=== PATIENT | female | born 1930 | race Caucasian/White ===

== ENCOUNTER 2017-09-10 13:35 | Emergency (ER) | payer OTHER ==
[2017-09-10 14:52] LABS: Urine Bacteria >50 /HPF (<20); Urine Culture Reflex Order NOT NEEDED; Urine RBC <5 /HPF (NONE SEEN)
[2017-09-10 14:53] LABS: Urine Blood NEGATIVE (NEG); Urine Glucose NEGATIVE (NEG); Urine Protein NEGATIVE (NEG); Urine Specific Gravity 1.015 (1.005-1.030)
[2017-09-10 15:54] LABS: Absolute Lymphocytes (CBC) 1.9 K/uL (0.7-4.9); Absolute Monocytes 0.5 K/uL (0.1-1.3); Absolute Neutrophil 4.7 K/uL (1.8-8.0); Basophils % 0.7 % (0-1.3); Eosinophils % 2.5 % (0-4.4); Hematocrit 47.4 % (36.0-45.0); Lymphocytes % 25.6 % (15.3-44.8); MCH 29.4 pg (27.0-35.0); MCV 88.6 fL (80-100); MPV 8.2 fL (7.6-11.3); Monocytes % 7.3 % (3.3-12.3); RBC Red Blood Cell Count 5.34 M/uL (3.86-4.86)
[2017-09-10 16:02] LABS: Potassium 4.5 mEq/L (3.6-5.0)
[2017-09-10 16:20] LABS: Blood Morphology Comment NOT SEEN (NOT SEEN); Platelet Estimate ADEQ
[2017-09-10] MEDS ORDERED: NA CHLORIDE 0.9% 0 ML ONE (17:05)
--- NOTE | 2017-09-10 18:09 | ER ---
Nurse's Notes [facility] Name: Mame Christopher Age: 87 yrs Sex: Female : 1930 Arrival Date: 09/10/2017 Time: 13:38 Bed 26 Private MD: Diagnosis: Urinary tract infection, site not specified;Dehydration Presentation: 09/10 13:59 Presenting complaint: Patient states: I get frequent UTIs and I have one now. I was ph seen at [place] on the and they gave me antibiotics and I just don't think they helped." Pt denies fever or burning urination, reports discomfort in suprapubic area. Transition of care: patient was not received from another setting of care. Onset of symptoms was September 10, 2017. Care prior to arrival: None. 13:59 Method Of Arrival: Ambulatory ph 13:59 Acuity: ANTHONY 3 ph Triage Assessment: 14:35 General: Appears in no apparent distress. comfortable, well groomed, well developed, kr2 well nourished, Behavior is calm, cooperative, appropriate for age. Pain: Denies pain. Historical: - Allergies: 14:05 No Known Allergies; ph - Home Meds: 14:25 Eliquis 2.5 mg oral tab 1 tab 2 times per day [Active]; spironolactone 25 mg Oral tab 1 kr2 tab once daily [Active]; montelukast 10 mg oral tab 1 tab once daily [Active]; gabapentin 100 mg oral cap 100mg at breakfast, 200mg at noon, 200mg at dinner and 1500mg at bedtime [Active]; carvedilol 25 mg oral tab 1 tab 2 times per day [Active]; furosemide 40 mg Oral tab 1 tab 3 times per day [Active]; amlodipine 10 mg tab 1 tab once daily [Active]; levocetirizine 5 mg oral tab 1 tab once daily [Active]; omeprazole 40 mg Oral cpDR 1 cap once daily [Active]; levothyroxine oral 37.5mg [Active]; ipratropium-albuterol 0.5 mg-3 mg(2.5 mg base)/3 mL Inhl nebu 3 mL 4 times per day [Active]; Vitamin B-12 Oral [Active]; 14:34 Vitamin B-6 Oral [Active]; calcium [Active]; Vitamin D3 oral oral [Active]; Magnesium kr2 Oxide Oral [Active]; multivitamin with iron oral tab [Active]; Potassium Chloride Oral [Active]; Vitamin C Oral [Active]; Co Q-10 oral oral [Active]; NAC 600 mg oral cap twice a day [Active]; turmeric root extract oral oral [Active]; biotin 5000mg oral cap [Active]; - PMHx: 14:05 CHF; Atrial Fib; aortic stenosis; COPD; mitral valve prolapse; Hypertension; ph neuropathy; CLL; Hypothyroidism; - Immunization history:: Adult Immunizations up to date. - Social history:: Smoking status: Patient/guardian denies using tobacco. - Family history:: not pertinent. - Hospitalizations: : No recent hospitalization is reported. Screenin:35 Abuse screen: Denies threats or abuse. Denies injuries from another. Nutritional kr2 screening: No deficits noted. Tuberculosis screening: No symptoms or risk factors identified. Fall Risk None identified. Assessment: 14:36 General: Appears in no apparent distress. comfortable, slender, well groomed, well kr2 developed, well nourished, Behavior is calm, cooperative, appropriate for age. Pain: Denies pain. Neuro: Level of Consciousness is awake, alert, obeys commands, Oriented to person, place, time, situation, Appropriate for age. Cardiovascular: Capillary refill < 3 seconds in bilateral fingers Patient's skin is warm and dry. Respiratory: Airway is patent Respiratory effort is even, unlabored, Respiratory pattern is regular, symmetrical. GI: Abdomen is flat, non-distended. : Urine is clear. : Reports urinary frequency. EENT: Oral mucosa is moist. Derm: Skin is intact, is fragile, Skin is pink, warm \\T\\ dry. Musculoskeletal: Circulation, motion, and sensation intact. 16:37 Reassessment: Patient appears in no apparent distress at this time. Patient and/or kr2 family updated on plan of care and expected duration. Pain level reassessed. Patient is alert, oriented x 3, equal unlabored respirations, skin warm/dry/pink. Awaiting results of urine culture results from [facility] Patient denies pain at this time. 16:50 Reassessment: spoke with powerhouse helper at [facility] to see if she had faxed over ss urine culture report as requested at [id number]. order to delivery supervisor states that she is in the middle of report and will walk down to their ER momentarily to get culture report to fax over. Dr. Choi and patient/ family notified and updated. Disposition pending on culture report. 18:24 Reassessment: Patient appears in no apparent distress at this time. Patient and/or kr2 family updated on plan of care and expected duration. Pain level reassessed. Patient is alert, oriented x 3, equal unlabored respirations, skin warm/dry/pink. Patient denies pain at this time. Vital Signs: 14:05 BP 135 / 66; Pulse 71; Resp 18; Temp 97.6; Pulse Ox 97% on R/A; Weight 51.26 kg; Height ph 5 ft. 6 in. (167.64 cm); 16:36 BP 139 / 77; Pulse 71; Resp 16; Pulse Ox 97% on R/A; kr2 18:24 BP 152 / 88; Pulse 70; Resp 17; Pulse Ox 99% on R/A; kr2 14:05 Body Mass Index 18.24 (51.26 kg, 167.64 cm) ph ED Course: 13:38 Patient arrived in ED. as 14:03 Triage completed. ph 14:06 Arm band placed on. ph 14:11 Shelton Choi MD is Attending Physician. rn 14:25 Urine collected: clean catch specimen, clear. kr2 14:35 Patient has correct armband on for positive identification. Bed in low position. Call kr2 light in reach. Side rails up X 1. Adult w/ patient. Door closed. Head of bed elevated. 14:38 Meagan Newton, RN is Primary Nurse. kr2 15:45 Initial lab(s) drawn, by me, sent to lab. First set of blood cultures drawn by me. kr2 Inserted saline lock: 24 gauge in right antecubital area, using aseptic technique. Blood collected. 18:25 No provider procedures requiring assistance completed. IV discontinued, intact, kr2 bleeding controlled, No redness/swelling at site. Pressure dressing applied. Administered Medications: 16:47 CANCELLED (Physician Discretion): NS 0.9% 500 ml IV at bolus once kr2 18:11 Drug: Rocephin 1 grams Route: IV; Rate: 1 calculated rate; Site: right antecubital; kr2 18:24 Follow up: Response: No adverse reaction; IV Status: Completed infusion kr2 Outcome: 18:08 Discharge ordered by . rn 18:25 Discharged to home ambulatory, with family. kr2 18:25 Condition: good 18:25 Discharge instructions given to patient, family, Instructed on discharge instructions, follow up and referral plans. medication usage, Demonstrated understanding of instructions, follow-up care, medications, Prescriptions given X 1. 18:25 Patient left the ED. kr2 Addendum: 09/14/2017 09:10 Addendum: Culture Results: Positive urine culture. Bacteria is resistant to, has d m5 intermediate sensitivity, or is not tested against prescribed antibiotics. Report given to CHIKA for further evaluation and then to detail supervisor for follow up with patient. 09:21 Addendum: Culture Results: Phone call Attempt #1 patient is feeling better. Will follow d m5 up with PCP next week. Signatures: Chely Danielson, RN RN dm5 Lizbeth Jiang Roman, MD MD rn Smirch, Shelby, RN RN Jessi Sheridan RN RN Meagan Newton RN RN kr2
--- NOTE | 2017-09-10 18:09 | EDPHYS ---
Physician Documentation [facility] Name: Mame Christopher Age: 87 yrs Sex: Female : 1930 Arrival Date: 09/10/2017 Time: 13:38 Bed 26 Private MD: ED Physician Shelton Choi HPI: 09/10 14:37 This 87 yrs old Female presents to ER via Ambulatory with complaints of rn UTI-antibiotics didnt work. 14:37 The patient presents with urinary symptoms, dysuria, frequency. Onset: The rn symptoms/episode began/occurred 1 week(s) ago. Modifying factors: The symptoms are alleviated by nothing, the symptoms are aggravated by nothing. Severity of symptoms: At their worst the symptoms were mild, in the emergency department the symptoms are unchanged. The patient has experienced similar episodes in the past. Reports lower abd pressure, dysuria, increased urinary frequency, finished macrobid this week, felt better, seen at [place] last week, culture obtained but does not have results. + previous UTIs, has had to be admitted before with sepsis.. 14:37 The patient has been recently seen by a physician:Jose garza Historical: - Allergies: 14:05 No Known Allergies; ph - Home Meds: 14:25 Eliquis 2.5 mg oral tab 1 tab 2 times per day [Active]; spironolactone 25 mg Oral tab 1 kr2 tab once daily [Active]; montelukast 10 mg oral tab 1 tab once daily [Active]; gabapentin 100 mg oral cap 100mg at breakfast, 200mg at noon, 200mg at dinner and 1500mg at bedtime [Active]; carvedilol 25 mg oral tab 1 tab 2 times per day [Active]; furosemide 40 mg Oral tab 1 tab 3 times per day [Active]; amlodipine 10 mg tab 1 tab once daily [Active]; levocetirizine 5 mg oral tab 1 tab once daily [Active]; omeprazole 40 mg Oral cpDR 1 cap once daily [Active]; levothyroxine oral 37.5mg [Active]; ipratropium-albuterol 0.5 mg-3 mg(2.5 mg base)/3 mL Inhl nebu 3 mL 4 times per day [Active]; Vitamin B-12 Oral [Active]; 14:34 Vitamin B-6 Oral [Active]; calcium [Active]; Vitamin D3 oral oral [Active]; Magnesium kr2 Oxide Oral [Active]; multivitamin with iron oral tab [Active]; Potassium Chloride Oral [Active]; Vitamin C Oral [Active]; Co Q-10 oral oral [Active]; NAC 600 mg oral cap twice a day [Active]; turmeric root extract oral oral [Active]; biotin 5000mg oral cap [Active]; - PMHx: 14:05 CHF; Atrial Fib; aortic stenosis; COPD; mitral valve prolapse; Hypertension; ph neuropathy; CLL; Hypothyroidism; - Immunization history:: Adult Immunizations up to date. - Social history:: Smoking status: Patient/guardian denies using tobacco. - Family history:: not pertinent. - Hospitalizations: : No recent hospitalization is reported. ROS: 14:37 Constitutional: Negative for fever, chills, and weight loss, Eyes: Negative for injury, rn pain, redness, and discharge, Cardiovascular: Negative for chest pain, palpitations, and edema, Respiratory: Negative for shortness of breath, cough, wheezing, and pleuritic chest pain, Abdomen/GI: Negative for nausea, vomiting, diarrhea, and constipation, Back: Negative for injury and pain, MS/Extremity: Negative for injury and deformity, Skin: Negative for injury, rash, and discoloration, Neuro: Negative for headache, weakness, numbness, tingling, and seizure. Exam: 14:37 Constitutional: This is a well developed, well nourished patient who is awake, alert, rn and in no acute distress. Non-toxic appearance. Abdomen/GI: Soft, non-tender, with normal bowel sounds. No distension or tympany. No guarding or rebound. No evidence of tenderness throughout. MS/ Extremity: Pulses equal, no cyanosis. Neurovascular intact. Full, normal range of motion. Equal circumference. Neuro: Awake and alert, GCS 15, oriented to person, place, time, and situation. Cranial nerves II-XII grossly intact. Motor strength 5/5 in all extremities. Sensory grossly intact. Cerebellar exam normal. Normal gait. Vital Signs: 14:05 BP 135 / 66; Pulse 71; Resp 18; Temp 97.6; Pulse Ox 97% on R/A; Weight 51.26 kg; Height ph 5 ft. 6 in. (167.64 cm); 16:36 BP 139 / 77; Pulse 71; Resp 16; Pulse Ox 97% on R/A; kr2 18:24 BP 152 / 88; Pulse 70; Resp 17; Pulse Ox 99% on R/A; kr2 14:05 Body Mass Index 18.24 (51.26 kg, 167.64 cm) ph MDM: 14:11 Patient medically screened. rn 16:48 ED course: We have called [facility] multiple times for urine culture sensitivities, they rn state have received fax but have not gotten to send results. . 17:56 Differential diagnosis: urinary tract infection. Data reviewed: vital signs, nurses rn notes, lab test result(s), and as a result, I will discharge patient. Counseling: I had a detailed discussion with the patient and/or guardian regarding: the historical points, exam findings, and any diagnostic results supporting the discharge/admit diagnosis, lab results, the need for outpatient follow up, to return to the emergency department if symptoms worsen or persist or if there are any questions or concerns that arise at home. Special discussion: I discussed with the patient/guardian in detail that at this point there is no indication for admission to the hospital. It is understood, however, that if the symptoms persist or worsen the patient needs to return immediately for re-evaluation. ED course: Sensitivities received from [facility], sensitive to rocephin, will give rocephin and dc with cefuroxime, patient has been treated with this before and done well, return precautions given, normal procalcitonin and WBC. . 09/10 14:18 Order name: Urine Culture rn 09/10 14:18 Order name: Urine Microscopic Only; Complete Time: 14:55 rn 09/10 14:43 Order name: Urine Dipstick--Ancillary (enter results); Complete Time: 14:55 bd 09/10 15:25 Order name: CBC with Diff; Complete Time: 16:27 rn 09/10 15:25 Order name: Basic Metabolic Panel; Complete Time: 16:27 rn 09/10 15:25 Order name: Blood Culture Adult (2) rn 09/10 14:18 Order name: Urine Dipstick-Ancillary (obtain specimen); Complete Time: 14:38 rn 09/10 15:25 Order name: IV Start; Complete Time: 15:48 rn 09/10 15:25 Order name: Procalcitonin; Complete Time: 16:27 rn 09/10 16:20 Order name: Manual Differential; Complete Time: 16:27 EDMS Administered Medications: 16:47 CANCELLED (Physician Discretion): NS 0.9% 500 ml IV at bolus once kr2 18:11 Drug: Rocephin 1 grams Route: IV; Rate: 1 calculated rate; Site: right antecubital; kr2 18:24 Follow up: Response: No adverse reaction; IV Status: Completed infusion kr2 Disposition: 09/10/17 18:08 Discharged to Home. Impression: Urinary tract infection, site not specified, Dehydration. - Condition is Stable. - Discharge Instructions: Dehydration, Adult, Urinary Tract Infection. - Prescriptions for cefpodoxime 100 mg Oral Tablet - take 2 tablet by ORAL route every 12 hours for 10 days take with food; 40 tablet. - Medication Reconciliation Form, Thank You Letter, Antibiotic Education, Prescription Opioid Use form. - Follow up: Private Physician; When: As needed; Reason: Recheck today's complaints, Re-evaluation by your physician. - Problem is new. - Symptoms have improved. Signatures: Dispatcher [employer] EDMS Shelton Choi MD MD rn Hall, Patricia, RN RN Meagan Langley RN RN kr2 Corrections: (The following items were deleted from the chart) 16:20 15:56 CBC Smear Scan ordered. EDMS EDMS 16:47 16:39 NS 0.9% 500 ml IV at bolus once ordered. rn kr2 18:07 17:56 ED course: Sensitivities received from [place]. rn rn
[2017-09-10] MEDS ORDERED: CEFTRIAXONE/SWI 1gm 1 GM/10 ML SYR ONE (18:27)
[2017-09-10 18:44] VITALS: TEMP 97.6
[2017-09-10 18:47] VITALS: BP 152/88; O2SAT 99
== END 2017-09-10 18:25 | disposition home or self-care (01) ==
LOC: ER 13:35
DX: N39.0 Urinary tract infection, site not specified (principal); E86.0 Dehydration; I10 Essential (primary) hypertension; I48.91 Unspecified atrial fibrillation; J44.9 Chronic obstructive pulmonary disease, unspecified; I50.9 Heart failure, unspecified; E03.9 Hypothyroidism, unspecified; I34.1 Nonrheumatic mitral (valve) prolapse; Z79.02 Long term (current) use of antithrombotics/antiplatelets
CPT/HCPCS: 36415; 80048; 84145; 85025; 87040 ×2; 87077; 87086; 87088; 87186; 96374; 99284; J0696; 81003; 81015

== ENCOUNTER 2017-09-26 14:55 | Emergency (ER) | payer OTHER ==
--- OUTSIDE RECORDS SUMMARY | 2017-09-26 14:57 | XMS REPORT | Clinical Summary ---
:1930 Author Organization [facility] Address [address] [place] [address] Care Team Providers Name Role Phone Negro Villela MD Primary Care Provider Allergies No Known Allergies Current Medications Prescription Sig. Disp. Refills Start Date End Date Status apixaban (ELIQUIS) Take by mouth 2 Active 2.5 mg tablet (two) times a day. montelukast Take 10 mg by Active (SINGULAIR) 10 mg mouth nightly. tablet gabapentin Take 100 mg by Active (NEURONTIN) 100 mg mouth 3 (three) capsule times a day. carvedilol (COREG) Take 25 mg by Active 25 MG tablet mouth 2 (two) times a day with meals. amLODIPine Take 10 mg by Active (NORVASC) 10 mg mouth daily. tablet omeprazole Take 40 mg by Active (PriLOSEC) 40 MG mouth daily. capsule levothyroxine Take 37.5 mcg by Active (SYNTHROID, mouth every LEVOXYL) 88 mcg morning. tablet ipratropium-albuter Take 3 mL by Active ol (DUO-NEB) nebulization 4 0.5-2.5 mg/mL (four) times a nebulizer day. cyanocobalamin 1000 Take 1,000 mcg by Active MCG tablet mouth daily. pyridoxine, vitamin Take 100 mg by Active B6, (B-6) 100 MG mouth daily. tablet CALCIUM CARBONATE Take by mouth. Active (CALCIUM 500 ORAL) cholecalciferol, Take 1,000 Units Active vitamin D3, by mouth daily. (VITAMIN D3) 1,000 unit capsule magnesium gluconate Take 500 mg by Active (MAGONATE) 500 mg mouth daily. tablet tablet multivitamin Take 1 tablet by Active (THERAGRAN) tablet mouth daily. potassium 99 mg Take 595 mg by Active tablet mouth. ascorbic acid, Take 1,000 mg by Active vitamin C, (vitamin mouth daily. C) 1000 MG tablet UBIDECARENONE/VITAM Take by mouth. Active IN E MIXED (COQ10 SG 100 ORAL) ACETYLCYSTEINE (NAC Take by mouth. Active ORAL) TURMERIC ROOT Take by mouth. Active EXTRACT ORAL BIOTIN ORAL Take by mouth. Active gabapentin Take 1,500 mg by Active (NEURONTIN) 300 mg mouth nightly. capsule furosemide (LASIX) Take 40 mg by 02/26/20 Discontinued 40 mg tablet mouth 2 (two) 17 times a day. cefpodoxime Take 1 tablet 10 tablet 0 02/25/2017 03/02/20 (VANTIN) 100 MG (100 mg total) by 17 tablet mouth 2 (two) times a day for 5 days. furosemide (LASIX) Take 1 tablet (40 90 tablet 3 02/25/2017 03/27/20 40 mg tablet mg total) by 17 mouth 3 (three) times a day for 30 days. Active Problems Problem Noted Date Acute on chronic congestive heart failure 02/23/2017 Acute hypoxemic respiratory failure 02/23/2017 Encounters Date Type Specialty Care Team Description 02/23/2017 - Emergency General Internal Dahiana Brower Acute on chronic 02/25/2017 Medicine MD Rohan congestive heart VargasZurdo MD failure, unspecified congestive heart failure type (Primary Dx) after 09/25/2016 Immunizations Name Dates Previously Given Next Due FLUCELVAX QUAD PF (0.5mL syringe) 02/25/2017 Social History Tobacco Use Types Packs/Day Years Used Date Never Smoker Alcohol Use Drinks/Week oz/Week Comments No Sex Assigned at Date Recorded Not on file Last Filed Vital Signs Vital Sign Reading Time Taken Blood Pressure 135/64 02/25/2017 8:58 AM CDT Pulse 87 02/25/2017 10:14 AM CDT Temperature 35.9 C (96.6 F) 02/25/2017 8:58 AM CDT Respiratory Rate 16 02/25/2017 10:14 AM CDT Oxygen Saturation 97% 02/25/2017 10:02 AM CDT Inhaled Oxygen Concentration - - Weight - - Height 167.6 cm (5' 6") 02/23/2017 12:07 PM CDT Body Mass Index - - Plan of Treatment Health Maintenance Due Date Last Done Comments ZOSTER VACCINE 1989 PNEUMOCOCCAL POLYSACCHARIDE VACCINE AGE 65 AND OVER 1994 PNEUMOCOCCAL-13 1994 INFLUENZA VACCINE 01/03/2018 02/25/2017 Procedures Procedure Name Priority Date/Time Associated Comments Diagnosis ECHOCARDIOGRAM 2D Routine 02/24/2017 4:00 Results for this COMPLETE W MMODE PM CDT procedure are in SPECTRAL COLOR DOPPLER the results (43891) section. after 09/25/2016 Results CBC with platelet and differential (02/25/2017 5:30 AM)Only the most recent of3 resultswithin the time period is included. Component Value Ref Range WBC 6.20 4.50 - 11.00 k/uL RBC 4.25 4.20 - 5.50 m/uL HGB 12.6 12.0 - 16.0 g/dL HCT 38.7 37.0 - 47.0 % MCV 91.1 82.0 - 100.0 fL MCH 29.6 27.0 - 34.0 pg MCHC 32.6 31.0 - 37.0 g/dL RDW - SD 45.2 37.0 - 55.0 fL MPV 10.1 8.8 - 13.2 fL Platelet count 190 150 - 400 k/uL Nucleated RBC 0.00 /100 WBC Neutrophils 57.4 39.0 - 69.0 % Lymphocytes 24.8 (L) 25.0 - 45.0 % Monocytes 13.1 (H) 0.0 - 10.0 % Eosinophils 3.7 0.0 - 5.0 % Basophils 0.8 0.0 - 1.0 % Immature granulocytes 0.2Comment: "Immature granulocytes" 0.0 - 1.0 % (promyelocytes, myelocytes, metamyelocytes) Specimen Performing Laboratory Blood [facility] DEPARTMENT OF PATHOLOGY AND GENOMIC MEDICINE [address] [place] [address] Estimated GFR (02/25/2017 4:00 AM)Only the most recent of3 resultswithin the time period is included. Component Value Ref Range GFR Non Af Amer 52 (A) mL/min/1.73 m2 GFR Af Amer 63 mL/min/1.73 m2 Comment: Chronic kidney disease: <60 mL/min/1.73m2 Kidney failure: <15 mL/min/1.73m2 The estimated GFR is calculated from the IDMS-traceable Modification of Diet in Renal Disease Equation. The accuracy of the calculation is poor when the creatinine is normal. Calculated values >90 mL/min/1.73m2 are not reported. This equation has not been validated in children (<18 years), women, the elderly (>70 years), or ethnic groups other than Caucasians and Americans. Specimen Performing Laboratory Plasma specimen [facility] DEPARTMENT OF PATHOLOGY AND [facility] MEDICINE [address] [place] [address] Basic metabolic panel (02/25/2017 4:00 AM)Only the most recent of2 resultswithin the time period is included. Component Value Ref Range Sodium 138 135 - 148 mEq/L Potassium 4.1 3.5 - 5.0 mEq/L Chloride 93 (L) 98 - 112 mEq/L CO2 31 24 - 31 mEq/L Anion gap 14 7 - 15 mEq/L Comment: Starting from September , anion gap calculation no longer incorporates potassium. Please note the change. BUN 32 (H) 8 - 23 mg/dL Creatinine 1.0 (H) 0.5 - 0.9 mg/dL Glucose 87 65 - 99 mg/dL Calcium 9.7 8.8 - 10.2 mg/dL Specimen Performing Laboratory Plasma specimen [facility] [place] [address] Echocardiogram complete w contrast and 3D if needed (02/24/2017 4:00 PM) Specimen [facility] [address] [place] [address] Narrative Echocardiography Report [address] [place] [address] Pat.Name:Moon KNOX.ID:[id number] .Date: 02/24/2017 Refer.MD:ZURDO VARGAS MD Exam Time: 3:12:00 PMStudy Type:Routine Echo Height:65inWeight:106lb BSA: 1.51 m2 DOBAge:1930,86Y Sex: FEMALEBP:118/57 HR:82 bpm Sonogrphr: Vaishali Higgins RDCS, RVT Pat. Stat.:Inpatient Room:J81 Study Status:Final Echo Event ID:[id number] Order ID:[id number] Reason for Study:Heart Failure History / Clinical:COPD, Congestive Heart Failure, Hypertension, Shortness of Breath, Cancer, Coronary Artery Disease Procedures:2D Echo, Colorflow Doppler, Portable Race:White SUMMARY: LV systolic function is hyperdynamic. Estimated EF is >70%. Severe aortic valve stenosis and mild aortic regurgitation. Moderate tricuspid regurgitation. FINDINGS: LV: LV size is normal. Concentric left ventricular remodeling. LVsystolic function is hyperdynamic. Overall wall motion isnormal. Estimated EF is >70%. RV: RV size is normal. RV systolic function is normal. LA: LA volume is severely enlarged. RA: RA volume is moderately enlarged. AO: Aortic root diameter is normal. ERIKA: No pericardial effusion. AV: Severe thickening and calcification of AV leaflets. Mild aorticregurgitation. Severe aortic valve stenosis. MV: Mild mitral annular calcification. Mild mitral regurgitation. PV: No structural PV abnormalities noted. A trace of pulmonic regurgitation. TV: Dilated tricuspid annulus. Moderate tricuspid regurgitation Gayle: LV relaxation is impaired. LV filling pressure is elevated. Other:Estimated PA systolic pressure is 51 mmHg, assuming a mean RAPof 15 mmHg. MEASUREMENTS: 2D Parasternal [place] LVOT 2 cmLA Ds4.9 cm LVIDd4.2 cmIndex 2.8 cm/m Ao An2.2 cm LVIDs1.7 cmAo Rtd 2.8 cm Index1.8 cm/m LV%fs 60.9 % LV Ayzf267.7 g(87-129) IVSd 1.1 cmLVM Vcomv076.7 g/m2 LVPWd1.1 cmRWT0.5 LA Sng Plane LA Area 31.5 cm2(8.8-23.4) LA Vol 118.9 ml Index78.7 ml/m LA LngAx 6.9 cm RA Sng Plane RA Area 21.6 cm2(8.3-19.5) RA Vol62.4 ml Index41.3 ml/m RA LngAx 6.1 cm DOPPLER AV For Flow/KHOA AV pkVel 469.7 cm/s (100-170) AV ET325 msec AV mnVel 310.6 cm/Rey AC/ET 0.4 AV pkPG 88.3 mmHgAV TVI 100.9 cm AV Mean G 48 mmHgAVpkAcRt 8170.8 cm/s2 AV AC130 msec (83-118) AV OqBj2947.3 cm/s2 LVOT For Flow LVOT Area3.1 cm2 LVOT SV 106.8 ml YGKCcsWvp288.3 cm/sHR93.5 bpm GPGPfxVR31.8 mmHgLVOT CO 10 l/min LVOTmnPG 5.7 mmHgLVOT CI 6.6 l/m/m2 LVOT TVI34 cm TV Pressure Gradient TV PkVel 322.3 cm/sTV PG 41.6 mmHg Signed 02/24/2017 07:12 PM Memo Ervin M.D. Procedure Note Interface, Radiology Results In - 02/24/2017 7:13 PM CDT Echocardiography Report [address] [place] [address] Pat.Name: LOLITA KNOX Pat.ID: [id number] .Date: 02/24/2017 Refer.MD: ZURDO VARGAS MD Exam Time: 3:12:00 PM Study Type:Routine Echo Height: 65in Weight: 106lb BSA: 1.51 m2 Age: 2 1930,86Y Sex: FEMALE BP: 118/57 HR: 82 bpm Sonogrphr: Vaishali Higgins RDCS, RVT Pat. Stat.:Inpatient Room: [facility] Study Status:Final Echo Event ID:[id number] Order ID: [id number] Reason for Study:Heart Failure History / Clinical:COPD, Congestive Heart Failure, Hypertension, Shortness of Breath, Cancer, Coronary Artery Disease Procedures:2D Echo, Colorflow Doppler, Portable Race: White SUMMARY: LV systolic function is hyperdynamic. Estimated EF is >70%. Severe aortic valve stenosis and mild aortic regurgitation. Moderate tricuspid regurgitation. FINDINGS: LV: LV size is normal. Concentric left ventricular remodeling. LV systolic function is hyperdynamic. Overall wall motion is normal. Estimated EF is >70%. RV: RV size is normal. RV systolic function is normal. LA: LA volume is severely enlarged. RA: RA volume is moderately enlarged. AO: Aortic root diameter is normal. ERIKA: No pericardial effusion. AV: Severe thickening and calcification of AV leaflets. Mild aortic regurgitation. Severe aortic valve stenosis. MV: Mild mitral annular calcification. Mild mitral regurgitation. PV: No structural PV abnormalities noted. A trace of pulmonic regurgitation. TV: Dilated tricuspid annulus. Moderate tricuspid regurgitation Gayle: LV relaxation is impaired. LV filling pressure is elevated. Other: Estimated PA systolic pressure is 51 mmHg, assuming a mean RAP of 15 mmHg. MEASUREMENTS: 2D Parasternal [place] LVOT 2 cm LA Ds 4.9 cm LVIDd 4.2 cm Index 2.8 cm/m Ao An 2.2 cm LVIDs 1.7 cm Ao Rtd 2.8 cm Index 1.8 cm/m LV%fs 60.9 % LV Mass 165.7 g (87-129) IVSd 1.1 cm LVM Index 109.7 g/m2 LVPWd 1.1 cm RWT 0.5 LA Sng Plane LA Area 31.5 cm2 (8.8-23.4) LA Vol 118.9 ml Index 78.7 ml/m LA LngAx 6.9 cm RA Sng Plane RA Area 21.6 cm2 (8.3-19.5) RA Vol 62.4 ml Index 41.3 ml/m RA LngAx 6.1 cm DOPPLER AV For Flow/KHOA AV pkVel 469.7 cm/s (100-170) AV ET 325 msec AV mnVel 310.6 cm/s AV AC/ET 0.4 AV pkPG 88.3 mmHg AV TVI 100.9 cm AV Mean G 48 mmHg AVpkAcRt 8170.8 cm/s2 AV AC 130 msec (83-118) AV DeRt 1446.3 cm/s2 LVOT For Flow LVOT Area 3.1 cm2 LVOT SV 106.8 ml LVOTpkVel 164.3 cm/s HR 93.5 bpm LVOTpkPG 10.8 mmHg LVOT CO 10 l/min LVOTmnPG 5.7 mmHg LVOT CI 6.6 l/m/m2 LVOT TVI 34 cm TV Pressure Gradient TV PkVel 322.3 cm/s TV PG 41.6 mmHg Signed 02/24/2017 07:12 PM Memo Ervin M.D. Magnesium level (02/24/2017 4:00 AM) Component Value Ref Range Magnesium 2.3 1.6 - 2.4 mg/dL Specimen Performing Laboratory Plasma specimen [facility] DEPARTMENT OF PATHOLOGY AND GENOMIC MEDICINE [address] [place] [address] Hepatic function panel (02/24/2017 4:00 AM) Component Value Ref Range Albumin 3.7 3.5 - 5.0 g/dL Total bilirubin 0.6 0.0 - 1.2 mg/dL Bilirubin direct <0.2 0.0 - 0.3 mg/dL Alkaline phosphatase 91 35 - 104 U/L Protein 6.6 6.3 - 8.3 g/dL Comment: 4.6-7.0 g/dL 1 week 4.4-7.6 g/dL 7 months-1year5.1-7.3 g/dL 1-2 years5.6-7.5 g/dL >3 years6.0-8.0 g/dL 18-150 6.3-8.3 g/dL ALT 22 5 - 50 U/L AST 25 10 - 35 U/L Specimen Performing Laboratory Plasma specimen [facility] DEPARTMENT OF PATHOLOGY AND GENOMIC MEDICINE [address] [place] [id number] Urinalysis screen and microscopy, with reflex to culture (02/23/2017 5:57 PM) Component Value Ref Range Specimen site Clean catch Color, UA Straw Appearance, UA Clear Specific gravity, UA 1.009 1.001 - 1.035 pH, UA 8.0 5.0 - 8.5 Protein, UA Negative Negative Glucose, UA Negative Negative Ketones, UA Negative Negative Bilirubin, UA Negative Negative Blood, UA Negative Negative Nitrite, UA Negative Negative Urobilinogen, UA <2.0 <2.0 Leukocyte esterase, UA Small (A) Negative Epithelial cells, UA 1 /HPF WBC, UA 4 0 - 4 /HPF RBC, UA 1 0 - 2 /HPF Bacteria, UA Many (A) None seen Yeast, UA None seen Yeast with pseudohyphae, UA None seen Specimen Performing Laboratory Urine [facility] DEPARTMENT OF PATHOLOGY AND [address] [address] Gram stain (02/23/2017 4:43 PM) Component Value Ref Range Gram stain result Rare WBC's Many Gram negative rods Comment: Specimen Information Specimen Source: Urine Specimen Site: See UA Specimen Performing Laboratory Urine [facility] DEPARTMENT OF PATHOLOGY AND [facility] MEDICINE [address] [place] [address] Urine culture (02/23/2017 4:43 PM) Component Value Ref Range Urine culture isolate Klebsiella pneumoniae >10-5 cfu/ml The performance characteristics of this assay on this isolate were validated by the Microbiology Laboratory at [facility].This source has not been approved by the U.S. Food and Drug Administration.The results are not intended to be used as the sole means for clinical diagnosis or patient management.The Microbiology Laboratory is authorized under the clinical Laboratory Improvement Amendments of 1988 (CLIA-88) to perform high complexity testing. (A) Comment: Specimen Information Specimen Source: Urine Specimen Site: See UA Urine culture isolate Mixed Gram positive davian 10-3 cfu/ml (A) Specimen Performing Laboratory Urine [facility] DEPARTMENT OF PATHOLOGY AND GENOMIC MEDICINE [address] [place] [address] Organism Antibiotic Method Susceptibility Klebsiella pneumoniae Ampicillin JONN 8 mcg/mL: Resistant Klebsiella pneumoniae Amoxicillin/Clavulanate JONN <=2/1 mcg/mL: Susceptible Klebsiella pneumoniae Amikacin JONN <=4 mcg/mL: Susceptible Klebsiella pneumoniae Aztreonam JONN <=1 mcg/mL: Susceptible Klebsiella pneumoniae Ceftazidime JONN <=0.5 mcg/mL: Susceptible Klebsiella pneumoniae Ciprofloxacin JONN <=0.5 mcg/mL: Susceptible Klebsiella pneumoniae Ceftriaxone JONN <=0.5 mcg/mL: Susceptible Klebsiella pneumoniae Cefuroxime Sodium JONN <=4 mcg/mL: Susceptible Klebsiella pneumoniae Cefazolin JONN 2 mcg/mL: Susceptible Klebsiella pneumoniae Cefipime JONN <=0.5 mcg/mL: Susceptible Klebsiella pneumoniae Nitrofurantoin JONN <=16 mcg/mL: Susceptible Klebsiella pneumoniae Cefoxitin JONN 8 mcg/mL: Susceptible Klebsiella pneumoniae Gentamicin JONN 1 mcg/mL: Susceptible Klebsiella pneumoniae Imipenem JONN <=0.25 mcg/mL: Susceptible Klebsiella pneumoniae Levofloxacin JONN <=1 mcg/mL: Susceptible Klebsiella pneumoniae Meropenem JONN <=0.125 mcg/mL: Susceptible Klebsiella pneumoniae Tobramycin JONN 1 mcg/mL: Susceptible Klebsiella pneumoniae Ampicillin/Sulbactam JONN 2/1 mcg/mL: Susceptible Klebsiella pneumoniae Trimethoprim/Sulfamethoxazol JONN <=0.5/9.5 mcg/mL: e Susceptible Klebsiella pneumoniae Tetracycline JONN <=1 mcg/mL: Susceptible Klebsiella pneumoniae Piperacillin/Tazobactam JONN <=2/4 mcg/mL: Susceptible Klebsiella pneumoniae Ertapenem JONN <=0.125 mcg/mL: Susceptible Klebsiella pneumoniae Tigecycline JONN 1 mcg/mL: Susceptible Troponin (02/23/2017 4:09 PM) Component Value Ref Range Troponin <0.30 0.00 - 0.30 ng/mL Comment: 0.30 - 1.49 ng/mlMay indicate increased risk of acute coronary syndrome. >=1.5 ng/mlConsistent with acute myocardial infarction. The diagnostic value of a single normal or non-diagnostic result is questionable.Serial samples at 2-6 hour intervals are required to rule out acute myocardial injury. Specimen Performing Laboratory Plasma specimen [facility] DEPARTMENT OF PATHOLOGY AND GENOMIC MEDICINE [address] [place] [address] ECG ED Preliminary Interpretation - NOT AN ORDER (02/23/2017 2:27 PM) Narrative Dahiana Brower MD 02/23/20172:27 PM ECG ED Preliminary Interpretation - Not an Order Performed by: DAHIANA BROWER Authorized by: DAHIANA BROWER ECG reviewed by ED Physician in the absence of a blower feeder dyed raw stock: yes Previous ECG: Previous ECG:Unavailable Interpretation: Interpretation: abnormal Rate: ECG rate:78 ECG rate assessment: normal Rhythm: Rhythm: atrial fibrillation Ectopy: Ectopy: none QRS: QRS axis:Normal Conduction: Conduction: normal ST segments: ST segments:Normal T waves: T waves: normal Other findings: Other findings: LVH XR Chest 2 Vw (02/23/2017 12:47 PM) Specimen Performing Laboratory [facility] [address] [place] [address] Narrative Examination:XR CHEST 2 VW Clinical History: SHORTNESS OF BREATH Comparison: January 31, 2013 Technique: Frontal and lateral views of the chest Impression: Lungs are hyperinflated. Diffuse interstitial changes similar to prior suggesting chronic interstitial lung disease and fibrosis. The heart is enlarged, and there may also be a component of hydrostatic interstitial edema. There is a small right pleural effusion with underlying nasal or opacity, atelectasis or pneumonia. Bones are osteopenic. Marked compression deformity is seen a upper lumbar vertebral body. Aorta is markedly calcified. [facility]-[id number] Procedure Note [facility], Radiology Results Incoming - 02/23/2017 12:58 PM CDT Examination: XR CHEST 2 VW Clinical History: SHORTNESS OF BREATH Comparison: January 31, 2013 Technique: Frontal and lateral views of the chest Impression: Lungs are hyperinflated. Diffuse interstitial changes similar to prior suggesting chronic interstitial lung disease and fibrosis. The heart is enlarged , and there may also be a component of hydrostatic interstitial edema. There is a small right pleural effusion with underlying nasal or opacity, atelectasis or pneumonia. Bones are osteopenic. Marked compression deformity is seen a upper lumbar vertebral body. Aorta is markedly calcified. [facility]-[id number] Troponin, I-Stat (02/23/2017 12:30 PM) Component Value Ref Range Troponin, I-Stat 0.00 0.00 - 0.08 ng/mL Comment: 0.09 - 1.49 ng/mlMay indicate increased risk of acute coronary syndrome. >=1.5 ng/mlConsistent with acute myocardial infarction. The diagnostic value of a single normal or non-diagnostic result is questionable.Serial samples at 2-6 hour intervals are required to rule out acute myocardial injury. Specimen Performing Laboratory Plasma specimen DEPARTMENT OF PATHOLOGY AND GENOMIC MEDICINE, [address] [address] B natriuretic pep, I-Stat (02/23/2017 12:30 PM) Component Value Ref Range BNP, I-Stat 587 (H) 0 - 100 pg/mL Specimen Performing Laboratory Blood [facility] OF PATHOLOGY [place] [address] Comprehensive metabolic panel (02/23/2017 12:30 PM) Component Value Ref Range Sodium 137 128 - 145 mEq/L Potassium 4.7 3.6 - 5.1 mEq/L CO2 35 (H) 18 - 33 mEq/L Chloride 96 (L) 98 - 108 mEq/L Glucose 95 73 - 118 mg/dL Calcium 9.5 8.0 - 10.3 mg/dL BUN 24 (H) 7 - 22 mg/dL Creatinine 1.1 0.6 - 1.2 mg/dL Alkaline phosphatase 80 42 - 141 U/L ALT 24 10 - 47 U/L AST 29 11 - 38 U/L Total bilirubin 0.9 0.2 - 1.6 mg/dL Albumin 4.3 3.3 - 5.5 g/dL Protein 6.9 6.4 - 8.1 g/dL Anion gap 6 (L) 7 - 15 mEq/L Comment: Starting from September , anion gap calculation no longer incorporates potassium. Please note the change. A/G ratio 1.7 0.7 - 3.8 Specimen Performing Laboratory Plasma specimen [facility]PARTMENT OF PATHOLOGY AND GENOMIC MEDICINE[address] [address] ECG 12 lead (02/23/2017 12:21 PM) Component Value Ref Range Ventricular rate 78 Atrial rate 91 QRSD interval 98 QT interval 386 QTC interval 440 QRS axis 1 -44 T wave axis 52 EKG impression Atrial fibrillation-Left axis deviation-Moderate voltage criteria for LVH, may be normal variant-Abnormal ECG-In automated comparison with ECG of 01-FEB-2013 19:14,-Atrial fibrillation has replaced Sinu s rhythm- Specimen Performing Laboratory [facility] MUSE [address] [place] [address] after 09/25/2016 Insurance Payer Benefit Plan / Group Subscriber ID Type Phone Address MEDICARE MEDICARE PART A AND B xxxxxxxxxx Medicare [place], [place] [employer]ET[employer] A[employer] PPO OPEN CHOICE xxxxxxxxx PPO Home: [id number] [phone] [id number]
[2017-09-26 16:33] LABS: Urine Appearance CLEAR; Urine Bilirubin NEGATIVE (NEG); Urine Blood NEGATIVE (NEG); Urine Color YELLOW; Urine Glucose NEGATIVE (NEG); Urine Protein NEGATIVE (NEG); Urine Urobilinogen 0.2 mg/dL (0.2-1.0); Urine pH 6.5 (5.0-7.0)
[2017-09-26 16:54] LABS: Urine Microscopic Reflex NO UMIC
--- NOTE | 2017-09-26 16:58 | ER ---
Nurse's Notes [facility] Name: Jo Christopher Age: 87 yrs Sex: Female : 1930 Arrival Date: 09/26/2017 Time: 14:58 Bed 13 Private MD: Diagnosis: Dysuria Presentation: 09/26 15:11 Presenting complaint: Patient states: Dr. Villela thinks i might have a UTI and be tw2 possibly septic and i am having some stomach pain. Transition of care: patient was not received from another setting of care. Onset of symptoms was September 26, 2017. Initial Sepsis Screen: Does the patient meet any 2 criteria? No. Patient's initial sepsis screen is negative. Does the patient have a suspected source of infection? Yes: Dysuria/Frequency/Urgency/UTI. Care prior to arrival: None. 15:11 Method Of Arrival: Ambulatory tw2 15:11 Acuity: ANTHONY 3 tw2 15:27 Initial Sepsis Screen: Does the patient meet any 2 criteria?. jl7 Historical: - Home Meds: 15:14 amlodipine 10 mg tab 1 tab once daily [Active]; biotin 5000mg Oral cap [Active]; tw2 calcium [Active]; carvedilol 25 mg Oral tab 1 tab 2 times per day [Active]; Co Q-10 Oral [Active]; Eliquis 2.5 mg Oral tab 1 tab 2 times per day [Active]; furosemide 40 mg Oral tab 1 tab 3 times per day [Active]; gabapentin 100 mg Oral cap 100mg at breakfast, 200mg at noon, 200mg at dinner and 1500mg at bedtime [Active]; ipratropium-albuterol 0.5 mg-3 mg(2.5 mg base)/3 mL Inhl nebu 3 mL 4 times per day [Active]; levocetirizine 5 mg Oral tab 1 tab once daily [Active]; levothyroxine oral 37.5mg [Active]; Magnesium Oxide Oral [Active]; multivitamin with iron Oral tab [Active]; montelukast 10 mg Oral tab 1 tab once daily [Active]; NAC 600 mg Oral cap twice a day [Active]; omeprazole 40 mg Oral cpDR 1 cap once daily [Active]; Potassium Chloride Oral [Active]; spironolactone 25 mg Oral tab 1 tab once daily [Active]; turmeric root extract Oral [Active]; Vitamin B-12 Oral [Active]; Vitamin B-6 Oral [Active]; Vitamin C Oral [Active]; Vitamin D3 Oral [Active]; - PMHx: 15:14 Aortic Stenosis; neuropathy; mitral valve prolapse; Hypothyroidism; Hypertension; tw2 Atrial Fib; CHF; CLL; COPD; - Immunization history:: Adult Immunizations up to date. - Social history:: Smoking status: Patient/guardian denies using tobacco. Screenin:16 Abuse screen: Denies threats or abuse. Denies injuries from another. Nutritional jl7 screening: No deficits noted. Tuberculosis screening: No symptoms or risk factors identified. Fall Risk None identified. Assessment: 15:50 General: Appears in no apparent distress. comfortable, Behavior is calm, cooperative, jl7 appropriate for age. Pain: Denies pain. Neuro: Level of Consciousness is awake, alert, obeys commands, Oriented to person, place, time, situation. Cardiovascular: Heart tones S1 S2 present Patient's skin is warm and dry. Respiratory: Airway is patent Respiratory effort is even, unlabored, Respiratory pattern is regular, symmetrical. GI: No signs and/or symptoms were reported involving the gastrointestinal system. : Denies burning with urination, pain. EENT: No signs and/or symptoms were reported regarding the EENT system. Derm: Skin is pink, warm \T\ dry. 17:00 Reassessment: Dr. Woodruff at bedside discussing plan of care. dm5 Vital Signs: 15:11 BP 107 / 64; Pulse 81; Resp 17; Temp 97.9(TE); Pulse Ox 95% on R/A; Weight 49.9 kg (R); tw2 Height 5 ft. 6 in. (167.64 cm); Pain 3/10; 16:16 BP 122 / 60; Pulse 73; Resp 16; Pulse Ox 95% on R/A; jl7 17:00 BP 110 / 62; Pulse 72; Resp 16; Pulse Ox 95% ; dm5 15:11 Body Mass Index 17.75 (49.90 kg, 167.64 cm) tw2 ED Course: 14:58 Patient arrived in ED. sb2 15:11 Triage completed. tw2 15:11 Arm band placed on. tw2 15:17 Aime Woodruff MD is Attending Physician. gs 15:27 Alberts, Jahala, RN is Primary Nurse. jl7 16:16 Patient has correct armband on for positive identification. Bed in low position. Call jl7 light in reach. Side rails up X 1. Pulse ox on. NIBP on. 16:16 Urine collected: clean catch specimen, clear. jl7 16:58 Michael Evangelista MD is Referral Physician. 17:00 No provider procedures requiring assistance completed. Patient did not have IV access dm5 during this emergency room visit. 18:11 Primary Nurse role handed off by Talha Alberts, APOLINAR ag Administered Medications: No medications were administered Outcome: 16:58 Discharge ordered by . 17:00 Discharged to home ambulatory. dm5 17:00 Condition: stable 17:00 Discharge instructions given to patient, Instructed on discharge instructions, follow up and referral plans. Demonstrated understanding of instructions, follow-up care. 17:07 Patient left the ED. dm5 18:13 Patient left the ED. ag Signatures: Chely Danielson, RN RN dm5 Mily Mcnamara Ebony Alba, APOLINAR RN tw2 Talha Alberts, APOLINAR RN jl7 Aime Woodruff MD MD Yuni Avilez sb2
--- NOTE | 2017-09-26 16:59 | EDPHYS ---
Physician Documentation [facility] Name: Jo Christopher Age: 87 yrs Sex: Female : 1930 Arrival Date: 09/26/2017 Time: 14:58 Bed 13 Private MD: ED Physician Aime Woodruff HPI: 09/26 16:55 This 87 yrs old Female presents to ER via Ambulatory with complaints of gs dysuria. 16:55 The patient presents with urinary symptoms, dysuria. Onset: The symptoms/episode gs began/occurred 2 week(s) ago. Modifying factors: The symptoms are alleviated by nothing, the symptoms are aggravated by nothing. Associated signs and symptoms: Pertinent negatives: fever. Severity of symptoms: At their worst the symptoms were mild, in the emergency department the symptoms are unchanged. The patient has been recently seen by a physician: the patient's primary care provider, The patient has been recently seen at the [facility] Emergency Department, last week, for similar complaints was given a prescription for antibiotics. Historical: - Home Meds: 15:14 amlodipine 10 mg tab 1 tab once daily [Active]; biotin 5000mg Oral cap [Active]; tw2 calcium [Active]; carvedilol 25 mg Oral tab 1 tab 2 times per day [Active]; Co Q-10 Oral [Active]; Eliquis 2.5 mg Oral tab 1 tab 2 times per day [Active]; furosemide 40 mg Oral tab 1 tab 3 times per day [Active]; gabapentin 100 mg Oral cap 100mg at breakfast, 200mg at noon, 200mg at dinner and 1500mg at bedtime [Active]; ipratropium-albuterol 0.5 mg-3 mg(2.5 mg base)/3 mL Inhl nebu 3 mL 4 times per day [Active]; levocetirizine 5 mg Oral tab 1 tab once daily [Active]; levothyroxine oral 37.5mg [Active]; Magnesium Oxide Oral [Active]; multivitamin with iron Oral tab [Active]; montelukast 10 mg Oral tab 1 tab once daily [Active]; NAC 600 mg Oral cap twice a day [Active]; omeprazole 40 mg Oral cpDR 1 cap once daily [Active]; Potassium Chloride Oral [Active]; spironolactone 25 mg Oral tab 1 tab once daily [Active]; turmeric root extract Oral [Active]; Vitamin B-12 Oral [Active]; Vitamin B-6 Oral [Active]; Vitamin C Oral [Active]; Vitamin D3 Oral [Active]; - PMHx: 15:14 Aortic Stenosis; neuropathy; mitral valve prolapse; Hypothyroidism; Hypertension; tw2 Atrial Fib; CHF; CLL; COPD; - Immunization history:: Adult Immunizations up to date. - Social history:: Smoking status: Patient/guardian denies using tobacco. ROS: 16:55 All other systems are negative. gs Exam: 16:55 Head/Face: Normocephalic, atraumatic. Eyes: Pupils equal round and reactive to light, gs extra-ocular motions intact. Lids and lashes normal. Conjunctiva and sclera are non-icteric and not injected. Cornea within normal limits. Periorbital areas with no swelling, redness, or edema. ENT: Nares patent. No nasal discharge, no septal abnormalities noted. Tympanic membranes are normal and external auditory canals are clear. Oropharynx with no redness, swelling, or masses, exudates, or evidence of obstruction, uvula midline. Mucous membranes moist. Neck: Trachea midline, no thyromegaly or masses palpated, and no cervical lymphadenopathy. Supple, full range of motion without nuchal rigidity, or vertebral point tenderness. No Meningismus. Chest/axilla: Normal chest wall appearance and motion. Nontender with no deformity. No lesions are appreciated. 16:55 Respiratory: Lungs have equal breath sounds bilaterally, clear to auscultation and percussion. No rales, rhonchi or wheezes noted. No increased work of breathing, no retractions or nasal flaring. Abdomen/GI: Soft, non-tender, with normal bowel sounds. No distension or tympany. No guarding or rebound. No evidence of tenderness throughout. Back: No spinal tenderness. No costovertebral tenderness. Full range of motion. Skin: Warm, dry with normal turgor. Normal color with no rashes, no lesions, and no evidence of cellulitis. MS/ Extremity: Pulses equal, no cyanosis. Neurovascular intact. Full, normal range of motion. Neuro: Awake and alert, GCS 15, oriented to person, place, time, and situation. Cranial nerves II-XII grossly intact. Motor strength 5/5 in all extremities. Sensory grossly intact. Cerebellar exam normal. Normal gait. 16:55 Constitutional: The patient appears alert, awake. 16:55 Cardiovascular: Rate: normal, Rhythm: regular, Heart sounds: murmur, systolic. Vital Signs: 15:11 BP 107 / 64; Pulse 81; Resp 17; Temp 97.9(TE); Pulse Ox 95% on R/A; Weight 49.9 kg (R); tw2 Height 5 ft. 6 in. (167.64 cm); Pain 3/10; 16:16 BP 122 / 60; Pulse 73; Resp 16; Pulse Ox 95% on R/A; jl7 17:00 BP 110 / 62; Pulse 72; Resp 16; Pulse Ox 95% ; dm5 15:11 Body Mass Index 17.75 (49.90 kg, 167.64 cm) tw2 MDM: 15:35 Patient medically screened. 16:55 Differential diagnosis: urinary tract infection. Data reviewed: vital signs, nurses gs notes. Response to treatment: the patient's symptoms have markedly improved after treatment, and as a result, I will discharge patient. ED course: pt sent from pcp after 1 week abx hx recurrent uti, minimal symptoms, negative ua today appropriate abx on culture. 04 15:44 Order name: Urinalysis; Complete Time: 16:55 04 18:12 Order name: Urine Dipstick--Ancillary (enter results) ag Administered Medications: No medications were administered Disposition: 18 16:58 Discharged to Home. Impression: Dysuria. - Condition is Stable. - Discharge Instructions: Dysuria. - Medication Reconciliation Form, Thank You Letter, Antibiotic Education, Prescription Opioid Use form. - Follow up: Michael Evangelista MD; When: 2 - 3 days; Reason: Re-evaluation by your physician. Signatures: Dispatcher [employer] EDMS Chely Danielson, APOLINAR RN dm5 Mily Mcnamara Tara RN RN tw2 Aime Woodruff MD MD
[2017-09-26 17:22] VITALS: TEMP 97.9; O2SAT 95
[2017-09-26 17:24] VITALS: BP 110/62
[2017-09-26 18:32] LABS: Urine Blood TRACE (NEG); Urine Glucose NEGATIVE (NEG); Urine Protein NEGATIVE (NEG); Urine Specific Gravity 1.015 (1.005-1.030)
== END 2017-09-26 18:13 | disposition home or self-care (01) ==
LOC: ER 14:55
DX: R30.0 Dysuria (principal); I10 Essential (primary) hypertension; E03.9 Hypothyroidism, unspecified; I48.91 Unspecified atrial fibrillation; I50.9 Heart failure, unspecified; J44.9 Chronic obstructive pulmonary disease, unspecified; Z79.02 Long term (current) use of antithrombotics/antiplatelets
CPT/HCPCS: 81003; 99283

== ENCOUNTER 2017-11-27 09:32 | Emergency (ER) | payer OTHER ==
--- OUTSIDE RECORDS SUMMARY | 2017-11-27 09:35 | XMS REPORT | Clinical Summary ---
:1930 Author Organization [facility] Address [address] [place] [address] Care Team Providers Name Role Phone Negro [...] congestive heart failure type (Primary Dx) after 11/26/2016 Immunizations Name Dates Previously Given Next Due [...] Health Maintenance Due Date Last Done Comments SHINGRIX VACCINE (#1) 1979 ZOSTER VACCINE 1989 PNEUMOCOCCAL POLYSACCHARIDE VACCINE AGE 65 AND OVER 1994 PNEUMOCOCCAL-13 1994 INFLUENZA VACCINE 01/03/2018 02/25/2017 Procedures Procedure Name Priority Date/Time Associated Comments Diagnosis HC COMPLETE BLD COUNT Routine 02/25/2017 5:30 Results for this W/AUTO DIFF AM CDT procedure are in the results section. ESTIMATED GFR Routine 02/25/2017 4:00 Results for this AM CDT procedure are in the results section. BASIC METABOLIC PANEL Routine 02/25/2017 4:00 Results for this AM CDT procedure are in the results section. ECHOCARDIOGRAM 2D Routine 02/24/2017 4:00 Results for this COMPLETE W MMODE PM CDT procedure are in SPECTRAL COLOR DOPPLER the results (46017) section. HC COMPLETE BLD COUNT Routine 02/24/2017 5:05 Results for this W/AUTO DIFF AM CDT procedure are in the results section. ESTIMATED GFR Routine 02/24/2017 4:00 Results for this AM CDT procedure are in the results section. MAGNESIUM LEVEL Routine 02/24/2017 4:00 Results for this AM CDT procedure are in the results section. HEPATIC FUNCTION PANEL Routine 02/24/2017 4:00 Results for this AM CDT procedure are in the results section. BASIC METABOLIC PANEL Routine 02/24/2017 4:00 Results for this AM CDT procedure are in the results section. URINALYSIS SCREEN AND Routine 02/23/2017 5:57 Results for this MICROSCOPY, WITH REFLEX PM CDT procedure are in TO CULTURE the results section. GRAM STAIN Routine 02/23/2017 4:43 Results for this PM CDT procedure are in the results section. URINE CULTURE Routine 02/23/2017 4:43 Results for this PM CDT procedure are in the results section. TROPONIN Timed 02/23/2017 4:09 Results for this PM CDT procedure are in the results section. ECG ED PRELIMINARY Routine 02/23/2017 2:27 Results for this INTERPRETATION PM CDT procedure are in the results section. XR CHEST 2 VW STAT 02/23/2017 12:47 Results for this PM CDT procedure are in the results section. ESTIMATED GFR STAT 02/23/2017 12:30 Results for this PM CDT procedure are in the results section. B NATRIURETIC PEP, STAT 02/23/2017 12:30 Results for this I-STAT PM CDT procedure are in the results section. TROPONIN, I-STAT STAT 02/23/2017 12:30 Results for this PM CDT procedure are in the results section. COMPREHENSIVE METABOLIC STAT 02/23/2017 12:30 Results for this PANEL PM CDT procedure are in the results section. HC COMPLETE BLD COUNT STAT 02/23/2017 12:30 Results for this W/AUTO DIFF PM CDT procedure are in the results section. ECG 12-LEAD STAT 02/23/2017 12:21 Results for this PM CDT procedure are in the results section. after 11/26/2016 Results CBC with platelet and differential (02/25/2017 5:30 AM)Only the most recent of3 resultswithin the time period is included. WBC 6.20 4.50 - 11.00 k/uL [facility] DEPARTMENT OF PATHOLOGY AND GENOMIC MEDICINE RBC 4.25 4.20 - 5.50 m/uL [facility] DEPARTMENT OF PATHOLOGY AND GENOMIC MEDICINE HGB 12.6 12.0 - 16.0 g/dL [facility] DEPARTMENT OF PATHOLOGY AND GENOMIC MEDICINE HCT 38.7 37.0 - 47.0 % [facility] DEPARTMENT OF PATHOLOGY AND GENOMIC MEDICINE MCV 91.1 82.0 - 100.0 fL [facility] DEPARTMENT OF PATHOLOGY AND GENOMIC MEDICINE MCH 29.6 27.0 - 34.0 pg [facility] DEPARTMENT OF PATHOLOGY AND GENOMIC MEDICINE MCHC 32.6 31.0 - 37.0 g/dL [facility] DEPARTMENT OF PATHOLOGY AND GENOMIC MEDICINE RDW - SD 45.2 37.0 - 55.0 fL [facility] DEPARTMENT OF PATHOLOGY AND GENOMIC MEDICINE MPV 10.1 8.8 - 13.2 fL [facility] DEPARTMENT OF PATHOLOGY AND GENOMIC MEDICINE Platelet count 190 150 - 400 k/uL [facility] DEPARTMENT OF PATHOLOGY AND GENOMIC MEDICINE Nucleated RBC 0.00 /100 WBC [facility] DEPARTMENT OF PATHOLOGY AND GENOMIC MEDICINE Neutrophils 57.4 39.0 - 69.0 % [facility] DEPARTMENT OF PATHOLOGY AND GENOMIC MEDICINE Lymphocytes 24.8 (L) 25.0 - 45.0 % [facility] DEPARTMENT OF PATHOLOGY AND GENOMIC MEDICINE Monocytes 13.1 (H) 0.0 - 10.0 % [facility] DEPARTMENT OF PATHOLOGY AND GENOMIC MEDICINE Eosinophils 3.7 0.0 - 5.0 % [facility] DEPARTMENT OF PATHOLOGY AND GENOMIC MEDICINE Basophils 0.8 0.0 - 1.0 % [facility] DEPARTMENT OF PATHOLOGY AND GENOMIC MEDICINE Immature granulocytes 0.2Comment: 0.0 - 1.0 % [facility] DEPARTMENT OF "Immature PATHOLOGY AND GENOMIC granulocytes" MEDICINE (promyelocytes, myelocytes, metamyelocytes) Specimen Blood Performing Organization Address City/[facility] Phone Number [facility] DEPARTMENT OF PATHOLOGY AND [address] [place] [address] [employer] MEDICINE Estimated GFR (02/25/2017 4:00 AM)Only the most recent of3 resultswithin the time period is included. GFR Non Af Amer 52 (A) mL/min/1.73 m2 [facility] DEPARTMENT OF PATHOLOGY AND GENOMIC MEDICINE GFR Af Amer 63 mL/min/1.73 m2 [facility] DEPARTMENT OF Comment: PATHOLOGY AND GENOMIC Chronic kidney disease: <60 mL/min/1.73m2 MEDICINE Kidney failure: <15 mL/min/1.73m2 The estimated GFR is calculated from the IDMS-traceable Modification of Diet in Renal Disease Equation. The accuracy of the calculation is poor when the creatinine is normal. Calculated values >90 mL/min/1.73m2 are not reported. This equation has not been validated in children (<18 years), women, the elderly (>70 years), or ethnic groups other than Caucasians and Americans. Specimen Plasma specimen Performing Organization Address City/[facility] Phone Number [facility] DEPARTMENT OF PATHOLOGY AND [address] [place] [address] [facility] Basic metabolic panel (02/25/2017 4:00 AM)Only the most recent of2 resultswithin the time period is included. Sodium 138 135 - 148 mEq/L [facility] DEPARTMENT OF PATHOLOGY AND GENOMIC MEDICINE Potassium 4.1 3.5 - 5.0 mEq/L [facility] DEPARTMENT OF PATHOLOGY AND GENOMIC MEDICINE Chloride 93 (L) 98 - 112 mEq/L [facility] DEPARTMENT OF PATHOLOGY AND GENOMIC MEDICINE CO2 31 24 - 31 mEq/L [facility] DEPARTMENT OF PATHOLOGY AND GENOMIC MEDICINE Anion gap 14 7 - 15 mEq/L [facility] DEPARTMENT OF PATHOLOGY Comment: AND [employer] [facility] Starting from September , anion gap calculation no longer incorporates potassium. Please note the change. BUN 32 (H) 8 - 23 mg/dL [facility] DEPARTMENT OF PATHOLOGY AND GENOMIC MEDICINE Creatinine 1.0 (H) 0.5 - 0.9 mg/dL [facility] DEPARTMENT OF PATHOLOGY AND GENOMIC MEDICINE Glucose 87 65 - 99 mg/dL [facility] DEPARTMENT OF PATHOLOGY AND GENOMIC MEDICINE Calcium 9.7 8.8 - 10.2 mg/dL [facility] DEPARTMENT OF PATHOLOGY AND GENOMIC MEDICINE Specimen Plasma specimen Performing Organization Address City/State/Zipcode Phone Number [facility] DEPARTMENT OF PATHOLOGY AND [address] [place] [address] GENOMIC MEDICINE Echocardiogram complete w contrast and 3D if needed (02/24/2017 4:00 PM) Narrative Performed At [facility] Echocardiography Report [address] [facility] [address], [place] [address] Pat.Name:Moon KNOX.ID:[id number] .Date: 02/24/2017 Refer.MD:ZURDO VARGAS MD Exam Time: 3:12:00 PMStudy Type:Routine Echo Height:65inWeight: 106lb BSA: 1.51 m2 DOBAge:1930,86Y Sex: FEMALEBP:118/57 HR:82 bpm Sonogrphr: Vaishali Higgins RDCS, RVT Pat. Stat.:Inpatient Room:[facility] Study Status:Final Echo Event ID:[id number] Order ID:[id number] Reason for Study:Heart Failure History / Clinical:COPD, [...] RAPof 15 mmHg. MEASUREMENTS: 2D Parasternal [place] LVOT 2 cmLA Ds4.9 cm LVIDd4.2 cmIndex2.8 cm/m Ao An2.2 cm LVIDs1.7 cmAo Rtd 2.8 cm Index1.8 cm/m LV%fs 60.9 % LV Cjkn472.7 g(87-129) IVSd 1.1 cmLVM Fosvn946.7 g/m2 LVPWd1.1 cmRWT0.5 LA Sng Plane LA [...] 8170.8 cm/s2 AV AC130 msec (83-118) AV IfHa0757.3 cm/s2 LVOT For Flow LVOT Area3.1 cm2 LVOT SV106.8 ml GNHUszGnq922.3 cm/sHR93.5 bpm CNHHfiDD94.8 mmHgLVOT CO 10 l/min LVOTmnPG 5.7 mmHgLVOT CI6.6 l/m/m2 LVOT TVI34 cm TV Pressure Gradient TV PkVel 322.3 cm/sTV PG 41.6 mmHg Signed 02/24/2017 07:12 PM Memo Ervin M.D. Procedure Note Interface, Radiology Results In - 02/24/2017 7:13 PM CDT Echocardiography Report [address] [place] [address] Pat.Name: LOLITA KNOX Pat.ID: [id number] St.Date: 02/24/2017 Refer.MD: ZURDO VARGAS MD Exam Time: 3:12:00 PM Study Type:Routine Echo Height: 65in Weight: 106lb BSA: 1.51 m2 Age: 2 1930,86Y Sex: FEMALE BP: 118/57 HR: 82 bpm Sonogrphr: Vaishali Higgins RDCS, RVT Pat. Stat.:Inpatient Room: [facility] Study Status:Final Echo Event ID:[id number] Order ID: [id number] Reason for Study:Heart Failure History / Clinical:COPD, [...] of 15 mmHg. MEASUREMENTS: 2D Parasternal [place] LVOT 2 cm LA Ds 4.9 cm [...] Signed 02/24/2017 07:12 PM Memo Ervin M.D. Performing Organization Address [facility] Phone Number [facility] [address] [place] [address] Magnesium level (02/24/2017 4:00 AM) Magnesium 2.3 1.6 - 2.4 mg/dL [facility] DEPARTMENT OF PATHOLOGY AND GENOMIC MEDICINE Specimen Plasma specimen Performing Organization Address [facility] Phone Number [facility] DEPARTMENT OF PATHOLOGY AND [address] [place] [address] GENOMIC MEDICINE Hepatic function panel (02/24/2017 4:00 AM) Albumin 3.7 3.5 - 5.0 g/dL [facility] DEPARTMENT OF PATHOLOGY AND GENOMIC MEDICINE Total bilirubin 0.6 0.0 - 1.2 mg/dL [facility] DEPARTMENT OF PATHOLOGY AND GENOMIC MEDICINE Bilirubin direct <0.2 0.0 - 0.3 mg/dL [facility] DEPARTMENT OF PATHOLOGY AND GENOMIC MEDICINE Alkaline phosphatase 91 35 - 104 U/L [facility] DEPARTMENT OF PATHOLOGY AND GENOMIC MEDICINE Protein 6.6 6.3 - 8.3 g/dL [facility] DEPARTMENT OF Comment: PATHOLOGY AND GENOMIC 4.6-7.0 g/dL MEDICINE 1 week 4.4-7.6 g/dL 7 months-1year5.1-7.3 g/dL 1-2 years5.6-7.5 g/dL >3 years6.0-8.0 g/dL 18-150 6.3-8.3 g/dL ALT 22 5 - 50 U/L [facility] DEPARTMENT OF PATHOLOGY AND GENOMIC MEDICINE AST 25 10 - 35 U/L [facility] DEPARTMENT OF PATHOLOGY AND GENOMIC MEDICINE Specimen Plasma specimen Performing Organization Address [facility] Phone Number [facility] DEPARTMENT OF PATHOLOGY AND [address] [place] [address] [facility] MEDICINE Urinalysis screen and microscopy, with reflex to culture (02/23/2017 5:57 PM) Specimen site Clean catch [facility] DEPARTMENT OF PATHOLOGY AND GENOMIC MEDICINE Color, UA Straw [facility] DEPARTMENT OF PATHOLOGY AND GENOMIC MEDICINE Appearance, UA Clear [facility] DEPARTMENT OF PATHOLOGY AND GENOMIC MEDICINE Specific gravity, UA 1.009 1.001 - 1.035 [facility] DEPARTMENT OF PATHOLOGY AND GENOMIC MEDICINE pH, UA 8.0 5.0 - 8.5 [facility] DEPARTMENT OF PATHOLOGY AND GENOMIC MEDICINE Protein, UA Negative Negative [facility] DEPARTMENT OF PATHOLOGY AND GENOMIC MEDICINE Glucose, UA Negative Negative [facility] DEPARTMENT OF PATHOLOGY AND GENOMIC MEDICINE Ketones, UA Negative Negative [facility] DEPARTMENT OF PATHOLOGY AND GENOMIC MEDICINE Bilirubin, UA Negative Negative [facility] DEPARTMENT OF PATHOLOGY AND GENOMIC MEDICINE Blood, UA Negative Negative [facility] DEPARTMENT OF PATHOLOGY AND GENOMIC MEDICINE Nitrite, UA Negative Negative [facility] DEPARTMENT OF PATHOLOGY AND GENOMIC MEDICINE Urobilinogen, UA <2.0 <2.0 [facility] DEPARTMENT OF PATHOLOGY AND GENOMIC MEDICINE Leukocyte esterase, UA Small (A) Negative [facility] DEPARTMENT OF PATHOLOGY AND GENOMIC MEDICINE Epithelial cells, UA 1 /HPF [facility] DEPARTMENT OF PATHOLOGY AND GENOMIC MEDICINE WBC, UA 4 0 - 4 /HPF [facility] DEPARTMENT OF PATHOLOGY AND GENOMIC MEDICINE RBC, UA 1 0 - 2 /HPF [facility] DEPARTMENT OF PATHOLOGY AND GENOMIC MEDICINE Bacteria, UA Many (A) None seen [facility] DEPARTMENT OF PATHOLOGY AND GENOMIC MEDICINE Yeast, UA None seen [facility] DEPARTMENT OF PATHOLOGY AND GENOMIC MEDICINE Yeast with pseudohyphae, UA None seen [facility] DEPARTMENT OF PATHOLOGY AND GENOMIC MEDICINE Specimen Urine Performing Organization Address City/State/Zipcode Phone Number [facility] DEPARTMENT OF PATHOLOGY AND [address] [place] [address] [facility] MEDICINE Gram stain (02/23/2017 4:43 PM) Gram stain result Rare WBC's [facility] DEPARTMENT OF PATHOLOGY AND Many Gram negative rods [facility] MEDICINE Comment: Specimen Information Specimen Source: Urine Specimen Site: See UA Specimen Urine Performing Organization Address City/[facility]/Zipcode Phone Number [facility] DEPARTMENT OF PATHOLOGY AND [address] [place] [address] [facility] Urine culture (02/23/2017 4:43 PM) Urine culture isolate Klebsiella pneumoniae [facility] DEPARTMENT OF >10-5 cfu/ml PATHOLOGY AND GENOMIC The performance characteristics of this assay on this isolate MEDICINE were validated by the Microbiology Laboratory at [facility].This source has not been approved by the [...] Urine culture isolate Mixed Gram positive davian [facility] DEPARTMENT OF 10-3 cfu/ml PATHOLOGY AND GENOMIC (A) MEDICINE Specimen Urine Organism Antibiotic Method Susceptibility Klebsiella pneumoniae Ampicillin [...] Klebsiella pneumoniae Tigecycline JONN 1 mcg/mL: Susceptible Performing Organization Address City/State/Zipcode Phone Number [facility] DEPARTMENT OF PATHOLOGY AND [address] [place] [address] [facility] MEDICINE Troponin (02/23/2017 4:09 PM) Troponin <0.30 0.00 - 0.30 ng/mL [facility] DEPARTMENT OF PATHOLOGY Comment: AND GENOMIC MEDICINE 0.30 - 1.49 ng/mlMay indicate increased risk of acute coronary syndrome. >=1.5 ng/mlConsistent with acute myocardial infarction. The diagnostic value of a single normal or non-diagnostic result is questionable.Serial samples at 2-6 hour intervals are required to rule out acute myocardial injury. Specimen Plasma specimen Performing Organization Address City/State/Zipcode Phone Number [facility] DEPARTMENT OF PATHOLOGY AND [address] [place] [address] GENOMIC MEDICINE ECG ED Preliminary Interpretation - NOT AN ORDER (02/23/2017 2:27 PM) Narrative Performed At Dahiana Brower MD 02/23/20172:27 PM ECG ED Preliminary Interpretation - Not an Order Performed by: DAHIANA BROWER Authorized by: DAHIANA BROWER ECG reviewed by ED Physician in the absence of a lining folder: yes Previous ECG: Previous ECG:Unavailable Interpretation: Interpretation: abnormal Rate: ECG rate:78 ECG rate assessment: normal Rhythm: Rhythm: atrial fibrillation Ectopy: Ectopy: none QRS: QRS axis:Normal Conduction: Conduction: normal ST segments: ST segments:Normal T waves: T waves: normal Other findings: Other findings: LVH XR Chest 2 Vw (02/23/2017 12:47 PM) Narrative Performed At Examination:XR CHEST 2 VW [facility] Clinical History: SHORTNESS OF BREATH Comparison: January [...] lumbar vertebral body. Aorta is markedly calcified. [facility]-[id number] Procedure Note Hm Interface, Radiology Results Incoming - 02/23/2017 12:58 PM [...] lumbar vertebral body. Aorta is markedly calcified. [facility]-[id number] Performing Organization Address City/State/Zipcode Phone Number [facility] [address] [place] [address] Troponin, I-Stat (02/23/2017 12:30 PM) Troponin, I-Stat 0.00 0.00 - 0.08 ng/mL DEPARTMENT OF Comment: PATHOLOGY AND GENOMIC 0.09 - 1.49 ng/mlMay indicate increased risk of acute [facility] coronary syndrome. [facility] >=1.5 ng/mlConsistent with acute myocardial infarction. The diagnostic value of a single normal or non-diagnostic result is questionable.Serial samples at 2-6 hour intervals are required to rule out acute myocardial injury. Specimen Plasma specimen Performing Organization Address City/State/Zipcode Phone Number DEPARTMENT OF PATHOLOGY AND [address] [place] [address] B natriuretic pep, I-Stat (02/23/2017 12:30 PM) BNP, I-Stat 587 (H) 0 - 100 pg/mL [facility] Specimen Blood Performing Organization Address City/State/Zipcode Phone Number DEPARTMENT OF PATHOLOGY AND [address] [place] [address] Comprehensive metabolic panel (02/23/2017 12:30 PM) Sodium 137 128 - 145 mEq/L [facility] Potassium 4.7 3.6 - 5.1 mEq/L [facility] CO2 35 (H) 18 - 33 mEq/L [facility] Chloride 96 (L) 98 - 108 mEq/L [facility] Glucose 95 73 - 118 mg/dL [facility] Calcium 9.5 8.0 - 10.3 mg/dL [facility] BUN 24 (H) 7 - 22 mg/dL [facility] Creatinine 1.1 0.6 - 1.2 mg/dL [facility] Alkaline phosphatase 80 42 - 141 U/L [facility] ALT 24 10 - 47 U/L [facility] AST 29 11 - 38 U/L [facility]OLOG[facility] Total bilirubin 0.9 0.2 - 1.6 mg/dL [facility] Albumin 4.3 3.3 - 5.5 g/dL [facility] Protein 6.9 6.4 - 8.1 g/dL [facility] Anion gap 6 (L) 7 - 15 mEq/L DEPARTMENT OF Comment: PATHOLOGY AND GENOMIC Starting from September , anion gap calculation [facility] no longer incorporates potassium. Please note the change. [facility] A/G ratio 1.7 0.7 - 3.8 [facility]OLOGY [facility] Specimen Plasma specimen Performing Organization Address City/State/Zipcode Phone Number DEPARTMENT OF PATHOLOGY AND [address] [place] [address] [facility] ECG 12 lead (02/23/2017 12:21 PM) Ventricular rate 78 [facility] MUSE Atrial rate 91 [facility] MUSE QRSD interval 98 [facility] MUSE QT interval 386 [facility] MUSE QTC interval 440 [facility] MUSE QRS axis 1 -44 [facility] MUSE T wave axis 52 [facility] MUSE EKG impression Atrial fibrillation-Left axis deviation-Moderate voltage criteria for LVH, may be normal variant-Abnormal ECG-In automated comparison with ECG of 01-FEB-2013 19:14,-Atrial fibrillation has replaced Sinu [facility] MUSE s rhythm- Performing Organization Address City/State/Zipcode Phone Number [facility] MUSE [address] [place] [address] after 11/26/2016 Insurance Payer Benefit Plan / Group Subscriber ID Type Phone Address MEDICARE MEDICARE PART A AND B xxxxxxxxxx Medicare [place], [place] AETNA AETNA PPO OPEN CHOICE xxxxxxxxx PPO Home: [phone] [phone] [address]
--- NOTE | 2017-11-27 10:21 | EDPHYS ---
Physician Documentation [facility] Name: Jo Christopher Age: 87 yrs Sex: Female : 1930 Arrival Date: 11/27/2017 Time: 09:37 Bed 8 Private MD: Out, [facility] ED Physician Cristo Mckinnon HPI: 11/27 10:40 This 87 yrs old Female presents to ER via Ambulatory with complaints of Leg jr8 Injury. 10:40 The complaints affect the right hill. Onset: The symptoms/episode began/occurred jr8 acutely, yesterday. The patient has not experienced similar symptoms in the past. The patient has not recently seen a physician. Patient stated that she thought she saw a bug on her right leg and had flicked it. Stated that it ended up not being a bug. Noticed later on started wit have blood blister come up that has grown since last night. Patient on NOAC . Historical: - Allergies: 09:54 No Known Allergies; ss - Home Meds: 09:54 Eliquis 2.5 mg Oral tab 1 tab 2 times per day [Active]; spironolactone 25 mg Oral tab 1 ss tab once daily [Active]; montelukast 10 mg Oral tab 1 tab once daily [Active]; gabapentin 100 mg Oral cap 100mg at breakfast, 200mg at noon, 200mg at dinner and 1500mg at bedtime [Active]; carvedilol 25 mg Oral tab 1 tab 2 times per day [Active]; furosemide 40 mg Oral tab 1 tab 3 times per day [Active]; amlodipine 10 mg tab 1 tab once daily [Active]; levocetirizine 5 mg Oral tab 1 tab once daily [Active]; omeprazole 40 mg Oral cpDR 1 cap once daily [Active]; ipratropium-albuterol 0.5 mg-3 mg(2.5 mg base)/3 mL Inhl nebu 3 mL 4 times per day [Active]; levothyroxine 37.5 tab 1 tab once daily [Active]; - PMHx: 09:54 Aortic Stenosis; Atrial Fib; CHF; CLL; COPD; Hypertension; Hypothyroidism; mitral valve ss prolapse; neuropathy; - Immunization history:: Adult Immunizations up to date, Adult Immunizations up to date. - Social history:: Smoking status: Patient/guardian denies using tobacco, Smoking status: Patient/guardian denies using tobacco. - Ebola Screening: : No symptoms or risks identified at this time Patient denies exposure to infectious person Patient denies travel to an Ebola-affected area in the 21 days before illness onset. ROS: 10:40 Eyes: Negative for injury, pain, redness, and discharge, ENT: Negative for injury, jr8 pain, and discharge, Neck: Negative for injury, pain, and swelling, Cardiovascular: Negative for chest pain, palpitations, and edema, Respiratory: Negative for shortness of breath, cough, wheezing, and pleuritic chest pain, Abdomen/GI: Negative for abdominal pain, nausea, vomiting, diarrhea, and constipation, Back: Negative for injury and pain, MS/Extremity: Negative for injury and deformity, Neuro: Negative for headache, weakness, numbness, tingling, and seizure. Exam: 10:40 Cardiovascular: Regular rate and rhythm with a normal S1 and S2. No gallops, murmurs, jr8 or rubs. Normal PMI, no JVD. No pulse deficits. Respiratory: Lungs have equal breath sounds bilaterally, clear to auscultation and percussion. No rales, rhonchi or wheezes noted. No increased work of breathing, no retractions or nasal flaring. MS/ Extremity: Pulses equal, no cyanosis. Neurovascular intact. Full, normal range of motion. Neuro: Awake and alert, GCS 15, oriented to person, place, time, and situation. Cranial nerves II-XII grossly intact. Motor strength 5/5 in all extremities. Sensory grossly intact. Cerebellar exam normal. Normal gait. 10:40 Skin: Patient has approximately 3 cm by 5 cm blood blister to right hill. No other trauma noted . Vital Signs: 09:54 BP 126 / 66; Pulse 84; Resp 18; Temp 97.7(O); Pulse Ox 95% ; Weight 51.71 kg; Height 5 ss ft. 6 in. (167.64 cm); Pain 0/10; 09:54 Body Mass Index 18.40 (51.71 kg, 167.64 cm) ss Procedures: 10:40 Performed I \T\ D of blood blister. Patient was dress and cleaned in sterile fashion with jr8 betadine. #11 blade used to unsheathe blister and remove coagulated blood. No active bleeding after leg was debrided and cleaned. Pressure dressing applied with TOA . MDM: 09:48 Patient medically screened. [facility] 10:18 Data reviewed: vital signs, nurses notes, and as a result, I will discharge patient. jr8 Data interpreted: Pulse oximetry: on room air is 95 %. Interpretation: normal. Counseling: I had a detailed discussion with the patient and/or guardian regarding: the historical points, exam findings, and any diagnostic results supporting the discharge/admit diagnosis, the need for outpatient follow up, a family practitioner, to return to the emergency department if symptoms worsen or persist or if there are any questions or concerns that arise at home. Administered Medications: No medications were administered Disposition: 16:18 Co-signature as Attending Physician, Cristo Mckinnon MD I agree with the assessment and [facility] plan of care. Disposition: 11/27/17 10:20 Discharged to Home. Impression: Blister (nonthermal) of lower leg - Hemorrhagic Blister. - Condition is Stable. - Discharge Instructions: Blister. - Medication Reconciliation Form, Thank You Letter, Antibiotic Education, Prescription Opioid Use form. - Follow up: Private Physician; When: 2 - 3 days; Reason: Recheck today's complaints, Continuance of care, Re-evaluation by your physician. - Problem is new. - Symptoms have improved. Signatures: Cami Sagastume RN RN sv Anderson, Corey, MD MD cha Smirch, Shelby, RN RN ss Roszak, Josh, PA PA jr8 Corrections: (The following items were deleted from the chart) 10:32 10:20 11/27/2017 10:20 Discharged to Home. Impression: Blister (nonthermal) of lower sv leg - Hemorrhagic Blister. Condition is Stable. Forms are Medication Reconciliation Form, Thank You Letter, Antibiotic Education, Prescription Opioid Use. Follow up: Private Physician; When: 2 - 3 days; Reason: Recheck today's complaints, Continuance of care, Re-evaluation by your physician. Problem is new. Symptoms have improved. jr8
--- NOTE | 2017-11-27 10:21 | ER ---
Nurse's Notes [facility] Emergency Department Name: Jo Christopher Age: 87 yrs Sex: Female : 1930 Arrival Date: 11/27/2017 Time: 09:37 Bed 8 Private MD: Out, [facility] Diagnosis: Blister (nonthermal) of lower leg-Hemorrhagic Blister Presentation: 11/27 09:49 Presenting complaint: Patient states: blood blister noted to R hill that reportedly ss began yesterday. Pt denies injury and states that it started out as a dime sized spot, and today has gotten worse. Transition of care: patient was not received from another setting of care. Onset of symptoms was November 26, 2017. Risk Assessment: Do you want to hurt yourself or someone else? Patient reports no desire to harm self or others. Initial Sepsis Screen: Does the patient meet any 2 criteria? No. Patient's initial sepsis screen is negative. Does the patient have a suspected source of infection? No. Patient's initial sepsis screen is negative. Care prior to arrival: None. 09:49 Method Of Arrival: Ambulatory ss 09:49 Acuity: ANTHONY 4 ss Historical: - Allergies: 09:54 No Known Allergies; ss - Home Meds: 09:54 Eliquis 2.5 mg Oral tab 1 tab 2 times per day [Active]; spironolactone 25 mg Oral tab 1 ss tab once daily [Active]; montelukast 10 mg Oral tab 1 tab once daily [Active]; gabapentin 100 mg Oral cap 100mg at breakfast, 200mg at noon, 200mg at dinner and 1500mg at bedtime [Active]; carvedilol 25 mg Oral tab 1 tab 2 times per day [Active]; furosemide 40 mg Oral tab 1 tab 3 times per day [Active]; amlodipine 10 mg tab 1 tab once daily [Active]; levocetirizine 5 mg Oral tab 1 tab once daily [Active]; omeprazole 40 mg Oral cpDR 1 cap once daily [Active]; ipratropium-albuterol 0.5 mg-3 mg(2.5 mg base)/3 mL Inhl nebu 3 mL 4 times per day [Active]; levothyroxine 37.5 tab 1 tab once daily [Active]; - PMHx: 09:54 Aortic Stenosis; Atrial Fib; CHF; CLL; COPD; Hypertension; Hypothyroidism; mitral valve ss prolapse; neuropathy; - Immunization history:: Adult Immunizations up to date, Adult Immunizations up to date. - Social history:: Smoking status: Patient/guardian denies using tobacco, Smoking status: Patient/guardian denies using tobacco. - Ebola Screening: : No symptoms or risks identified at this time Patient denies exposure to infectious person Patient denies travel to an Ebola-affected area in the 21 days before illness onset. Screenin:51 Abuse screen: Denies threats or abuse. Denies injuries from another. Nutritional sv screening: No deficits noted. Tuberculosis screening: No symptoms or risk factors identified. Fall Risk None identified. Assessment: 09:49 General: Appears in no apparent distress. comfortable, slender, Behavior is calm, sv cooperative, appropriate for age. Pain: Denies pain. Neuro: Level of Consciousness is awake, alert, obeys commands, Oriented to person, place, time, situation, Moves all extremities. Full function Gait is steady. Respiratory: Respiratory effort is even, unlabored, Respiratory pattern is regular, symmetrical. Derm: Skin is normal, blood blister noted to anterior RLE. Musculoskeletal: Range of motion: intact in all extremities. 10:31 Reassessment: Patient appears in no apparent distress at this time. Patient and/or sv family updated on plan of care and expected duration. Pain level reassessed. Patient is alert, oriented x 3, equal unlabored respirations, skin warm/dry/pink. Patient states feeling better. Patient states symptoms have improved. Vital Signs: 09:54 BP 126 / 66; Pulse 84; Resp 18; Temp 97.7(O); Pulse Ox 95% ; Weight 51.71 kg; Height 5 ss ft. 6 in. (167.64 cm); Pain 0/10; 09:54 Body Mass Index 18.40 (51.71 kg, 167.64 cm) ED Course: 09:37 Patient arrived in ED. sb2 09:37 Out, of Town is Private Physician. sb2 09:46 [facility] jr8 09:46 Cristo Mckinnon MD is Attending Physician. jr8 09:49 Cami Sagastume RN is Primary Nurse. sv 09:51 Triage completed. ss 09:51 Awaiting ED provider evaluation. sv 09:51 Patient has correct armband on for positive identification. Bed in low position. Call sv light in reach. Side rails up X2. Adult w/ patient. Pulse ox on. NIBP on. Door closed. Head of bed elevated. 09:52 Arm band placed on right wrist. sv 10:10 Assist provider with I \T\ D: of an abscess on right anterior calf Set up I\T\D tray. sv Performed by Benoit BEAL Dressing with Neosporin and non-adherent dressing and kerlix. Patient did not have IV access during this emergency room visit. 10:20 Alex wrap to RLE, done by Benoit BEAL. sv Administered Medications: No medications were administered Outcome: 10:20 Discharge ordered by MD. reyes 10:31 Discharged to home via wheelchair, with family. sv 10:31 Condition: stable 10:31 Discharge instructions given to patient, Instructed on discharge instructions, follow up and referral plans. Demonstrated understanding of instructions, follow-up care. 10:32 Patient left the ED. sv Signatures: Cami Sagsatume, RN RN Tg Jensen RN RN Benoit Henriquez PA PA jr8 Billeau, Sheri sb2
[2017-11-27 10:37] VITALS: BP 126/66; TEMP 97.7; O2SAT 95
== END 2017-11-27 10:32 | disposition home or self-care (01) ==
LOC: ER 09:32
DX: S80.821A Blister (nonthermal), right lower leg, initial encounter (principal); X58.XXXA Exposure to other specified factors, initial encounter; Y92.019 Unspecified place in single-family (private) house as the place of occurrence of the external cause; I10 Essential (primary) hypertension
CPT/HCPCS: 99284

== ENCOUNTER 2017-12-02 11:19 | Inpatient (IN) | payer OTHER ==
--- OUTSIDE RECORDS SUMMARY | 2017-12-02 11:22 | XMS REPORT | Clinical Summary ---
:1930 Author Organization [facility] Address [address] [place] [address] Care Team Providers Name Role Phone Negro [...] congestive heart failure type (Primary Dx) after 12/01/2016 Immunizations Name Dates Previously Given Next Due [...] are in SPECTRAL COLOR DOPPLER the results (05515) section. HC COMPLETE BLD COUNT Routine 02/24/2017 [...] procedure are in the results section. after 12/01/2016 Results CBC with platelet and differential (02/25/2017 5:30 AM)Only the most recent of3 resultswithin the time period is included. WBC 6.20 4.50 - 11.00 k/uL [facility] DEPARTMENT OF PATHOLOGY AND GENOMIC MEDICINE RBC 4.25 4.20 - 5.50 m/uL [facility] DEPARTMENT OF PATHOLOGY AND GENOMIC MEDICINE HGB 12.6 12.0 - 16.0 g/dL [facility] DEPARTMENT OF PATHOLOGY AND GENOMIC MEDICINE HCT 38.7 37.0 - 47.0 % [facility] DEPARTMENT OF PATHOLOGY AND GENOMIC MEDICINE MCV 91.1 82.0 - 100.[address] [facility] DEPARTMENT OF PATHOLOGY AND GENOMIC MEDICINE MCH 29.6 27.0 - 34.[address] [facility] DEPARTMENT OF PATHOLOGY AND GENOMIC MEDICINE MCHC 32.6 31.0 - 37.0 g/dL [facility] DEPARTMENT OF PATHOLOGY AND GENOMIC MEDICINE RDW - SD 45.2 37.0 - 55.[address] [facility] DEPARTMENT OF PATHOLOGY AND GENOMIC MEDICINE MPV 10.1 8.8 - 13.[address] [facility] DEPARTMENT OF PATHOLOGY AND GENOMIC MEDICINE Platelet count 190 150 - 400 k/uL [facility] DEPARTMENT OF PATHOLOGY AND GENOMIC MEDICINE Nucleated RBC 0.00 /[address] [facility] DEPARTMENT OF PATHOLOGY AND GENOMIC MEDICINE Neutrophils 57.4 39.0 - 69.0 % [facility] DEPARTMENT OF PATHOLOGY AND GENOMIC MEDICINE Lymphocytes 24.8 (L) 25.0 - 45.0 % [facility] DEPARTMENT OF PATHOLOGY AND GENOMIC MEDICINE Monocytes 13.1 (H) 0.0 - 10.0 % [facility] DEPARTMENT OF PATHOLOGY AND GENOMIC MEDICINE Eosinophils 3.7 0.0 - 5.0 % [facility] DEPARTMENT OF PATHOLOGY AND GENOMIC MEDICINE Basophils 0.8 0.0 - 1.0 % [facility] DEPARTMENT OF PATHOLOGY AND GENOMIC MEDICINE Immature granulocytes 0.2Comment: 0.0 - 1.0 % [facility] DEPARTMENT OF "Immature PATHOLOGY AND GENOMIC granulocytes" MEDICINE (promyelocytes, myelocytes, metamyelocytes) Specimen Blood Performing Organization Address City/[facility] Phone Number [facility] DEPARTMENT OF PATHOLOGY AND [address] [place] [address] EBIQUOUS MEDICINE Estimated GFR (02/25/2017 4:00 AM)Only the most recent of3 resultswithin the time period is included. GFR Non Af Amer 52 (A) mL/min/1.[address] [facility] DEPARTMENT OF PATHOLOGY AND GENOMIC MEDICINE GFR Af Amer 63 mL/min/1.[address] [facility] DEPARTMENT OF Comment: PATHOLOGY AND GENOMIC [...] Americans. Specimen Plasma specimen Performing Organization Address City/[facility] Hospitalcode Phone Number [facility] DEPARTMENT OF PATHOLOGY AND [address] [place] [address] [facility] Basic metabolic panel (02/25/2017 4:00 AM)Only the most recent of2 resultswithin the time period is included. Sodium 138 135 - 148 mEq/L [facility] DEPARTMENT OF PATHOLOGY AND GENOMIC MEDICINE Potassium 4.1 3.5 - 5.0 mEq/L [facility] DEPARTMENT OF PATHOLOGY AND GENOMIC MEDICINE Chloride 93 (L) 98 - 112 mEq/L [facility] DEPARTMENT OF PATHOLOGY AND GENOMIC MEDICINE CO2 31 24 - 31 mEq/L [facility] DEPARTMENT OF PATHOLOGY AND GENOMIC MEDICINE Anion gap 14 7 - 15 mEq/L [facility] DEPARTMENT OF PATHOLOGY Comment: AND EBIQUOUS [facility] Starting from September , anion gap calculation no longer incorporates potassium. Please note the change. BUN 32 (H) 8 - 23 mg/dL [facility] DEPARTMENT OF PATHOLOGY AND GENOMIC MEDICINE Creatinine 1.0 (H) 0.5 - 0.9 mg/dL [facility] DEPARTMENT OF PATHOLOGY AND GENOMIC MEDICINE Glucose 87 65 - 99 mg/dL [facility] DEPARTMENT OF PATHOLOGY AND GENOMIC MEDICINE Calcium 9.7 8.8 - 10.2 mg/dL [facility] DEPARTMENT OF PATHOLOGY AND GENOMIC MEDICINE Specimen Plasma specimen Performing Organization Address City/State/Zipcode Phone Number [facility] DEPARTMENT OF PATHOLOGY AND [address] [place] [address] GENOMIC MEDICINE Echocardiogram complete w contrast and 3D if needed (02/24/2017 4:00 PM) Narrative Performed At [facility] Echocardiography Report [address] [facility] [address], [place] [address] Pat.Name:Moon KNOX.ID:[id number] .Date: 02/24/2017 Refer.MD:ZURDO VARGAS MD Exam Time: 3:12:00 PMStudy Type:Routine Echo Height:65inWeight: 106lb BSA: 1.51 m2 DOBAge:1930,86Y Sex: FEMALEBP:118/57 HR:82 bpm Sonogrphr: Vaishali Higgins RDCS, RVT Pat. Stat.:Inpatient Room:[facility] Study Status:Final Echo Event ID:[id number] Order ID:[id number] Reason for Study:Heart Failure History / Clinical:COPD, [...] RAPof 15 mmHg. MEASUREMENTS: 2D Parasternal Long [place] LVOT 2 cmLA Ds4.9 cm LVIDd4.2 cmIndex2.8 cm/m Ao An2.2 cm LVIDs1.7 cmAo Rtd 2.8 cm Index1.8 cm/m LV%fs 60.9 % LV Unaf012.7 g(87-129) IVSd 1.1 cmLVM Vzsvc932.7 g/m2 LVPWd1.1 cmRWT0.5 LA Sng Plane LA Area 31.5 cm2(8.8-23.4) LA Vol 118.9 ml Index78.7 ml/m LA LngAx 6.9 cm RA Sng Plane RA Area 21.6 cm2(8.3-19.5) RA Vol62.4 ml Index41.3 ml/m RA LngAx 6.1 cm DOPPLER AV For Flow/KHOA AV pkVel 469.7 cm/s (100-170) AV ET325 msec AV mnVel 310.6 cm/Rye AC/ET 0.4 AV pkPG 88.3 mmHgAV TVI 100.9 cm AV Mean G 48 mmHgAVpkAcRt 8170.8 cm/s2 AV AC130 msec (83-118) AV OtYo2488.3 cm/s2 LVOT For Flow LVOT Area3.1 cm2 LVOT SV106.8 ml EFRZqoSnj308.3 cm/sHR93.5 bpm PFAMnuTM81.8 mmHgLVOT CO 10 l/min LVOTmnPG 5.7 mmHgLVOT CI6.6 l/m/m2 LVOT TVI34 cm TV Pressure Gradient TV PkVel 322.3 cm/sTV PG 41.6 mmHg Signed 02/24/2017 07:12 PM Memo Ervin M.D. Procedure Note Interface, Radiology Results In - 02/24/2017 7:13 PM CDT Echocardiography Report [address] [place] [address] Pat.Name: LOLITA KNOX Pat.ID: [id number] St.Date: 02/24/2017 Refer.MD: ZURDO VARGAS MD Exam Time: 3:12:00 PM Study Type:Routine Echo Height: 65in Weight: 106lb BSA: 1.51 m2 Age: 2 1930,86Y Sex: FEMALE BP: 118/57 HR: 82 bpm Sonogrphr: Vaishali Higgins RDCS, RVT Pat. Stat.:Inpatient Room: [facility] Study Status:Final Echo Event ID:[id number] Order ID: [id number] Reason for Study:Heart Failure History / Clinical:COPD, [...] of 15 mmHg. MEASUREMENTS: 2D Parasternal Long [place] LVOT 2 cm LA Ds 4.9 cm [...] PM Memo Ervin M.D. Performing Organization Address [facility] Phone Number [facility] [address] [place] [address] Magnesium level (02/24/2017 4:00 AM) Magnesium 2.3 1.6 - 2.4 mg/dL [facility] DEPARTMENT OF PATHOLOGY AND GENOMIC MEDICINE Specimen Plasma specimen Performing Organization Address [facility] Phone Number [facility] DEPARTMENT OF PATHOLOGY AND [address] [place] [id number] GENOMIC MEDICINE Hepatic function panel (02/24/2017 4:00 AM) Albumin 3.7 3.5 - 5.0 g/dL [facility] DEPARTMENT OF PATHOLOGY AND GENOMIC MEDICINE Total bilirubin 0.6 0.0 - 1.2 mg/dL [facility] DEPARTMENT OF PATHOLOGY AND GENOMIC MEDICINE Bilirubin direct <0.2 0.0 - 0.3 mg/dL [facility] DEPARTMENT OF PATHOLOGY AND GENOMIC MEDICINE Alkaline phosphatase 91 35 - 104 U/L [facility] DEPARTMENT OF PATHOLOGY AND GENOMIC MEDICINE Protein 6.6 6.3 - 8.3 g/dL [facility] DEPARTMENT OF Comment: PATHOLOGY AND GENOMIC 4.6-7.0 g/dL MEDICINE 1 week 4.4-7.6 g/dL 7 months-1year5.1-7.3 g/dL 1-2 years5.6-7.5 g/dL >3 years6.0-8.0 g/dL 18-150 6.3-8.3 g/dL ALT 22 5 - 50 U/L [facility] DEPARTMENT OF PATHOLOGY AND GENOMIC MEDICINE AST 25 10 - 35 U/L [facility] DEPARTMENT OF PATHOLOGY AND GENOMIC MEDICINE Specimen Plasma specimen Performing Organization Address [facility] Phone Number [facility] DEPARTMENT OF PATHOLOGY AND [address] [place] [id number] [facility] MEDICINE Urinalysis screen and microscopy, with reflex to culture (02/23/2017 5:57 PM) Specimen site Clean catch [facility] DEPARTMENT OF PATHOLOGY AND GENOMIC MEDICINE Color, UA Straw [facility] DEPARTMENT OF PATHOLOGY AND GENOMIC MEDICINE Appearance, UA Clear [facility] DEPARTMENT OF PATHOLOGY AND GENOMIC MEDICINE Specific gravity, UA 1.009 1.001 - 1.035 [facility] DEPARTMENT OF PATHOLOGY AND GENOMIC MEDICINE pH, UA 8.0 5.0 - 8.5 [facility] DEPARTMENT OF PATHOLOGY AND GENOMIC MEDICINE Protein, UA Negative Negative [facility] DEPARTMENT OF PATHOLOGY AND GENOMIC MEDICINE Glucose, UA Negative Negative [facility] DEPARTMENT OF PATHOLOGY AND GENOMIC MEDICINE Ketones, UA Negative Negative [facility] DEPARTMENT OF PATHOLOGY AND GENOMIC MEDICINE Bilirubin, UA Negative Negative [facility] DEPARTMENT OF PATHOLOGY AND GENOMIC MEDICINE Blood, UA Negative Negative [facility] DEPARTMENT OF PATHOLOGY AND GENOMIC MEDICINE Nitrite, UA Negative Negative [facility] DEPARTMENT OF PATHOLOGY AND GENOMIC MEDICINE Urobilinogen, UA <2.0 <[address].0 [facility] DEPARTMENT OF PATHOLOGY AND GENOMIC MEDICINE Leukocyte esterase, UA Small (A) Negative [facility] DEPARTMENT OF PATHOLOGY AND GENOMIC MEDICINE Epithelial cells, UA 1 /HPF [facility] DEPARTMENT OF PATHOLOGY AND GENOMIC MEDICINE WBC, UA 4 0 - 4 /HPF [facility] DEPARTMENT OF PATHOLOGY AND GENOMIC MEDICINE RBC, UA 1 0 - 2 /HPF [facility] DEPARTMENT OF PATHOLOGY AND GENOMIC MEDICINE Bacteria, UA Many (A) None seen [facility] DEPARTMENT OF PATHOLOGY AND GENOMIC MEDICINE Yeast, UA None seen [facility] DEPARTMENT OF PATHOLOGY AND GENOMIC MEDICINE Yeast with pseudohyphae, UA None seen [facility] DEPARTMENT OF PATHOLOGY AND GENOMIC MEDICINE Specimen Urine Performing Organization Address City/State/Zipcode Phone Number [facility] DEPARTMENT OF PATHOLOGY AND [address] [place] [address] [facility] Gram stain (02/23/2017 4:43 PM) Gram stain result Rare WBC's [facility] DEPARTMENT OF PATHOLOGY AND Many Gram negative rods [facility] Comment: Specimen Information Specimen Source: Urine Specimen Site: See UA Specimen Urine Performing Organization Address City/[facility]/Zipcode Phone Number [facility] DEPARTMENT OF PATHOLOGY AND [address] [place] [id number] [facility] Urine culture (02/23/2017 4:43 PM) Urine culture isolate Klebsiella pneumoniae [facility] DEPARTMENT OF >10-5 cfu/ml PATHOLOGY AND GENOMIC The performance characteristics of this assay on this isolate MEDICINE were validated by the Microbiology Laboratory at [facility].This source has not been approved by the [...] Urine culture isolate Mixed Gram positive davian [facility] DEPARTMENT OF 10-3 cfu/ml PATHOLOGY AND [...] Susceptible Performing Organization Address City/State/Zipcode Phone Number [facility] DEPARTMENT OF PATHOLOGY AND [address] [place] [address] [facility] Troponin (02/23/2017 4:09 PM) Troponin <0.30 0.00 - 0.30 ng/mL [facility] DEPARTMENT OF PATHOLOGY Comment: AND GENOMIC MEDICINE 0.30 - 1.49 ng/mlMay indicate increased risk of acute coronary syndrome. >=1.5 ng/mlConsistent with acute myocardial infarction. The diagnostic value of a single normal or non-diagnostic result is questionable.Serial samples at 2-6 hour intervals are required to rule out acute myocardial injury. Specimen Plasma specimen Performing Organization Address City/State/Zipcode Phone Number [facility] DEPARTMENT OF PATHOLOGY AND [address] [place] [address] GENOMIC MEDICINE ECG ED Preliminary Interpretation - NOT AN ORDER (02/23/2017 2:27 PM) Narrative Performed At Dahiana Brower MD 02/23/20172:27 PM ECG ED Preliminary Interpretation - Not an Order Performed by: DAHIANA BROWER Authorized by: DAHIANA BROWER ECG reviewed by ED Physician in the absence of a finance broker: yes Previous ECG: Previous ECG:Unavailable Interpretation: Interpretation: [...] lumbar vertebral body. Aorta is markedly calcified. [facility]-[id number] Procedure Note Hm Interface, Radiology Results Incoming [...] lumbar vertebral body. Aorta is markedly calcified. [facility]-[id number] Performing Organization Address City/State/Zipcode Phone Number [facility] [address] [place] [address] Troponin, I-Stat (02/23/2017 12:30 PM) Troponin, I-Stat 0.00 0.00 - 0.08 ng/mL DEPARTMENT OF Comment: PATHOLOGY AND GENOMIC 0.09 - 1.49 ng/mlMay indicate increased risk of acute [facility] coronary syndrome. [facility] >=1.5 ng/mlConsistent with acute myocardial infarction. The diagnostic value of a single normal or non-diagnostic result is questionable.Serial samples at 2-6 hour intervals are required to rule out acute myocardial injury. Specimen Plasma specimen Performing Organization Address City/State/Zipcode Phone Number DEPARTMENT OF PATHOLOGY AND [address] [place] [address] B natriuretic pep, I-Stat (02/23/2017 12:30 PM) BNP, I-Stat 587 (H) 0 - 100 pg/mL [facility] Specimen Blood Performing Organization Address City/State/Zipcode Phone Number DEPARTMENT OF PATHOLOGY AND [address] [place] [address] Comprehensive metabolic panel (02/23/2017 12:30 PM) Sodium 137 128 - 145 mEq/L [facility] Potassium 4.7 3.6 - 5.1 mEq/L [facility] CO2 35 (H) 18 - 33 mEq/L [facility] Chloride 96 (L) 98 - 108 mEq/L [facility] Glucose 95 73 - 118 mg/dL [facility] Calcium 9.5 8.0 - 10.3 mg/dL [facility] BUN 24 (H) 7 - 22 mg/dL [facility] Creatinine 1.1 0.6 - 1.2 mg/dL [facility] Alkaline phosphatase 80 42 - 141 U/L [facility] ALT 24 10 - 47 U/L [facility] AST 29 11 - 38 U/L [facility] Total bilirubin 0.9 0.2 - 1.6 mg/dL [facility] Albumin 4.3 3.3 - 5.5 g/dL [facility] Protein 6.9 6.4 - 8.1 g/dL [facility] Anion gap 6 (L) 7 - 15 mEq/L DEPARTMENT OF Comment: PATHOLOGY AND GENOMIC Starting from September , anion gap calculation [facility] no longer incorporates potassium. Please note the change. [facility] A/G ratio 1.7 0.7 - 3.8 [facility] Specimen Plasma specimen Performing Organization Address City/State/Zipcode Phone Number DEPARTMENT OF PATHOLOGY AND [address] [place] [address] [facility] ECG 12 lead (02/23/2017 12:21 PM) Ventricular rate 78 [facility] Atrial rate 91 [facility] QRSD interval 98 [facility] QT interval 386 [facility] QTC interval [facility] QRS axis 1 -44 [facility] T wave axis 52 [facility] EKG impression Atrial fibrillation-Left axis deviation-Moderate voltage criteria for LVH, may be normal variant-Abnormal ECG-In automated comparison with ECG of 01-FEB-2013 19:14,-Atrial fibrillation has replaced Sinu [facility] s rhythm- Performing Organization Address City/State/Zipcode Phone Number [facility] [address] [place] [address] after 12/01/2016 Insurance Payer Benefit Plan / Group Subscriber ID Type Phone Address MEDICARE MEDICARE PART A AND B xxxxxxxxxx Medicare [place], [place] [employer]ET[employer] A[employer] PPO OPEN CHOICE xxxxxxxxx PPO Home: [phone] [phone] [address]
[2017-12-02 12:44] LABS: Absolute Lymphocytes (CBC) 1.1 K/uL (0.7-4.9); Absolute Monocytes 0.9 K/uL (0.1-1.3); Absolute Neutrophil 5.2 K/uL (1.8-8.0); Basophils % 0.4 % (0-1.3); Eosinophils % 0.9 % (0-4.4); Hematocrit 38.2 % (36.0-45.0); Lymphocytes % 14.7 % (15.3-44.8); MCH 30.4 pg (27.0-35.0); MCV 92.4 fL (80-100); MPV 8.8 fL (7.6-11.3); RBC Red Blood Cell Count 4.14 M/uL (3.86-4.86)
[2017-12-02 13:05] LABS: Bilirubin Total 0.7 mg/dL (0.2-1.0); Potassium 4.6 mmol/L (3.5-5.1); Protein, Total 7.4 g/dL (6.4-8.2)
[2017-12-02] MEDS ORDERED: VANCOMYCIN/NS 1 gm 1 GM/250 ML BAG IV ONE (14:45)
--- NOTE | 2017-12-02 14:55 | EDPHYS ---
Physician Documentation [facility] Name: Jo Christopher Age: 87 yrs Sex: Female : 1930 Arrival Date: 12/02/2017 Time: 11:22 Bed 25 Private MD: Out, [facility] ED Physician Shelton Choi HPI: 12/02 12:21 This 87 yrs old Female presents to ER via Ambulatory with complaints of Leg jmm Pain - INFECTION. 12:21 The patient presents with swelling, tenderness. The complaints affect the right hill. jmm Onset: The symptoms/episode began/occurred gradually, 6 day(s) ago. Modifying factors: The symptoms are alleviated by elevating leg, the symptoms are aggravated by movement, weight bearing. Associated signs and symptoms: Pertinent negatives fever. This is a 87 year old female with a history of CLL, CHF, COPD, HTN, that presents to the ED with right lower leg redness and swelling beginning approx 6 days ago which presented as a blister. The blister grew the next day to the size of a tennis ball, the blister was then debrided and the patient has applied topical triple antibiotic ointment since. Patient states that her right lower leg has developed redness and pain on walking. Patient denies fever but states she is prone to systemic infection. . Historical: - Allergies: 11:48 No Known Allergies; aj1 - Home Meds: 11:48 amlodipine 10 mg tab 1 tab once daily [Active]; biotin 5000mg Oral cap [Active]; aj1 calcium [Active]; carvedilol 25 mg Oral tab 1 tab 2 times per day [Active]; Co Q-10 Oral [Active]; Eliquis 2.5 mg Oral tab 1 tab 2 times per day [Active]; furosemide 40 mg Oral tab 1 tab 3 times per day [Active]; gabapentin 100 mg Oral cap 100mg at breakfast, 200mg at noon, 200mg at dinner and 1500mg at bedtime [Active]; ipratropium-albuterol 0.5 mg-3 mg(2.5 mg base)/3 mL Inhl nebu 3 mL 4 times per day [Active]; levocetirizine 5 mg Oral tab 1 tab once daily [Active]; levothyroxine 37.5 tab 1 tab once daily [Active]; levothyroxine oral 37.5mg [Active]; Magnesium Oxide Oral [Active]; montelukast 10 mg Oral tab 1 tab once daily [Active]; multivitamin with iron Oral tab [Active]; NAC 600 mg Oral cap twice a day [Active]; omeprazole 40 mg Oral cpDR 1 cap once daily [Active]; Potassium Chloride Oral [Active]; spironolactone 25 mg Oral tab 1 tab once daily [Active]; turmeric root extract Oral [Active]; Vitamin B-12 Oral [Active]; Vitamin B-6 Oral [Active]; Vitamin C Oral [Active]; Vitamin D3 Oral [Active]; - PMHx: 11:48 Aortic Stenosis; Atrial Fib; CHF; CLL; COPD; Hypertension; Hypothyroidism; mitral valve aj1 prolapse; neuropathy; - Immunization history:: Adult Immunizations up to date. - Social history:: Smoking status: Patient/guardian denies using tobacco. - Ebola Screening: : Patient denies travel to an Ebola-affected area in the 21 days before illness onset. ROS: 12:21 Constitutional: Negative for fever. jmm 12:21 MS/extremity: Positive for erythema, pain. 12:21 Skin: Positive for erythema. 12:21 Neuro: Negative for weakness. 12:21 All other systems are negative. 12:21 Constitutional: Negative for fever, chills, and weight loss. [facility] Exam: 12:21 Head/Face: atraumatic. [facility] 12:21 Constitutional: The patient appears in no acute distress, alert, awake. 12:21 Cardiovascular: Rate: normal. 12:21 Respiratory: the patient does not display signs of respiratory distress, Respirations: normal. 12:21 Back: ROM is normal. 12:21 Musculoskeletal/extremity: erythema noted to the right lower leg, compartments are soft, NVI. . 12:21 Skin: a large debrided blister is noted to the right lower leg, the area mildly tender to palpation, induration is noted surrounding the wound site. . 12:21 Neuro: Orientation: is normal, Mentation: is normal, Memory: is normal. 12:21 Psych: Behavior/mood is pleasant, cooperative. Vital Signs: 11:48 BP 107 / 57; Pulse 68; Resp 18; Temp 97.5; Pulse Ox 95% on R/A; Weight 51.71 kg; Height aj1 5 ft. 6 in. (167.64 cm); Pain 0/10; 13:30 BP 119 / 77; Pulse 80; Resp 19; Pulse Ox 99% on R/A; aj 15:48 Weight 51 kg; Height 5 ft. 6 in. (167.64 cm); em1 17:59 BP 118 / 63; Pulse 65; Resp 19; Pulse Ox 99% on R/A; aj 18:41 BP 109 / 61; Pulse 71; Resp 19; Pulse Ox 99% on R/A; aj 15:48 Body Mass Index 18.15 (51.00 kg, 167.64 cm) em1 MDM: 12:20 Patient medically screened. [facility] 12:21 Data reviewed: vital signs, nurses notes. [facility] 14:52 Physician consultation: Alberto Reid DO accepts admission. [facility] 12/02 12:21 Order name: CBC with Diff; Complete Time: 12:59 [facility] 12/02 12:21 Order name: CMP; Complete Time: 13:10 [facility] 12/02 12:21 Order name: Procalcitonin; Complete Time: 13:29 [facility] 12/02 12:21 Order name: Blood Culture Adult (2) [facility] 12/02 15:22 Order name: Basic Metabolic Panel [facility] 12/02 15:22 Order name: Basic Metabolic Panel [facility] 12/02 15:22 Order name: Basic Metabolic Panel [facility] 12/02 15:22 Order name: Basic Metabolic Panel [facility] 12/02 15:22 Order name: Basic Metabolic Panel [facility] 12/02 15:22 Order name: Basic Metabolic Panel [facility] 12/02 15:22 Order name: Magnesium [facility] 12/02 15:22 Order name: Magnesium [facility] 12/02 15:22 Order name: Magnesium [facility] 12/02 15:22 Order name: Magnesium [facility] 12/02 12:21 Order name: Saline Lock; Complete Time: 12:41 [facility] 12/02 15:22 Order name: Magnesium [facility] 12/02 15:22 Order name: Magnesium [facility] 12/02 15:22 Order name: Wound Culture [facility] 12/02 15:22 Order name: CONS Pharmacy Consult [facility] 12/02 15:22 Order name: CONS Physician Consult [facility] 12/02 15:22 Order name: Respiratory Therapy Consult [facility] 12/02 15:22 Order name: Heart Healthy [facility] 12/02 15:23 Order name: UPPER EXTREMITY VENOUS UNILATE [facility] 12/02 16:06 Order name: Urine Dipstick--Ancillary (enter results) em1 12/02 16:11 Order name: Urine Dipstick-Ancillary; Complete Time: 16:33 [facility] 12/02 17:00 Order name: Diet Regular; Complete Time: 17:01 ss Administered Medications: 15:08 Drug: vancoMYCIN 1 grams Route: IVPB; Infused Over: 2 hrs; Site: left antecubital; aj 18:01 Follow up: Response: No adverse reaction; IV Status: Completed infusion; IV Intake: aj 250ml Disposition: 18:48 Co-signature as Attending Physician, Shelton Choi MD. rn Disposition: 12/02/17 14:54 Hospitalization ordered by Alberto Reid for Observation. Preliminary diagnosis is Cellulitis of the right lower leg. - Bed requested for Telemetry/MedSurg (observation). - Status is Observation. aj - Condition is Stable. - Problem is new. - Symptoms are unchanged. UTI on Admission? Yes Signatures: [facility] Adelia Child RN RN ajArgentina Barbosa RN RN aj Reji Mccarthy PA PA [facility] Shelton Choi MD MD rn Fitzgerald, Diane, RN RN df Corrections: (The following items were deleted from the chart) 16:34 14:54 Hospitalization Ordered by Alberto Reid DO for Observation. Preliminary [facility] diagnosis is Cellulitis of the right lower leg. Bed requested for Telemetry/MedSurg (observation). Status is Observation. Condition is Stable. Problem is new. Symptoms are unchanged. UTI on Admission? No. [facility] 18:26 16:34 12/02/2017 14:54 Hospitalization Ordered by Alberto Reid DO for Observation. df Preliminary diagnosis is Cellulitis of the right lower leg. Bed requested for Telemetry/MedSurg (observation). Status is Observation. Condition is Stable. Problem is new. Symptoms are unchanged. UTI on Admission? Yes. [facility] 18:43 18:26 12/02/2017 14:54 Hospitalization Ordered by Alberto Reid DO for Observation. aj Preliminary diagnosis is Cellulitis of the right lower leg. Bed requested for Telemetry/MedSurg (observation). Status is Observation. Condition is Stable. Problem is new. Symptoms are unchanged. UTI on Admission? Yes. df
--- NOTE | 2017-12-02 14:55 | ER ---
Nurse's Notes [facility] Name: Jo Christopher Age: 87 yrs Sex: Female : 1930 Arrival Date: 12/02/2017 Time: 11:22 Bed 25 Private MD: Out, [facility] Diagnosis: Cellulitis of the right lower leg Presentation: 12/02 11:41 Presenting complaint: Patient states: "I had a blood blister on my leg and they drained aj1 and removed some of the skin on Monday morning, and now I'm starting to have pain and swelling in. I noticed some redness night when I changed the dressing". Transition of care: patient was not received from another setting of care. Onset of symptoms was November 23, 2017. Risk Assessment: Do you want to hurt yourself or someone else? Patient reports no desire to harm self or others. Initial Sepsis Screen: Does the patient meet any 2 criteria? No. Patient's initial sepsis screen is negative. Does the patient have a suspected source of infection? Yes: Other: would to leg. Care prior to arrival: None. 11:41 Method Of Arrival: Ambulatory [facility] 11:41 Acuity: ANTHONY 3 aj1 Triage Assessment: 11:48 General: Appears in no apparent distress. uncomfortable, Behavior is calm, cooperative, aj1 appropriate for age. Pain: Pain currently is 0 out of 10 on a pain scale. at worst was 5 out of 10 on a pain scale. Historical: - Allergies: 11:48 No Known Allergies; aj1 - Home Meds: 11:48 amlodipine 10 mg tab 1 tab once daily [Active]; biotin 5000mg Oral cap [Active]; aj1 calcium [Active]; carvedilol 25 mg Oral tab 1 tab 2 times per day [Active]; Co Q-10 Oral [Active]; Eliquis 2.5 mg Oral tab 1 tab 2 times per day [Active]; furosemide 40 mg Oral tab 1 tab 3 times per day [Active]; gabapentin 100 mg Oral cap 100mg at breakfast, 200mg at noon, 200mg at dinner and 1500mg at bedtime [Active]; ipratropium-albuterol 0.5 mg-3 mg(2.5 mg base)/3 mL Inhl nebu 3 mL 4 times per day [Active]; levocetirizine 5 mg Oral tab 1 tab once daily [Active]; levothyroxine 37.5 tab 1 tab once daily [Active]; levothyroxine oral 37.5mg [Active]; Magnesium Oxide Oral [Active]; montelukast 10 mg Oral tab 1 tab once daily [Active]; multivitamin with iron Oral tab [Active]; NAC 600 mg Oral cap twice a day [Active]; omeprazole 40 mg Oral cpDR 1 cap once daily [Active]; Potassium Chloride Oral [Active]; spironolactone 25 mg Oral tab 1 tab once daily [Active]; turmeric root extract Oral [Active]; Vitamin B-12 Oral [Active]; Vitamin B-6 Oral [Active]; Vitamin C Oral [Active]; Vitamin D3 Oral [Active]; - PMHx: 11:48 Aortic Stenosis; Atrial Fib; CHF; CLL; COPD; Hypertension; Hypothyroidism; mitral valve aj1 prolapse; neuropathy; - Immunization history:: Adult Immunizations up to date. - Social history:: Smoking status: Patient/guardian denies using tobacco. - Ebola Screening: : Patient denies travel to an Ebola-affected area in the 21 days before illness onset. Screenin:56 Abuse screen: Denies threats or abuse. Denies injuries from another. Nutritional aj screening: No deficits noted. Tuberculosis screening: No symptoms or risk factors identified. Fall Risk None identified. Assessment: 11:56 General: Appears in no apparent distress. comfortable, Behavior is calm, cooperative, aj appropriate for age. Pain: Denies pain. Neuro: Level of Consciousness is awake, alert, obeys commands, Oriented to person, place, time, situation, Appropriate for age. Respiratory: Airway is patent Respiratory effort is even, unlabored, Respiratory pattern is regular, symmetrical. GI: No signs and/or symptoms were reported involving the gastrointestinal system. Abdomen is flat, non-distended. Derm: Wound noted right hill and anterior aspect of right ankle Wound is Skin is red, no purulent drainage noted. Reports redness has increased in the last 2 days. 13:48 Reassessment: Patient appears in no apparent distress at this time. No changes from aj previously documented assessment. Patient and/or family updated on plan of care and expected duration. Pain level reassessed. Patient is alert, oriented x 3, equal unlabored respirations, skin warm/dry/pink. Patient denies pain at this time. 17:56 Reassessment: Awaiting room assignment. aj 17:59 Reassessment: Patient appears in no apparent distress at this time. No changes from aj previously documented assessment. Patient and/or family updated on plan of care and expected duration. Pain level reassessed. Patient is alert, oriented x 3, equal unlabored respirations, skin warm/dry/pink. Patient provided with dinner tray. Updated on reason for delay of admission. Vital Signs: 11:48 BP 107 / 57; Pulse 68; Resp 18; Temp 97.5; Pulse Ox 95% on R/A; Weight 51.71 kg; Height aj1 5 ft. 6 in. (167.64 cm); Pain 0/10; 13:30 BP 119 / 77; Pulse 80; Resp 19; Pulse Ox 99% on R/A; aj 15:48 Weight 51 kg; Height 5 ft. 6 in. (167.64 cm); em1 17:59 BP 118 / 63; Pulse 65; Resp 19; Pulse Ox 99% on R/A; aj 18:41 BP 109 / 61; Pulse 71; Resp 19; Pulse Ox 99% on R/A; aj 15:48 Body Mass Index 18.15 (51.00 kg, 167.64 cm) em1 ED Course: 11:22 Patient arrived in ED. sb2 11:23 Out, [facility] is Private Physician. sb2 11:46 Triage completed. aj1 11:48 Arm band placed on Patient placed in an exam room. aj1 11:51 Argentina Dumas, RN is Primary Nurse. aj 11:51 Reji Mccarthy PA is PHCP. jmm 11:51 Shelton Choi MD is Attending Physician. jmm 11:56 Patient has correct armband on for positive identification. aj 12:41 Inserted saline lock: 20 gauge in left antecubital area, using aseptic technique. Blood aj collected. 13:48 Dressings: Kerlix X 1; right hill 4X4s X 1; right hill. Wound care: to cellulitis aj located on right hill was dressed with Neosporin, 4X4s, Kerlix. 14:53 Alberto Reid DO is Hospitalizing Provider. bernardo 17:59 No provider procedures requiring assistance completed. aj 18:41 Patient admitted, IV remains in place. intact. aj Administered Medications: 15:08 Drug: vancoMYCIN 1 grams Route: IVPB; Infused Over: 2 hrs; Site: left antecubital; aj 18:01 Follow up: Response: No adverse reaction; IV Status: Completed infusion; IV Intake: aj 250ml Intake: 18:01 IV: 250ml; Total: 250ml. aayush Outcome: 14:54 Decision to Hospitalize by Provider. bernardo 18:41 Discharged to home via wheelchair. aj 18:41 Condition: good 18:41 Instructed on the need for admit, Demonstrated understanding of instructions. 18:43 Patient left the ED. aj Signatures: Adelia Child RN RN aj1 Argentina Dumas RN RN Reji Bauer PA PA jmm Martinez, Eric em1 Yuni Avilez sb2
[2017-12-02] MEDS ORDERED: VANCOMYCIN 1 GM/250 ML BAG ONE (15:04)
[2017-12-02] MEDS ORDERED: ACETAMINOPHEN 500 MG TAB PO PRN (15:12)
[2017-12-02] MEDS ORDERED: ALBUTEROL 2.5 MG/3 ML NEB SOL NEB PRN (15:12)
[2017-12-02] MEDS ORDERED: IPRATROPIUM BROM 0.5MG/2.5ML NEB PRN (15:12)
[2017-12-02] MEDS ORDERED: ONDANSETRON 4 MG/2 ML VIAL IV PRN (15:12)
[2017-12-02] MEDS ORDERED: HYDROCODONE/APAP 7.5/325 MG TAB PO PRN (15:12)
--- NOTE | 2017-12-02 15:28 | P.HP ---
Certification for Inpatient Patient admitted to: Inpatient With expected LOS: >2 Midnights Patient will require the following post-hospital care: None Practitioner: I am a practitioner with admitting privileges, knowledge of patient current condition, hospital course, and medical plan of care. Services: Services provided to patient in accordance with Admission requirements found in Title 42 Section 412.3 of the Code of Federal Regulations Patient History Date of Service: 12/02/17 Primary Care Provider: Dr. Villela; Oncology-Dr. Dover; Cardiology-Dr. Romano Reason for admission: Cellulitis right lower extremity History of Present Illness: 87-year-old female presented emergency room with right lower extremity cellulitis. Patient reports that on Monday she developed a blood blister to her right lower extremity below the knee. It started out as a dime size shape. The following day a grew to more like an egg like shape. On Monday she went to the emergency room. She had it evaluated. He was lanced and debrided. She was sent home to continue with wound care. On she felt there was more redness to the area. More erythema, pain was noted today. She denies any fever, chills, nausea, vomiting, shortness of breath or chest pain. She came to the emergency room for evaluation. In the ER she was evaluated. Cellulitis was noted to the right lower extremity with a large ulcer like area. White count 7.3, pro calcitonin negative. Due to the nature of the worsening of the infection the patient was admitted for IV treatment. Patient failed outpatient therapy. When I saw the patient the ER, she appeared comfortable. A large ulcer like a area to the right lower extremity was noted with erythema. 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 Patient is compliant with her medication. Allergies No Known Allergies Allergy (Verified 05/16/14 11:22) Home medications list reviewed: Yes Home Medications: Amlodipine [Norvasc*] 5 mg PO DAILY WITH BREAKFAST 05/16/14 Ascorbic Acid [Vitamin C*] 500 mg PO DAILY 05/16/14 Budesonide [Pulmicort Flexhaler] 180 mcg IH DAILY 05/16/14 Calcium Carbonate [Calcium] 500 mg PO DAILY 05/16/14 Carvedilol [Coreg*] 25 mg PO BID 05/16/14 Cholecalciferol (Vitamin D3) [Vitamin D3] 1,000 unit PO DAILY 05/16/14 Cyanocobalamin [Vitamin B-12*] 1,000 mcg PO DAILY 05/16/14 Fluticasone Propionate [Flovent Diskus] 50 mcg IH DAILY 05/16/14 Furosemide [Lasix*] 40 mg PO BID 05/16/14 Gabapentin [Neurontin*] 100 mg PO TID 05/16/14 Gabapentin [Neurontin] 800 mg PO BEDTIME 05/16/14 Ipratropium [Atrovent 0.03% (21MCG)/[place] Nasal*] 60 sprays NS QID PRN 05/16/14 Levocetirizine Dihydrochloride [Xyzal] 5 mg PO BEDTIME 05/16/14 Levothyroxine Sodium [Tirosint] 25 mcg PO EVERY 3RD DAY 05/16/14 Levothyroxine Sodium [Unithroid] 37.5 mcg PO M,W,F 05/16/14 Magnesium Oxide [Magnesium] 250 mg PO BID 05/16/14 Omeprazole [Prilosec] 40 mg PO DAILY 05/16/14 Potassium Gluconate [Potassium] 99 mg PO DAILY 05/16/14 Pyridoxine [Vitamin B-6*] 100 mg PO DAILY 05/16/14 Ubidecarenone/[place]-3/Vit E [Coq-10 & Fish Oil Softgel] 1 each PO DAILY - Past Medical/Surgical History Diabetic: No -: Hypertension -: Aortic stenosis, severe -: Mitral valve prolapse -: Atrial fibrillation, chronic anti coagulation therapy -: COPD -: Hypothyroidism -: Allergic rhinitis -: GERD -: Chronic renal disease -: Hysterectomy -: Tonsillectomy Psychosocial/ Personal History: The patient is a . She lives with her daughter. She has 3 children. - Family History Father -: Cancer (Prostate cancer) Mother -: Heart disease - Social History Smoking Status: Never smoker Alcohol use: No CD- Drugs: No Caffeine use: Yes Place of Residence: Home Review of Systems General: As per HPI Eyes: Unremarkable ENT: Unremarkable Respiratory: Unremarkable Cardiovascular: Unremarkable Gastrointestinal: Unremarkable Genitourinary: Unremarkable Musculoskeletal: Unremarkable Integumentary: As per HPI Neurological: Unremarkable Lymphatics: Unremarkable Physical Examination - Physical Exam General: Alert, In no apparent distress, Oriented x3, Cooperative HEENT: Atraumatic, Normocephalic, Mucous membr. moist/pink, EOMI Neck: Supple, No Thyromegaly Respiratory: Clear to auscultation bilaterally, Normal air movement Cardiovascular: Normal pulses, Regular rate/rhythm Gastrointestinal: Normal bowel sounds, Soft and benign, No ascites, No tenderness, No masses, No rebound, No guarding Musculoskeletal: Tenderness (Mild pain to the right lower extremity) Integumentary: Other (Large ulcer to the right lower extremity below the knee anteriorly. The area covers about 2 inches in diameter. There is erythema around the area nearing the ankle region. Mild pain and warmth is noted.) Neurological: Normal speech, Normal strength at 5/5 x4 extr, Normal tone, Normal affect Lymphatics: No axilla or inguinal lymphadenopathy - Studies Laboratory Data (last 24 hrs) 12/02/17 12:30: Sodium 138, Potassium 4.6, BUN 49 H, Creatinine 1.40 H, Glucose 92, Total Bilirubin 0.7, AST 27, ALT 27, Alkaline Phosphatase 77 12/02/17 12:30: WBC 7.3, Hgb 12.6, Hct 38.2, Plt Count 145 L Assessment and Plan - Problems (Diagnosis) (1) Cellulitis Current Visit: Yes Status: Acute Plan: Right lower extremity cellulitis with ulcer noted. Will start IV vancomycin and Zosyn. Will obtain blood and wound cultures. Will consult surgery to further evaluate. Patient may require debridement. Qualifiers: Site of cellulitis: extremity Site of cellulitis of extremity: lower extremity Laterality: right Qualified Code(s): L03.115 - Cellulitis of right lower limb (2) Ulcer Current Visit: Yes Status: Acute Plan: Large right lower extremity ulcer noted. Will continue as above. (3) Atrial fibrillation Current Visit: Yes Status: Chronic Plan: Will continue with her medication including chronic anti coagulation therapy- Eliquis. Qualifiers: Atrial fibrillation type: chronic Qualified Code(s): I48.2 - Chronic atrial fibrillation (4) Chronic anticoagulation Current Visit: Yes Status: Chronic Plan: Continue with Eliquis. (5) Aortic stenosis Current Visit: Yes Status: Chronic Plan: Continue with her medication including diuretic therapy. Will decrease her diuretic therapy due to her chronic renal disease. Qualifiers: Cardiac valve disease etiology: etiology unspecified Qualified Code(s): I35.0 - Nonrheumatic aortic (valve) stenosis (6) Hypertension Current Visit: Yes Status: Chronic Plan: Will continue with her medication. Qualifiers: Hypertension type: essential hypertension Qualified Code(s): I10 - Essential (primary) hypertension (7) COPD (chronic obstructive pulmonary disease) Current Visit: Yes Status: Chronic Plan: Will provide COPD medication. Qualifiers: COPD type: unspecified COPD Qualified Code(s): J44.9 - Chronic obstructive pulmonary disease, unspecified (8) Chronic renal disease Current Visit: Yes Status: Acute Plan: Patient with acute on chronic renal disease. Patient on multiple diuretic therapy. Will decrease dose of diuretics and monitor renal function. Qualifiers: Chronic kidney disease stage: stage 3 (moderate) Qualified Code(s): N18.3 - Chronic kidney disease, stage 3 (moderate) (9) Hypothyroidism Current Visit: Yes Status: Chronic Plan: Continue with her medication. Qualifiers: Hypothyroidism type: unspecified Qualified Code(s): E03.9 - Hypothyroidism , unspecified (10) GERD (gastroesophageal reflux disease) Current Visit: Yes Status: Chronic Plan: Continue medication. Qualifiers: Esophagitis presence: esophagitis presence not specified Qualified Code(s) : K21.9 - Gastro-esophageal reflux disease without esophagitis (11) Allergic rhinitis Current Visit: Yes Status: Chronic Plan: Continue medication. Qualifiers: Allergic rhinitis trigger: unspecified Allergic rhinitis seasonality: unspecified seasonality Qualified Code(s): J30.9 - Allergic rhinitis, unspecified Discharge Plan: Home Plan to discharge in: Greater than 2 days - Advance Directives Does patient have a Living Will: No Does patient have a Durable POA for Healthcare: No - Code Status/Comfort Care Code Status Assessed: Yes (Patient is DNR. Patient has paperwork) Time Spent Managing Pts Care (In Minutes): 55
[2017-12-02 16:11] LABS: Urine Blood NEGATIVE (NEG); Urine Glucose NEGATIVE (NEG); Urine Protein NEGATIVE (NEG); Urine pH 7.5 (5.0-7.0)
[2017-12-02] MEDS: PIPER/TAZO/NS 2.25gm 2.25 GM/50 ML BAG IV SCH (17:00)
[2017-12-02] MEDS: ARFORMOTEROL TARTRATE 15 MCG/2 ML VIAL.NEB NEB SCH (19:20)
[2017-12-02 20:13] VITALS: BMI 18.6
--- NOTE | 2017-12-02 20:17 | RAD REPORT ---
EXAM DESCRIPTION: VAS - Extremity Venous Uni Ltd - 12/02/2017 8:00 pm CLINICAL HISTORY: Right leg pain COMPARISON: None. TECHNIQUE: Real-time sonographic evaluation of the right lower extremity deep venous systems was per formed. Grayscale and Doppler evaluation of the vasculature performed. FINDINGS: Normal compressibility, flow augmentation, phasic flow and spontaneous flow are identified in the right lower extremity common femoral, superficial femoral and popliteal veins. Deep veins at the ankle also clear. No intraluminal filling defects seen. IMPRESSION: No DVT in the right lower extremity.
[2017-12-02] MEDS: APIXABAN 2.5 MG TABLET PO SCH (20:33)
[2017-12-02] MEDS: CARVEDILOL 25 MG TAB PO SCH (20:33)
[2017-12-02] MEDS: MONTELUKAST 10 MG TAB PO SCH (20:34)
[2017-12-02] MEDS: MUPIROCIN 2% OINT 22GM TUBE TOP SCH (20:55)
[2017-12-02] MEDS ORDERED: PIPER/TAZO/NS 3.375gm 3.375 GM/100 ML BAG IVPB SCH (21:00)
[2017-12-02] MEDS: GABAPENTIN 100 MG CAP PO SCH (21:31)
[2017-12-03] MEDS ORDERED: PIPER/TAZO/NS 2.25gm 2.25 GM/50 ML BAG ONE (00:16)
[2017-12-03] MEDS: PIPER/TAZO/NS 2.25gm 2.25 GM/50 ML BAG IV SCH ×3 (01:00→16:55)
[2017-12-03] MEDS: TRAMADOL HCL 50 MG TAB PO PRN (04:04)
[2017-12-03] MEDS: LEVOTHYROXINE SOD 0.025 MG TAB PO SCH (05:55)
[2017-12-03] MEDS: CARVEDILOL 25 MG TAB PO SCH ×2 (05:55→18:00)
[2017-12-03] MEDS: PANTOPRAZOLE 40MG TABLET PO SCH (05:55)
[2017-12-03 07:21] LABS: Absolute Monocytes 0.7 K/uL (0.1-1.3); Absolute Neutrophil 4.2 K/uL (1.8-8.0); Basophils % 0.4 % (0-1.3); Hematocrit 35.5 % (36.0-45.0); Lymphocytes % 17.1 % (15.3-44.8); MCV 91.9 fL (80-100); MPV 8.5 fL (7.6-11.3); Monocytes % 12.1 % (3.3-12.3); RBC Red Blood Cell Count 3.86 M/uL (3.86-4.86)
[2017-12-03 07:36] LABS: Magnesium 2.8 mg/dL (1.8-2.4)
[2017-12-03] MEDS: ARFORMOTEROL TARTRATE 15 MCG/2 ML VIAL.NEB NEB SCH ×2 (07:55→20:17)
[2017-12-03] MEDS ORDERED: VANCOMYCIN 1 GM in NA CHLORIDE 0.9% 500 ML IVPB SCH (09:00)
--- NOTE | 2017-12-03 09:13 | P.PN ---
Subjective Date of Service: 12/03/17 Primary Care Provider: Dr. Villela; Oncology-Dr. Dover; Cardiology-Dr. Romano Chief Complaint: Cellulitis right lower extremity Subjective: Improving (No significant pain to the lower extremity. Erythema also improved.) Physical Examination - Vital Signs Temperature: 98.0 F Blood Pressure: 129/64 Pulse: 67 Respirations: 18 Pulse Ox (%): 96 - Physical Exam General: Alert, In no apparent distress, Oriented x3, Cooperative HEENT: Atraumatic Neck: Supple Respiratory: Clear to auscultation bilaterally, Normal air movement Cardiovascular: Irregular heart rate/rhythm (Atrial fibrillation, rate controlled) Gastrointestinal: Normal bowel sounds, Soft and benign, Non-distended, No tenderness, No masses, No rebound, No guarding Integumentary: Other (Ulcer, erythema to the right lower extremity significantly improved. No exudate noted.) Neurological: Normal speech, Normal strength at 5/5 x4 extr, Normal tone, Normal affect - Studies Laboratory Data (last 24 hrs) 12/02/17 12:30: Sodium 138, Potassium 4.6, BUN 49 H, Creatinine 1.40 H, Glucose 92, Total Bilirubin 0.7, AST 27, ALT 27, Alkaline Phosphatase 77 12/02/17 12:30: WBC 7.3, Hgb 12.6, Hct 38.2, Plt Count 145 L Medications List Reviewed: Yes Assessment & Plan - Problems (Diagnosis) (1) Cellulitis Current Visit: Yes Status: Acute Plan: Right lower extremity cellulitis with ulcer noted. Area shows improvement. Less erythema, swelling noted. No exudate noted. Continue vancomycin and Zosyn. Wound culture obtained. Surgery to evaluate for possible debridement. Patient likely not needing any debridement at this time. Anticipate discharge tomorrow. I will turn the service over to Dr. Jewell tomorrow. I will go over the plan of care with her. Qualifiers: Site of cellulitis: extremity Site of cellulitis of extremity: lower extremity Laterality: right Qualified Code(s): L03.115 - Cellulitis of right lower limb (2) Ulcer Current Visit: Yes Status: Acute Plan: Large right lower extremity ulcer noted. Area shows improvement. Continue as above. (3) Atrial fibrillation Current Visit: Yes Status: Chronic Plan: Overall stable. Rate controlled. Will continue with her medication including chronic anti coagulation therapy-Eliquis. Qualifiers: Atrial fibrillation type: chronic Qualified Code(s): I48.2 - Chronic atrial fibrillation (4) Chronic anticoagulation Current Visit: Yes Status: Chronic Plan: Continue with Eliquis. (5) Aortic stenosis Current Visit: Yes Status: Chronic Plan: Continue with her medication including diuretic therapy. Diuretic therapy has been decreased due to her chronic renal disease. Qualifiers: Cardiac valve disease etiology: etiology unspecified Qualified Code(s): I35.0 - Nonrheumatic aortic (valve) stenosis (6) Hypertension Current Visit: Yes Status: Chronic Plan: Will continue with her medication. Qualifiers: Hypertension type: essential hypertension Qualified Code(s): I10 - Essential (primary) hypertension (7) COPD (chronic obstructive pulmonary disease) Current Visit: Yes Status: Chronic Plan: Will continue with COPD medication. Qualifiers: COPD type: unspecified COPD Qualified Code(s): J44.9 - Chronic obstructive pulmonary disease, unspecified (8) Chronic renal disease Current Visit: Yes Status: Acute Plan: Patient with acute on chronic renal disease. Diuretic therapy decreased. Renal function improved. Patient may require adjustment in medication at discharge. Qualifiers: Chronic kidney disease stage: stage 3 (moderate) Qualified Code(s): N18.3 - Chronic kidney disease, stage 3 (moderate) (9) Hypothyroidism Current Visit: Yes Status: Chronic Plan: Continue with her medication. Qualifiers: Hypothyroidism type: unspecified Qualified Code(s): E03.9 - Hypothyroidism , unspecified (10) GERD (gastroesophageal reflux disease) Current Visit: Yes Status: Chronic Plan: Continue medication. Qualifiers: Esophagitis presence: esophagitis presence not specified Qualified Code(s) : K21.9 - Gastro-esophageal reflux disease without esophagitis (11) Allergic rhinitis Current Visit: Yes Status: Chronic Plan: Continue medication. Qualifiers: Allergic rhinitis trigger: unspecified Allergic rhinitis seasonality: unspecified seasonality Qualified Code(s): J30.9 - Allergic rhinitis, unspecified Discharge Plan: Home Plan to discharge in: 24 Hours - Code Status/Comfort Care Code Status Assessed: Yes (Patient has DNR papers) Time Spent Managing Pts Care (In Minutes): 55
[2017-12-03] MEDS: FUROSEMIDE 40 MG TABLET PO SCH (09:45)
[2017-12-03] MEDS: CETIRIZINE HCL 5 MG TABLET PO SCH (09:45)
[2017-12-03] MEDS: APIXABAN 2.5 MG TABLET PO SCH ×2 (09:46→20:32)
[2017-12-03] MEDS: SPIRONOLACTONE 25 MG TABLET PO SCH (09:46)
[2017-12-03] MEDS: GABAPENTIN 100 MG CAP PO SCH ×3 (09:46→20:32)
[2017-12-03] MEDS: AMLODIPINE 10 MG TAB PO SCH (09:46)
[2017-12-03] MEDS: MUPIROCIN 2% OINT 22GM TUBE TOP SCH ×2 (09:49→20:33)
[2017-12-03] MEDS: MONTELUKAST 10 MG TAB PO SCH (20:32)
--- NOTE | 2017-12-03 20:46 | CON ---
Date of Consultation: 12/03/2017 Diagnosis: Necrotic right venous stasis ulcer. Indication For Procedure: This is the case of an 87-year-old patient, comes to us with cellulitis an d right lower extremity ulcer with blister present, partially broken and devitalized tissue. She osman s not remember exactly what happened. She understands she has vein disease. She denies any dysuria, hematuria, hematochezia, or melena. Denies any recent traveling out of the country. Denies any fam nidhi member sick at home. Past Medical History: Include aortic stenosis, atrial fibrillation, COPD, hypertension, hypothyroidi sm, mitral valve prolapse, and neuropathy. Allergies: NONE. Medications: Reviewed. Social History: She does not smoke. She does not drink alcohol. Family History: Heart disease. Review of Systems: Constitutional: Denies any fever or chills. Respiratory: Denies any shortness of breath. Integumentary: See above. Physical Examination: General: The patient is awake and alert. HEENT: Pupils are anicteric. Neck: Supple. Chest: Clear. Abdomen: Soft and depressible. Extremities: Bilateral lower extremity with decreased dorsalis pedis pulses still present. No cyano sis. The patient has venous stasis disease changes with hyperpigmentation and varicosities. On the right leg, the patient has about 7 x 8 cm venous stasis ulcer with devitalized tissue that needs to b e debrided. There is erythema associated with it, and increased temperature consistent with cellulit is. Laboratory Data: Blood work shows WBC count of 6.1, hemoglobin of 12; creatinine is 1.10. Venous Doppler shows no DVT on the right lower extremity. Assessment: This is an 87-year-old patient with infected venous stasis ulcer. The patient was offer ed debridement with benefits, alternatives, and risks including, but not limited to infection, bleedi ng, damage to adjacent structures, anesthesia complication, recurrence, [place], and even . She also understands this may not relieve any symptoms. She might need more than one surgical intervention. She also understands the importance of her following up [facility] after she gets d ischarged and also we encouraged her to see a Ve[facility] Center to trying to see the underlying condition t hat is causing this disease. TRINITY/FELICITA Voice ID: [id number] Report ID: [id number]
[2017-12-04] MEDS: PIPER/TAZO/NS 2.25gm 2.25 GM/50 ML BAG IV SCH ×3 (00:26→17:34)
[2017-12-04] MEDS: TRAMADOL HCL 50 MG TAB PO PRN ×2 (03:29→15:30)
[2017-12-04 04:15] LABS: Absolute Monocytes 1.1 K/uL (0.1-1.3); Absolute Neutrophil 6.4 K/uL (1.8-8.0); Basophils % 0.4 % (0-1.3); Eosinophils % 1.6 % (0-4.4); Lymphocytes % 11.5 % (15.3-44.8); MCH 30.4 pg (27.0-35.0); MCV 92.2 fL (80-100); MPV 8.4 fL (7.6-11.3); Monocytes % 12.6 % (3.3-12.3); RBC Red Blood Cell Count 4.01 M/uL (3.86-4.86)
[2017-12-04 04:27] LABS: Magnesium 2.2 mg/dL (1.8-2.4); Potassium 4.2 mmol/L (3.5-5.1)
[2017-12-04] MEDS ORDERED: VANCOMYCIN/NS 1 gm 1 GM/250 ML BAG IV SCH (05:00)
[2017-12-04] MEDS: CARVEDILOL 25 MG TAB PO SCH ×2 (05:00→17:34)
[2017-12-04] MEDS: LEVOTHYROXINE SOD 0.025 MG TAB PO SCH (05:00)
[2017-12-04] MEDS: PANTOPRAZOLE 40MG TABLET PO SCH (05:56)
[2017-12-04] MEDS ORDERED: LIDOCAINE VISCOUS 2% SOLN 15 ML UDC MM ONE (08:00)
[2017-12-04] MEDS: ARFORMOTEROL TARTRATE 15 MCG/2 ML VIAL.NEB NEB SCH ×2 (08:00→19:14)
[2017-12-04] MEDS: AMLODIPINE 10 MG TAB PO SCH (09:50)
[2017-12-04] MEDS: SPIRONOLACTONE 25 MG TABLET PO SCH (09:50)
[2017-12-04] MEDS: CETIRIZINE HCL 5 MG TABLET PO SCH (09:50)
[2017-12-04] MEDS: FUROSEMIDE 40 MG TABLET PO SCH (09:51)
[2017-12-04] MEDS: GABAPENTIN 100 MG CAP PO SCH ×3 (09:51→20:32)
[2017-12-04] MEDS: MUPIROCIN 2% OINT 22GM TUBE TOP SCH ×2 (09:51→20:34)
[2017-12-04] MEDS: APIXABAN 2.5 MG TABLET PO SCH ×2 (09:51→20:32)
--- NOTE | 2017-12-04 13:06 | RAD REPORT ---
EXAM DESCRIPTION: RAD - Chest Single View - 12/04/2017 12:53 pm CLINICAL HISTORY: Shortness of breath COMPARISON: May 2008 TECHNIQUE: AP portable chest image was obtained 1243 hours . FINDINGS: Diffusely prominent interstitial markings are present progressive from prior imaging. Smal l bilateral pleural effusions are present. Significant cardiomegaly is present with prominence of the vasculature. No pneumothorax. No gross bony abnormality seen. No acute aortic finding. Overall prominence of the interstitial markings could indicate a progressive fibrotic pattern. Focall y more pronounced alveolar opacification is present in the mid and lower left lung field suspicious f or superimposed pneumonia. Increased prominence of the right lung base is less definitive as to etiol ogy. This could be infiltrate, atelectasis or progressive fibrosis. IMPRESSION: Suspected left lung field pneumonia superimposed on interstitial fibrosis that has progr essed since 2007. Right base interstitial stranding could be progressive fibrosis, infiltrate or atelectasis. Cardiomegaly and vascular engorgement. Underlying mild component of failure or volume overload suspec melyssa.
--- NOTE | 2017-12-04 14:03 | P.PN ---
Subjective Date of Service: 12/04/17 Primary Care Provider: Dr. Villela; Oncology-Dr. Dover; Cardiology-Dr. Romano Chief Complaint: Cellulitis right lower extremity Pt seen and examined at bedside with RN. Doing well overall. Currently awaiting bedside surgical Debriment. No complains to offer at this time. Review of Systems General: As per HPI Physical Examination - Vital Signs Temperature: 98.3 F Blood Pressure: 140/75 Pulse: 92 Respirations: 18 Pulse Ox (%): 94 - Physical Exam General: Alert, In no apparent distress, Oriented x3 HEENT: Atraumatic Neck: Supple, JVD not distended Respiratory: Clear to auscultation bilaterally, Normal air movement Cardiovascular: Regular rate/rhythm, Normal S1 S2 Gastrointestinal: Normal bowel sounds, Soft and benign, Non-distended, No tenderness Musculoskeletal: No tenderness Integumentary: Rash(es), Erythema, Warmth, Venous stasis ulcer Neurological: Normal speech, Normal tone, Normal affect Lymphatics: No axilla or inguinal lymphadenopathy - Studies Medications List Reviewed: Yes Assessment & Plan - Problems (Diagnosis) (1) Cellulitis Current Visit: Yes Status: Acute Plan: Right LE cellulitis. Most likely 2.2 to Venous Stasis -Surgery consulted. Reccs Appreciated -Scheduled for Debridement today -On IV vanc and zosyn for now -Wound care daily for now Qualifiers: Site of cellulitis: extremity Site of cellulitis of extremity: lower extremity Laterality: right Qualified Code(s): L03.115 - Cellulitis of right lower limb (2) Atrial fibrillation Current Visit: Yes Status: Chronic Qualifiers: Atrial fibrillation type: chronic Qualified Code(s): I48.2 - Chronic atrial fibrillation (3) COPD (chronic obstructive pulmonary disease) Current Visit: Yes Status: Chronic Qualifiers: COPD type: unspecified COPD Qualified Code(s): J44.9 - Chronic obstructive pulmonary disease, unspecified (4) GERD (gastroesophageal reflux disease) Current Visit: Yes Status: Chronic Qualifiers: Esophagitis presence: esophagitis presence not specified Qualified Code(s) : K21.9 - Gastro-esophageal reflux disease without esophagitis (5) Hypertension Current Visit: Yes Status: Chronic Qualifiers: Hypertension type: essential hypertension Qualified Code(s): I10 - Essential (primary) hypertension (6) Hypothyroidism Current Visit: Yes Status: Chronic Qualifiers: Hypothyroidism type: acquired Qualified Code(s): E03.9 - Hypothyroidism, unspecified (7) Aortic stenosis Current Visit: Yes Status: Chronic Qualifiers: Cardiac valve disease etiology: etiology unspecified Qualified Code(s): I35.0 - Nonrheumatic aortic (valve) stenosis Discharge Plan: Home Plan to discharge in: 24 Hours - Code Status/Comfort Care Code Status Assessed: Yes Critical Care: No
--- NOTE | 2017-12-04 14:11 | P.BOP ---
Preoperative diagnosis: infected right leg venous stasis ulcer Postoperative diagnosis: same Primary procedure: Excisional debridement of infected right leg venous stasis ulcer 8x7cm Estimated blood loss: <5cc Specimen: none Findings: infected right leg venous stasis ulcer Anesthesia: Local Complications: None Transferred to: Other Condition: Good
[2017-12-04] MEDS: MONTELUKAST 10 MG TAB PO SCH (20:32)
[2017-12-05] MEDS: PIPER/TAZO/NS 2.25gm 2.25 GM/50 ML BAG IV SCH ×2 (00:02→10:01)
--- NOTE | 2017-12-05 00:09 | OP ---
Date of Procedure: 12/04/2017 Surgeon: Luis Jiang MD Preoperative Diagnosis: Right leg venous stasis ulcer, infected. Postoperative Diagnosis: Right leg venous stasis ulcer, infected. Procedure: Excisional debridement of the right anterior leg venous stasis ulcer about 7 x 8 cm. Anesthesia: Local. Indications: This is the case of a female, who comes to us admitted with multiple medical problems, also found to have a venous stasis ulcer on the right lower extremity. She has already peripheral va scular disease changes with venous stasis disease changes with hyperpigmentation. The patient was fu lly explained the need for debridement with benefits, alternatives, and risks including, but not limi melyssa to infection, bleeding, damage to adjacent structures, anesthesia complication, nonhealing wound, [place], and even . She also understands this may not relieve any symptoms. She might need more th an one surgical intervention. She understands also the importance of wound care and she was welcome to come to the [facility] to help her heal this wound. Description Of Procedure: She understood and signed a consent. A time-out was called. Right leg wa s prepped and draped in a sterile fashion. Local lidocaine viscous was applied to the area followed by sharp incision of the skin, and a generalized tissue with an 11-blade. The area was irrigated. T he hemostasis was obtained, and the area was packed with dry gauze and sterile dressings. The patient tolerated the procedure well. THEO Voice ID: [id number] Report ID: [id number]
[2017-12-05] MEDS: TRAMADOL HCL 50 MG TAB PO PRN ×3 (02:05→17:05)
[2017-12-05 04:48] LABS: Absolute Monocytes 1.3 K/uL (0.1-1.3); Absolute Neutrophil 6.1 K/uL (1.8-8.0); Basophils % 0.5 % (0-1.3); Eosinophils % 0.5 % (0-4.4); Hematocrit 34.6 % (36.0-45.0); Lymphocytes % 11.9 % (15.3-44.8); MCH 30.5 pg (27.0-35.0); MCV 91.9 fL (80-100); MPV 8.3 fL (7.6-11.3); Monocytes % 15.3 % (3.3-12.3); RBC Red Blood Cell Count 3.76 M/uL (3.86-4.86)
[2017-12-05 05:11] LABS: Magnesium 2.1 mg/dL (1.8-2.4); Potassium 3.7 mmol/L (3.5-5.1)
[2017-12-05] MEDS ORDERED: POTASSIUM CL SA 10 MEQ TAB PO ONE (05:22)
[2017-12-05 05:45] LABS: Blood Morphology Comment NOT SEEN (NOT SEEN); Platelet Estimate ADEQ
[2017-12-05] MEDS: LEVOTHYROXINE SOD 0.025 MG TAB PO SCH (05:48)
[2017-12-05] MEDS: PANTOPRAZOLE 40MG TABLET PO SCH (05:48)
[2017-12-05] MEDS: CARVEDILOL 25 MG TAB PO SCH (05:49)
[2017-12-05] MEDS: ARFORMOTEROL TARTRATE 15 MCG/2 ML VIAL.NEB NEB SCH (07:30)
[2017-12-05 08:20] VITALS: O2SAT 92
[2017-12-05] MEDS: FUROSEMIDE 40 MG TABLET PO SCH (10:01)
[2017-12-05] MEDS: SPIRONOLACTONE 25 MG TABLET PO SCH (10:01)
[2017-12-05] MEDS: CETIRIZINE HCL 5 MG TABLET PO SCH (10:02)
[2017-12-05] MEDS: AMLODIPINE 10 MG TAB PO SCH (10:02)
[2017-12-05] MEDS: GABAPENTIN 100 MG CAP PO SCH ×2 (10:02→16:14)
[2017-12-05] MEDS: APIXABAN 2.5 MG TABLET PO SCH (10:02)
[2017-12-05 11:52] VITALS: BP 138/76; TEMP 99.2
--- NOTE | 2017-12-05 14:52 | P.DS ---
Admission Date: 12/02/17 Discharge Date: 12/05/17 Primary Care Provider: Dr. Villela; Oncology-Dr. Dover; Cardiology-Dr. Romano Disposition: ROUTINE DISCHARGE Discharge Condition: GOOD Reason for Admission: Cellulitis right lower extremity Consultations: General Surgery Procedures: Bedside I&D - Problems (1) Cellulitis Onset Date: 12/04/17 Current Visit: Yes Status: Acute Qualifiers: Site of cellulitis: extremity Site of cellulitis of extremity: lower extremity Laterality: right Qualified Code(s): L03.115 - Cellulitis of right lower limb (2) Atrial fibrillation Onset Date: 12/04/17 Current Visit: Yes Status: Chronic Qualifiers: Atrial fibrillation type: chronic Qualified Code(s): I48.2 - Chronic atrial fibrillation (3) COPD (chronic obstructive pulmonary disease) Onset Date: 12/04/17 Current Visit: Yes Status: Chronic Qualifiers: COPD type: unspecified COPD Qualified Code(s): J44.9 - Chronic obstructive pulmonary disease, unspecified (4) GERD (gastroesophageal reflux disease) Onset Date: 12/04/17 Current Visit: Yes Status: Chronic Qualifiers: Esophagitis presence: esophagitis presence not specified Qualified Code(s) : K21.9 - Gastro-esophageal reflux disease without esophagitis (5) Hypertension Onset Date: 12/04/17 Current Visit: Yes Status: Chronic Qualifiers: Hypertension type: essential hypertension Qualified Code(s): I10 - Essential (primary) hypertension (6) Hypothyroidism Onset Date: 12/04/17 Current Visit: Yes Status: Chronic Qualifiers: Hypothyroidism type: acquired Qualified Code(s): E03.9 - Hypothyroidism, unspecified (7) Aortic stenosis Onset Date: 12/04/17 Current Visit: Yes Status: Chronic Qualifiers: Cardiac valve disease etiology: etiology unspecified Qualified Code(s): I35.0 - Nonrheumatic aortic (valve) stenosis Brief History of Present Illness: 87-year-old female presented emergency room with right lower extremity cellulitis. Patient reports that on Monday she developed a blood blister to her right lower extremity below the knee. It started out as a dime size shape. The following day a grew to more like an egg like shape. On Monday she went to the emergency room. She had it evaluated. He was lanced and debrided. She was sent home to continue with wound care. On she felt there was more redness to the area. More erythema, pain was noted today. She denies any fever, chills, nausea, vomiting, shortness of breath or chest pain. She came to the emergency room for evaluation. In the ER she was evaluated. Cellulitis was noted to the right lower extremity with a large ulcer like area. White count 7.3, pro calcitonin negative. Due to the nature of the worsening of the infection the patient was admitted for IV treatment. Patient failed outpatient therapy. When I saw the patient the ER, she appeared comfortable. A large ulcer like a area to the right lower extremity was noted with erythema. 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 Patient is compliant with her medication. Hospital Course: Overall during the hospital stay patient remained stable Patient was initially admitted to the hospital for right lower leg extremity cellulitis. Was started on IV antibiotics. General surgery was consulted. Who recommended bedside I and D of the boil that appeared on the right anterior aspect of the hill. Patient had bedside I and D and tolerated the procedure well. Wound cultures were sent for culture. Cultures were negative thus far. Patient was switched over to just Bactroban ointment topically with gauze. Patient was educated on wound care. Patient cellulitis most likely secondary to chronic venous stasis. Patient then was discharged home under stable condition once her cellulitis improved and her ulcer improved. Patient was to follow up with wound healing Center in about 1 week with the general surgeon. Patient is to continue doing the Bactroban twice daily with gauze she for the dressings. Patient was advised on awaiting wet-to-dry dressing to the area. Patient demonstrated understanding. Home health wound care was also established. Patient was then discharged home under stable condition with the care of her family members. Diet:Regular Activity:Ad rakel PHYSICIAN'S DISCHARGE INSTRUCTIONS Please f.u with PCP and Dr Jiang in 1 to 2 weeks post discharge Wound care instruction: Bactroban ointment to the wound Twice daily and gauze on top. No wet to dry dressing. Vital Signs/Physical Exam: Temp Pulse Resp BP Pulse Ox 99.2 F 98 H 18 138/76 92 12/05/17 11:51 12/05/17 11:51 12/05/17 11:51 12/05/17 11:51 12/05/17 11:51 General: Alert, In no apparent distress HEENT: Atraumatic, PERRLA, EOMI Neck: Supple, JVD not distended Respiratory: Clear to auscultation bilaterally, Normal air movement Cardiovascular: Regular rate/rhythm, Normal S1 S2 Gastrointestinal: Normal bowel sounds, No tenderness Musculoskeletal: No tenderness Integumentary: Tenderness/swelling, Erythema (Improved from before. ) Neurological: Normal speech, Normal tone, Normal affect Lymphatics: No axilla or inguinal lymphadenopathy Laboratory Data at Discharge: WBC 8.5 K/uL (4.3-10.9) 12/05/17 04:03 Hgb 11.5 g/dL (12.0-15.0) L 12/05/17 04:03 Hct 34.6 % (36.0-45.0) L 12/05/17 04:03 Plt Count 147 K/uL (152-406) L 12/05/17 04:03 Sodium 139 mmol/L (136-145) 12/05/17 04:03 Potassium 3.7 mmol/L (3.5-5.1) 12/05/17 04:03 BUN 27 mg/dL (7-18) H 12/05/17 04:03 Creatinine 1.00 mg/dL (0.55-1.3) 12/05/17 04:03 Glucose 97 mg/dL (74-106) 12/05/17 04:03 Magnesium 2.1 mg/dL (1.8-2.4) 12/05/17 04:03 Total Bilirubin 0.7 mg/dL (0.2-1.0) 12/02/17 12:30 AST 27 U/L (15-37) 12/02/17 12:30 ALT 27 U/L (12-78) 12/02/17 12:30 Alkaline Phosphatase 77 U/L (45-117) 12/02/17 12:30 Home Medications: Amlodipine [Norvasc*] 5 mg PO DAILY WITH BREAKFAST 05/16/14 Ascorbic Acid [Vitamin C*] 500 mg PO DAILY 05/16/14 Budesonide [Pulmicort Flexhaler] 180 mcg IH DAILY 05/16/14 Calcium Carbonate [Calcium] 500 mg PO DAILY 12/12/14 Carvedilol [Coreg*] 25 mg PO BID 05/16/14 Cholecalciferol (Vitamin D3) [Vitamin D3] 1,000 unit PO DAILY 05/16/14 Cyanocobalamin [Vitamin B-12*] 1,000 mcg PO DAILY 05/16/14 Fluticasone Propionate [Flovent Diskus] 50 mcg IH DAILY 05/16/14 Furosemide [Lasix*] 40 mg PO BID 05/16/14 Gabapentin [Neurontin*] 200 mg PO TID 05/16/14 Gabapentin [Neurontin] 1,500 mg PO BEDTIME 05/16/14 Ipratropium [Atrovent 0.03% (21MCG)/Convent Nasal*] 60 sprays NS QID PRN 05/16/14 Levocetirizine Dihydrochloride [Xyzal] 5 mg PO BEDTIME 05/16/14 Levothyroxine Sodium [Tirosint] 25 mcg PO EVERY 3RD DAY 05/16/14 Magnesium Oxide [Magnesium] 250 mg PO BID 05/16/14 Omeprazole [Prilosec] 40 mg PO DAILY 05/16/14 Potassium Gluconate [Potassium] 99 mg PO DAILY 05/16/14 Pyridoxine [Vitamin B-6*] 100 mg PO DAILY 05/16/14 Ubidecarenone/[place]-3/Vit E [Coq-10 & Fish Oil Softgel] 1 each PO DAILY Apixaban [Eliquis *] 2.5 mg PO BID 12/02/17 Spironolactone [Aldactone*] 25 mg PO DAILY 12/02/17 Mupirocin Oint [Bactroban 2% Ointment*] 1 appl TOP BID #1 tube 12/05/17 New Medications: Mupirocin Oint [Bactroban 2% Ointment*] 1 appl TOP BID #1 tube Patient Discharge Instructions: Please f.u with PCP and Dr Jiang in 1 to 2 weeks post discharge. Wound care instruction: Bactroban ointment to the wound Twice daily and gauze on top. No wet to dry dressing. Diet: Regular Activity: Ad rakel Followup: Luis Jiang MD [ACTIVE - CAN ADMIT] - 1-2 Weeks (call the office to make an appointment in 1-2 weeks. )
[2017-12-05] MEDS: MUPIROCIN 2% OINT 22GM TUBE TOP SCH (15:10)
== END 2017-12-05 17:09 | disposition home or self-care (01) | DRG 300 ==
LOC: ER 11:19 → ERHOLD 15:12 → 4TH 18:33
PROVIDERS: ADMIT Family Medicine; ATTEND Family Medicine
PROC: 0HBKXZZ Excision of Right Lower Leg Skin, External Approach (ICD-10-PCS; principal; 2017-12-04)
DX: I87.2 Venous insufficiency (chronic) (peripheral) (principal); L97.811 Non-pressure chronic ulcer of other part of right lower leg limited to breakdown of skin; L03.115 Cellulitis of right lower limb; C91.11 Chronic lymphocytic leukemia of B-cell type in remission; I48.2 Chronic atrial fibrillation; J44.9 Chronic obstructive pulmonary disease, unspecified; K21.9 Gastro-esophageal reflux disease without esophagitis; I35.0 Nonrheumatic aortic (valve) stenosis; Z79.01 Long term (current) use of anticoagulants; I34.1 Nonrheumatic mitral (valve) prolapse; G62.9 Polyneuropathy, unspecified; I12.9 Hypertensive chronic kidney disease with stage 1 through stage 4 chronic kidney disease, or unspecified chronic kidney disease; N18.3 Chronic kidney disease, stage 3 (moderate); J30.9 Allergic rhinitis, unspecified
CPT/HCPCS: 36415; 71045; 80048; 80053; 80202; 81003; 83735; 84145; 85025; 87040; 87070; 87205; 93971; 94640; 96365; 96366; 99284; J2543; J3370; J7605

== ENCOUNTER 2018-01-14 11:47 | Emergency (ER) | payer OTHER ==
--- OUTSIDE RECORDS SUMMARY | 2018-01-14 11:49 | XMS REPORT | Clinical Summary ---
:1930 Author Organization [facility] Address [address] [place] [address] Care Team Providers Name Role Phone Negro [...] congestive heart failure type (Primary Dx) after 01/13/2017 Immunizations Name Dates Previously Given Next Due [...] are in SPECTRAL COLOR DOPPLER the results (82573) section. HC COMPLETE BLD COUNT Routine 02/24/2017 [...] procedure are in the results section. after 01/13/2017 Results CBC with platelet and differential (02/25/2017 5:30 AM)Only the most recent of3 resultswithin the time period is included. WBC 6.20 4.50 - 11.00 k/uL [facility] DEPARTMENT OF PATHOLOGY AND GENOMIC MEDICINE RBC 4.25 4.20 - 5.50 m/uL [facility] DEPARTMENT OF PATHOLOGY AND GENOMIC MEDICINE HGB 12.6 12.0 - 16.0 g/dL [facility] DEPARTMENT OF PATHOLOGY AND GENOMIC MEDICINE HCT 38.7 37.0 - 47.0 % [facility] DEPARTMENT OF PATHOLOGY AND GENOMIC MEDICINE MCV 91.1 82.0 - 100.0 fL [facility] DEPARTMENT OF PATHOLOGY AND GENOMIC MEDICINE MCH 29.6 27.0 - 34.0 pg [facility] DEPARTMENT OF PATHOLOGY AND GENOMIC MEDICINE MCHC 32.6 31.0 - 37.0 g/dL [facility] DEPARTMENT OF PATHOLOGY AND GENOMIC MEDICINE RDW - SD 45.2 37.0 - 55.0 fL [facility] DEPARTMENT OF PATHOLOGY AND GENOMIC MEDICINE MPV 10.1 8.8 - 13.2 fL [facility] DEPARTMENT OF PATHOLOGY AND GENOMIC MEDICINE Platelet count 190 150 - 400 k/uL [facility] DEPARTMENT OF PATHOLOGY AND GENOMIC MEDICINE Nucleated RBC 0.00 /100 WBC [facility] DEPARTMENT OF PATHOLOGY AND GENOMIC MEDICINE Neutrophils 57.4 39.0 - 69.0 % [facility] DEPARTMENT OF PATHOLOGY AND GENOMIC MEDICINE Lymphocytes 24.8 (L) 25.0 - 45.0 % [facility] DEPARTMENT OF PATHOLOGY AND GENOMIC MEDICINE Monocytes 13.1 (H) 0.0 - 10.0 % [facility] DEPARTMENT OF PATHOLOGY AND GENOMIC MEDICINE Eosinophils 3.7 0.0 - 5.0 % [facility] DEPARTMENT OF PATHOLOGY AND GENOMIC MEDICINE Basophils 0.8 0.0 - 1.0 % [facility] DEPARTMENT OF PATHOLOGY AND GENOMIC MEDICINE Immature granulocytes 0.2Comment: 0.0 - 1.0 % [facility] DEPARTMENT OF "Immature PATHOLOGY AND GENOMIC granulocytes" MEDICINE (promyelocytes, myelocytes, metamyelocytes) Specimen Blood Performing Organization Address City/[facility] Phone Number [facility] DEPARTMENT OF PATHOLOGY AND [address] [place] [address] [employer] MEDICINE Estimated GFR (02/25/2017 4:00 AM)Only the most recent of3 resultswithin the time period is included. GFR Non Af Amer 52 (A) mL/min/1.73 m2 [facility] DEPARTMENT OF PATHOLOGY AND GENOMIC MEDICINE GFR Af Amer 63 mL/min/1.73 m2 [facility] DEPARTMENT OF Comment: PATHOLOGY AND GENOMIC Chronic [...] Americans. Specimen Plasma specimen Performing Organization Address City/[facility] Cent[facility]ode Phone Number [facility] DEPARTMENT OF PATHOLOGY AND [address] [place] [address] [facility] Basic metabolic panel (02/25/2017 4:00 AM)Only the most recent of2 resultswithin the time period is included. Sodium 138 135 - 148 mEq/L [facility] DEPARTMENT OF PATHOLOGY AND GENOMIC MEDICINE Potassium 4.1 3.5 - 5.0 mEq/L [facility] DEPARTMENT OF PATHOLOGY AND GENOMIC MEDICINE Chloride 93 (L) 98 - 112 mEq/L [facility] DEPARTMENT OF PATHOLOGY AND GENOMIC MEDICINE CO2 31 24 - 31 mEq/L [facility] DEPARTMENT OF PATHOLOGY AND GENOMIC MEDICINE Anion gap 14 7 - 15 mEq/L [facility] DEPARTMENT OF PATHOLOGY Comment: AND [employer] [facility] Starting from September , anion gap calculation no longer incorporates potassium. Please note the change. BUN 32 (H) 8 - 23 mg/dL [facility] DEPARTMENT OF PATHOLOGY AND GENOMIC MEDICINE Creatinine 1.0 (H) 0.5 - 0.9 mg/dL [facility] DEPARTMENT OF PATHOLOGY AND GENOMIC MEDICINE Glucose 87 65 - 99 mg/dL [facility] DEPARTMENT OF PATHOLOGY AND GENOMIC MEDICINE Calcium 9.7 8.8 - 10.2 mg/dL [facility] DEPARTMENT OF PATHOLOGY AND GENOMIC MEDICINE Specimen Plasma specimen Performing Organization Address City/State/Zipcode Phone Number [facility] DEPARTMENT OF PATHOLOGY AND [address] [place] [address] GENOMIC MEDICINE Echocardiogram complete w contrast and 3D if needed (02/24/2017 4:00 PM) Narrative Performed At [facility] Echocardiography Report [id number] [facility] [address], [place] [address] Pat.Name:Moon KNOX.ID:[id number] .Date: 02/24/2017 Refer.MD:ZURDO VARGAS MD Exam Time: 3:12:00 PMStudy Type:Routine Echo Height:65inWeight: 106lb BSA: 1.51 m2 DOBAge:1930,86Y Sex: FEMALEBP:118/57 HR:82 bpm Sonogrphr: Vaishali Higgins RDCS, RVT Pat. Stat.:Inpatient Room:[facility] Study Status:Final Echo Event ID:[id number] Order ID:[id number] Reason for Study:Heart Failure History / Clinical:COPD, [...] RAPof 15 mmHg. MEASUREMENTS: 2D Parasternal [place] LVOT 2 cmLA Ds4.9 cm LVIDd4.2 cmIndex2.8 cm/m Ao An2.2 cm LVIDs1.7 cmAo Rtd 2.8 cm Index1.8 cm/m LV%fs 60.9 % LV Pema663.7 g(87-129) IVSd 1.1 cmLVM Xvdgy571.7 g/m2 LVPWd1.1 cmRWT0.5 LA Sng Plane LA [...] 8170.8 cm/s2 AV AC130 msec (83-118) AV NbTy3653.3 cm/s2 LVOT For Flow LVOT Area3.1 cm2 LVOT SV106.8 ml IZROxbJgm455.3 cm/sHR93.5 bpm EUYUboQK39.8 mmHgLVOT CO 10 l/min LVOTmnPG 5.7 mmHgLVOT CI6.6 l/m/m2 LVOT TVI34 cm TV Pressure Gradient TV PkVel 322.3 cm/sTV PG 41.6 mmHg Signed 02/24/2017 07:12 PM Memo Ervin M.D. Procedure Note Interface, Radiology Results In - 02/24/2017 7:13 PM CDT Echocardiography Report [address] [place] [address] Pat.Name: LOLITA KNOX Pat.ID: [id number] St.Date: 02/24/2017 Refer.MD: ZURDO VARGAS MD Exam Time: 3:12:00 PM Study Type:Routine Echo Height: 65in Weight: 106lb BSA: 1.51 m2 Age: 2 1930,86Y Sex: FEMALE BP: 118/57 HR: 82 bpm Sonogrphr: Vaishali Higgins RDCS, RVT Pat. Stat.:Inpatient Room: [facility] Study Status:Final Echo Event ID:[id number] Order ID: [id number] Reason for Study:Heart Failure History / Clinical:COPD, [...] of 15 mmHg. MEASUREMENTS: 2D Parasternal [place] LVOT 2 cm LA Ds 4.9 cm [...] PM Memo Ervin M.D. Performing Organization Address [facility] Phone Number [facility] [address] [place] [address] Magnesium level (02/24/2017 4:00 AM) Magnesium 2.3 1.6 - 2.4 mg/dL [facility] DEPARTMENT OF PATHOLOGY AND GENOMIC MEDICINE Specimen Plasma specimen Performing Organization Address [facility] Phone Number [facility] DEPARTMENT OF PATHOLOGY AND [address] [place] [phone] GENOMIC MEDICINE Hepatic function panel (02/24/2017 4:00 AM) Albumin 3.7 3.5 - 5.0 g/dL [facility] DEPARTMENT OF PATHOLOGY AND GENOMIC MEDICINE Total bilirubin 0.6 0.0 - 1.2 mg/dL [facility] DEPARTMENT OF PATHOLOGY AND GENOMIC MEDICINE Bilirubin direct <0.2 0.0 - 0.3 mg/dL [facility] DEPARTMENT OF PATHOLOGY AND GENOMIC MEDICINE Alkaline phosphatase 91 35 - 104 U/L [facility] DEPARTMENT OF PATHOLOGY AND GENOMIC MEDICINE Protein 6.6 6.3 - 8.3 g/dL [facility] DEPARTMENT OF Comment: PATHOLOGY AND GENOMIC 4.6-7.0 g/dL MEDICINE 1 week 4.4-7.6 g/dL 7 months-1year5.1-7.3 g/dL 1-2 years5.6-7.5 g/dL >3 years6.0-8.0 g/dL 18-150 6.3-8.3 g/dL ALT 22 5 - 50 U/L [facility] DEPARTMENT OF PATHOLOGY AND GENOMIC MEDICINE AST 25 10 - 35 U/L [facility] DEPARTMENT OF PATHOLOGY AND GENOMIC MEDICINE Specimen Plasma specimen Performing Organization Address [facility] Phone Number [facility] DEPARTMENT OF PATHOLOGY AND [address] [place] [phone] [facility] MEDICINE Urinalysis screen and microscopy, with reflex to culture (02/23/2017 5:57 PM) Specimen site Clean catch [facility] DEPARTMENT OF PATHOLOGY AND GENOMIC MEDICINE Color, UA Straw [facility] DEPARTMENT OF PATHOLOGY AND GENOMIC MEDICINE Appearance, UA Clear [facility] DEPARTMENT OF PATHOLOGY AND GENOMIC MEDICINE Specific gravity, UA 1.009 1.001 - 1.035 [facility] DEPARTMENT OF PATHOLOGY AND GENOMIC MEDICINE pH, UA 8.0 5.0 - 8.5 [facility] DEPARTMENT OF PATHOLOGY AND GENOMIC MEDICINE Protein, UA Negative Negative [facility] DEPARTMENT OF PATHOLOGY AND GENOMIC MEDICINE Glucose, UA Negative Negative [facility] DEPARTMENT OF PATHOLOGY AND GENOMIC MEDICINE Ketones, UA Negative Negative [facility] DEPARTMENT OF PATHOLOGY AND GENOMIC MEDICINE Bilirubin, UA Negative Negative [facility] DEPARTMENT OF PATHOLOGY AND GENOMIC MEDICINE Blood, UA Negative Negative [facility] DEPARTMENT OF PATHOLOGY AND GENOMIC MEDICINE Nitrite, UA Negative Negative [facility] DEPARTMENT OF PATHOLOGY AND GENOMIC MEDICINE Urobilinogen, UA <2.0 <2.0 [facility] DEPARTMENT OF PATHOLOGY AND GENOMIC MEDICINE Leukocyte esterase, UA Small (A) Negative [facility] DEPARTMENT OF PATHOLOGY AND GENOMIC MEDICINE Epithelial cells, UA 1 /HPF [facility] DEPARTMENT OF PATHOLOGY AND GENOMIC MEDICINE WBC, UA 4 0 - 4 /HPF [facility] DEPARTMENT OF PATHOLOGY AND GENOMIC MEDICINE RBC, UA 1 0 - 2 /HPF [facility] DEPARTMENT OF PATHOLOGY AND GENOMIC MEDICINE Bacteria, UA Many (A) None seen [facility] DEPARTMENT OF PATHOLOGY AND GENOMIC MEDICINE Yeast, UA None seen [facility] DEPARTMENT OF PATHOLOGY AND GENOMIC MEDICINE Yeast with pseudohyphae, UA None seen [facility] DEPARTMENT OF PATHOLOGY AND GENOMIC MEDICINE Specimen Urine Performing Organization Address City/State/Zipcode Phone Number [facility] DEPARTMENT OF PATHOLOGY AND [address] [place] [address] [facility] MEDICINE Gram stain (02/23/2017 4:43 PM) Gram stain result Rare WBC's [facility] DEPARTMENT OF PATHOLOGY AND Many Gram negative rods [facility] MEDICINE Comment: Specimen Information Specimen Source: Urine Specimen Site: See UA Specimen Urine Performing Organization Address City/[facility]/Zipcode Phone Number [facility] DEPARTMENT OF PATHOLOGY AND [address] [place] [address] [facility] Urine culture (02/23/2017 4:43 PM) Urine culture isolate Klebsiella pneumoniae [facility] DEPARTMENT OF >10-5 cfu/ml PATHOLOGY AND GENOMIC The performance characteristics of this assay on this isolate MEDICINE were validated by the Microbiology Laboratory at [facility].This source has not been approved by [...] Urine culture isolate Mixed Gram positive davian [facility] DEPARTMENT OF 10-3 cfu/ml PATHOLOGY AND GENOMIC [...] Susceptible Performing Organization Address City/State/Zipcode Phone Number [facility] DEPARTMENT OF PATHOLOGY AND [address] [place] [address] [facility] MEDICINE Troponin (02/23/2017 4:09 PM) Troponin <0.30 0.00 - 0.30 ng/mL [facility] DEPARTMENT OF PATHOLOGY Comment: AND GENOMIC MEDICINE 0.30 - 1.49 ng/mlMay indicate increased risk of acute coronary syndrome. >=1.5 ng/mlConsistent with acute myocardial infarction. The diagnostic value of a single normal or non-diagnostic result is questionable.Serial samples at 2-6 hour intervals are required to rule out acute myocardial injury. Specimen Plasma specimen Performing Organization Address City/State/Zipcode Phone Number [facility] DEPARTMENT OF PATHOLOGY AND [address] [place] [address] GENOMIC MEDICINE ECG ED Preliminary Interpretation - NOT AN ORDER (02/23/2017 2:27 PM) Narrative Performed At Dahiana Brower MD 02/23/20172:27 PM ECG ED Preliminary Interpretation - Not an Order Performed by: DAHIANA BROWER Authorized by: DAHIANA BROWER ECG reviewed by ED Physician in the absence of a tobacco drying machine operator: yes Previous ECG: Previous ECG:Unavailable Interpretation: Interpretation: [...] lumbar vertebral body. Aorta is markedly calcified. [facility]-[id number] Procedure Note Hm Interface, Radiology Results Incoming [...] lumbar vertebral body. Aorta is markedly calcified. [facility]-[id number] Performing Organization Address City/State/Zipcode Phone Number [facility] [address] [place] [address] Troponin, I-Stat (02/23/2017 12:30 PM) Troponin, I-Stat 0.00 0.00 - 0.08 ng/mL DEPARTMENT OF Comment: PATHOLOGY AND GENOMIC 0.09 - 1.49 ng/mlMay indicate increased risk of acute [facility] coronary syndrome. [facility] >=1.5 ng/mlConsistent with acute myocardial infarction. The diagnostic value of a single normal or non-diagnostic result is questionable.Serial samples at 2-6 hour intervals are required to rule out acute myocardial injury. Specimen Plasma specimen Performing Organization Address City/State/Zipcode Phone Number DEPARTMENT OF PATHOLOGY AND [address] [place] [address] B natriuretic pep, I-Stat (02/23/2017 12:30 PM) BNP, I-Stat 587 (H) 0 - 100 pg/mL [facility] Specimen Blood Performing Organization Address City/State/Zipcode Phone Number DEPARTMENT OF PATHOLOGY AND [address] [place] [address] Comprehensive metabolic panel (02/23/2017 12:30 PM) Sodium 137 128 - 145 mEq/L [facility] Potassium 4.7 3.6 - 5.1 mEq/L [facility] CO2 35 (H) 18 - 33 mEq/L [facility] Chloride 96 (L) 98 - 108 mEq/L [facility] Glucose 95 73 - 118 mg/dL [facility] Calcium 9.5 8.0 - 10.3 mg/dL [facility] BUN 24 (H) 7 - 22 mg/dL [facility] Creatinine 1.1 0.6 - 1.2 mg/dL [facility] Alkaline phosphatase 80 42 - 141 U/L [facility] ALT 24 10 - 47 U/L [facility] AST 29 11 - 38 U/L [facility] Total bilirubin 0.9 0.2 - 1.6 mg/dL [facility] Albumin 4.3 3.3 - 5.5 g/dL [facility] Protein 6.9 6.4 - 8.1 g/dL [facility] Anion gap 6 (L) 7 - 15 mEq/L DEPARTMENT OF Comment: PATHOLOGY AND GENOMIC Starting from September , anion gap calculation [facility] no longer incorporates potassium. Please note the change. [facility] A/G ratio 1.7 0.7 - 3.8 [facility] Specimen Plasma specimen Performing Organization Address City/State/Zipcode Phone Number DEPARTMENT OF PATHOLOGY AND [address] [place] [address] [facility] ECG 12 lead (02/23/2017 12:21 PM) Ventricular rate 78 [facility] Atrial rate 91 [facility] QRSD interval 98 [facility] QT interval 386 [facility] QTC interval 440 [facility] QRS axis 1 -44 [facility] T wave axis 52 [facility] EKG impression Atrial fibrillation-Left axis deviation-Moderate voltage criteria for LVH, may be normal variant-Abnormal ECG-In automated comparison with ECG of 01-FEB-2013 19:14,-Atrial fibrillation has replaced Sinu [facility]USE s rhythm- Performing Organization Address City/State/Zipcode Phone Number [facility] [address] [place] [address] after 01/13/2017 Insurance Payer Benefit Plan / Group Subscriber ID Type Phone Address MEDICARE MEDICARE PART A AND B xxxxxxxxxx Medicare [place], [place] AETNA AETNA PPO OPEN CHOICE xxxxxxxxx PPO Home: [id number] [phone] [id number]
[2018-01-14] MEDS ORDERED: CEFTRIAXONE 1000 MG/VIAL ONE (14:28)
[2018-01-14] MEDS ORDERED: LIDOCAINE 1% MPF 2 ML AMPULE ONE (14:28)
[2018-01-14] MEDS ORDERED: LIDOCAINE 1% MPF 5 ML VIAL ONE (14:30)
[2018-01-14 14:53] LABS: Urine Blood NEGATIVE (NEG); Urine Glucose NEGATIVE (NEG); Urine Protein 1+ (NEG); Urine Specific Gravity 1.015 (1.005-1.030); Urine pH 6.5 (5.0-7.0)
[2018-01-14 14:57] LABS: Urine Bacteria >50 /HPF (<20); Urine Culture Reflex Order NOT NEEDED; Urine RBC <5 /HPF (NONE SEEN)
--- NOTE | 2018-01-14 15:18 | ER ---
Nurse's Notes [facility] Name: Jo Christopher Age: 87 yrs Sex: Female : 1930 Arrival Date: 01/14/2018 Time: 11:48 Bed 23 Private MD: Negro Villela Diagnosis: Urinary tract infection, site not specified Presentation: 01/14 12:19 Presenting complaint: Patient states: Urinary frequency, foul smelling urine for the aj1 past 2 days. Denies dysuria, fever. Transition of care: patient was not received from another setting of care. Onset of symptoms was January 12, 2018. Risk Assessment: Do you want to hurt yourself or someone else? Patient reports no desire to harm self or others. Initial Sepsis Screen: Does the patient meet any 2 criteria? No. Patient's initial sepsis screen is negative. Does the patient have a suspected source of infection? No. Patient's initial sepsis screen is negative. Care prior to arrival: None. 12:19 Method Of Arrival: Ambulatory aj1 12:19 Acuity: ANTHONY 4 aj1 Triage Assessment: 12:26 General: Appears in no apparent distress. comfortable, Behavior is calm, cooperative, aj1 appropriate for age. Pain: Denies pain. Neuro: Level of Consciousness is awake, alert, obeys commands. Cardiovascular: Patient's skin is warm and dry. Respiratory: Airway is patent Respiratory effort is even, unlabored, Respiratory pattern is regular, symmetrical. : Reports urinary frequency, foul smelling urine Denies burning with urination. Historical: - Allergies: 12:26 No Known Allergies; aj1 - Home Meds: 12:26 amlodipine 10 mg tab 1 tab once daily [Active]; biotin 5000mg Oral cap [Active]; aj1 calcium [Active]; carvedilol 25 mg Oral tab 1 tab 2 times per day [Active]; Co Q-10 Oral [Active]; Eliquis 2.5 mg Oral tab 1 tab 2 times per day [Active]; furosemide 40 mg Oral tab 1 tab 3 times per day [Active]; gabapentin 100 mg Oral cap 100mg at breakfast, 200mg at noon, 200mg at dinner and 1500mg at bedtime [Active]; ipratropium-albuterol 0.5 mg-3 mg(2.5 mg base)/3 mL Inhl nebu 3 mL 4 times per day [Active]; levocetirizine 5 mg Oral tab 1 tab once daily [Active]; levothyroxine 37.5 tab 1 tab once daily [Active]; Magnesium Oxide Oral [Active]; montelukast 10 mg Oral tab 1 tab once daily [Active]; multivitamin with iron Oral tab [Active]; NAC 600 mg Oral cap twice a day [Active]; omeprazole 40 mg Oral cpDR 1 cap once daily [Active]; Potassium Chloride Oral [Active]; spironolactone 25 mg Oral tab 1 tab once daily [Active]; turmeric root extract Oral [Active]; Vitamin B-12 Oral [Active]; Vitamin B-6 Oral [Active]; Vitamin C Oral [Active]; Vitamin D3 Oral [Active]; - PMHx: 12:26 Aortic Stenosis; Atrial Fib; CHF; CLL; COPD; Hypertension; Hypothyroidism; mitral valve aj1 prolapse; neuropathy; - Immunization history:: Flu vaccine is up to date. - Social history:: Smoking status: Patient/guardian denies using tobacco. - Ebola Screening: : Patient denies travel to an Ebola-affected area in the 21 days before illness onset. Screenin:00 Abuse screen: Denies threats or abuse. Denies injuries from another. Nutritional kr2 screening: No deficits noted. Tuberculosis screening: No symptoms or risk factors identified. Fall Risk Ambulatory Aid- Crutches/Cane/Walker (15 pts). Assessment: 14:00 General: Appears in no apparent distress. comfortable, well groomed, well developed, kr2 well nourished, Behavior is calm, cooperative, appropriate for age. Pain: Denies pain. Neuro: Level of Consciousness is awake, alert, obeys commands, Oriented to person, place, time, situation, Appropriate for age. Cardiovascular: Capillary refill < 3 seconds in bilateral fingers Patient's skin is warm and dry. Respiratory: Airway is patent Respiratory effort is even, unlabored, Respiratory pattern is regular, symmetrical. GI: Abdomen is flat, non-distended, Patient currently denies nausea, vomiting. : Urine is clear, Reports urinary frequency, and odor. 15:22 Reassessment: Patient appears in no apparent distress at this time. Patient is alert, kr2 oriented x 3, equal unlabored respirations, skin warm/dry/pink. Patient denies pain at this time. Vital Signs: 12:26 BP 111 / 64; Pulse 68; Resp 18; Temp 97.4(O); Pulse Ox 95% on R/A; Weight 51.71 kg (R); aj1 Height 5 ft. 6 in. (167.64 cm) (R); Pain 0/10; 15:22 BP 110 / 64; Pulse 68; Resp 17; Pulse Ox 97% on R/A; kr2 12:26 Body Mass Index 18.40 (51.71 kg, 167.64 cm) [facility] ED Course: 11:48 Patient arrived in ED. as 11:48 Negro Villela is Private Physician. as 12:24 Triage completed. aj1 12:26 Arm band placed on Patient placed in waiting room, Patient notified of wait time. [facility] 13:54 eMagan Newton, APOLINAR is Primary Nurse. kr2 13:58 Reji Mccarthy PA is PHCP. [facility] 13:58 Shelton Choi MD is Attending Physician. [facility] 14:00 Patient has correct armband on for positive identification. Bed in low position. Call kr2 light in reach. Side rails up X 1. Pulse ox on. NIBP on. 15:23 No provider procedures requiring assistance completed. Patient did not have IV access kr2 during this emergency room visit. Administered Medications: 14:31 Drug: Rocephin (cefTRIAXone) 1 grams Route: IM; Site: right gluteus; kr2 15:24 Follow up: Response: No adverse reaction kr2 Outcome: 15:17 Discharge ordered by . [facility] 15:24 Discharged to home ambulatory, with family. kr2 15:24 Condition: good 15:24 Discharge instructions given to patient, Instructed on discharge instructions, follow up and referral plans. medication usage, Demonstrated understanding of instructions, follow-up care, medications, Prescriptions given X 1. 15:24 Patient left the ED. kr2 Addendum: 01/17/2018 13:38 Addendum: Culture Results: Positive urine culture. Phone call Attempt #1 No answer, s s Left voice mail Certified letter sent to listed address for patient. Signatures: Adelia Child RN RN aj Reji Mccarthy PA PA jmm Martinez, Amelia as Smirch, Shelby, RN RN Lamar, Meagan, RN RN kr2 Corrections: (The following items were deleted from the chart) 13:38 13:38 Addendum: Culture Results: Positive urine culture. Phone call Attempt #1 No ss answer, Left voice mail ss
--- NOTE | 2018-01-14 15:19 | EDPHYS ---
Physician Documentation [facility] Name: Jo Christopher Age: 87 yrs Sex: Female : 1930 Arrival Date: 01/14/2018 Time: 11:48 Bed 23 Private MD: Negro Villela ED Physician Shelton Choi HPI: 01/14 14:17 This 87 yrs old Female presents to ER via Ambulatory with complaints of Pain jmm With Urination. 14:17 The patient presents with urinary symptoms, frequency, urgency. Onset: The jmm symptoms/episode began/occurred yesterday. This is an 87 year old female with a history of aortic stenosis, atril fibrillation, CHF, CLL, COPD, HTN, Hypothyroidism that presents to the ED with dysuria beginning yesterday. Patient complains of increased frequency and burning with urination. Patient denies abdominal pain, back pain, vomiting, or fever. . Historical: - Allergies: 12:26 No Known Allergies; aj1 - Home Meds: 12:26 amlodipine 10 mg tab 1 tab once daily [Active]; biotin 5000mg Oral cap [Active]; aj1 calcium [Active]; carvedilol 25 mg Oral tab 1 tab 2 times per day [Active]; Co Q-10 Oral [Active]; Eliquis 2.5 mg Oral tab 1 tab 2 times per day [Active]; furosemide 40 mg Oral tab 1 tab 3 times per day [Active]; gabapentin 100 mg Oral cap 100mg at breakfast, 200mg at noon, 200mg at dinner and 1500mg at bedtime [Active]; ipratropium-albuterol 0.5 mg-3 mg(2.5 mg base)/3 mL Inhl nebu 3 mL 4 times per day [Active]; levocetirizine 5 mg Oral tab 1 tab once daily [Active]; levothyroxine 37.5 tab 1 tab once daily [Active]; Magnesium Oxide Oral [Active]; montelukast 10 mg Oral tab 1 tab once daily [Active]; multivitamin with iron Oral tab [Active]; NAC 600 mg Oral cap twice a day [Active]; omeprazole 40 mg Oral cpDR 1 cap once daily [Active]; Potassium Chloride Oral [Active]; spironolactone 25 mg Oral tab 1 tab once daily [Active]; turmeric root extract Oral [Active]; Vitamin B-12 Oral [Active]; Vitamin B-6 Oral [Active]; Vitamin C Oral [Active]; Vitamin D3 Oral [Active]; - PMHx: 12:26 Aortic Stenosis; Atrial Fib; CHF; CLL; COPD; Hypertension; Hypothyroidism; mitral valve aj1 prolapse; neuropathy; - Immunization history:: Flu vaccine is up to date. - Social history:: Smoking status: Patient/guardian denies using tobacco. - Ebola Screening: : Patient denies travel to an Ebola-affected area in the 21 days before illness onset. ROS: 14:17 Constitutional: Negative for fever, chills, and weight loss, Cardiovascular: Negative jmm for chest pain, palpitations, and edema, Respiratory: Negative for shortness of breath, cough, wheezing, and pleuritic chest pain, Abdomen/GI: Negative for abdominal pain, nausea, vomiting, diarrhea, and constipation. 14:17 : Positive for urinary symptoms. 14:17 Neuro: Negative for weakness. 14:17 All other systems are negative. Exam: 14:17 Constitutional: This is a well developed, well nourished patient who is awake, alert, jmm and in no acute distress. Chest/axilla: Normal chest wall appearance and motion. Cardiovascular: Regular rate and rhythm. No edema appreciated Respiratory: Normal respirations, no respiratory distress appreciated 14:17 Abdomen/GI: Inspection: abdomen appears normal, Bowel sounds: normal, Palpation: abdomen is soft and non-tender, in all quadrants. 14:17 Back: CVA tenderness, is absent, is noted bilaterally. 14:17 Musculoskeletal/extremity: ROM: intact in all extremities. 14:17 Skin: Appearance: Color: normal in color. 14:17 Neuro: Orientation: is normal, Mentation: is normal, Memory: is normal. 14:17 Psych: Behavior/mood is pleasant, cooperative. Vital Signs: 12:26 BP 111 / 64; Pulse 68; Resp 18; Temp 97.4(O); Pulse Ox 95% on R/A; Weight 51.71 kg (R); aj1 Height 5 ft. 6 in. (167.64 cm) (R); Pain 0/10; 15:22 BP 110 / 64; Pulse 68; Resp 17; Pulse Ox 97% on R/A; kr2 12:26 Body Mass Index 18.40 (51.71 kg, 167.64 cm) aj1 MDM: 14:15 Patient medically screened. [facility] 15:16 Data reviewed: vital signs, nurses notes. Counseling: I had a detailed discussion with [facility] the patient and/or guardian regarding: the historical points, exam findings, and any diagnostic results supporting the discharge/admit diagnosis, lab results, the need for outpatient follow up, to return to the emergency department if symptoms worsen or persist or if there are any questions or concerns that arise at home. ED course: Previous urine culture reviewed. Sensitive to macrobid. Patient given strict return precautions. Patient understood and agrees with the plan of care. . 15:16 ED course: Patient's vitals, HPI, and PE are not consistent with urosepsis or [facility] pyelonephritis. . 01/14 14:16 Order name: Urine Microscopic Only; Complete Time: 15:01 [facility] 01/14 14:16 Order name: Urine Culture [facility] 01/14 14:16 Order name: Urine Dipstick-Ancillary (obtain specimen); Complete Time: 14:17 [facility] 01/14 14:52 Order name: Urine Dipstick--Ancillary (enter results); Complete Time: 15:01 eb Administered Medications: 14:31 Drug: Rocephin (cefTRIAXone) 1 grams Route: IM; Site: right gluteus; kr2 15:24 Follow up: Response: No adverse reaction kr2 Disposition: 17:50 Co-signature as Attending Physician, Shelton Choi MD. rn Disposition: 01/14/18 15:17 Discharged to Home. Impression: Urinary tract infection, site not specified. - Condition is Stable. - Discharge Instructions: Urinary Tract Infection, Adult. - Prescriptions for Macrobid 100 mg Oral Capsule - take 1 capsule by ORAL route every 12 hours for 7 days; 14 capsule. - Medication Reconciliation Form, Thank You Letter, Antibiotic Education, Prescription Opioid Use form. - Follow up: Private Physician; When: As needed; Reason: Recheck today's complaints, Continuance of care, Re-evaluation by your physician. Signatures: Dispatcher [employer] EDMS Adelia Child RN RN aj1 Reji Mccarthy PA PA [facility] Shelton Choi MD MD rn Reaves, Karey, RN RN kr2 Corrections: (The following items were deleted from the chart) 15:24 15:17 01/14/2018 15:17 Discharged to Home. Impression: Urinary tract infection, site kr2 not specified. Condition is Stable. Forms are Medication Reconciliation Form, Thank You Letter, Antibiotic Education, Prescription Opioid Use. Follow up: Private Physician; When: As needed; Reason: Recheck today's complaints, Continuance of care, Re-evaluation by your physician. [email or web address]
[2018-01-14 15:38] VITALS: TEMP 97.4
[2018-01-14 15:39] VITALS: BP 110/64; O2SAT 97
== END 2018-01-14 15:24 | disposition home or self-care (01) ==
LOC: ER 11:47
DX: N39.0 Urinary tract infection, site not specified (principal); I10 Essential (primary) hypertension; E03.9 Hypothyroidism, unspecified; I48.91 Unspecified atrial fibrillation; I50.9 Heart failure, unspecified; I34.1 Nonrheumatic mitral (valve) prolapse; J44.9 Chronic obstructive pulmonary disease, unspecified; Z79.01 Long term (current) use of anticoagulants
CPT/HCPCS: 81003; 81015; 87077; 87086; 87088; 87186; 96372; 99283; J2001

== ENCOUNTER 2018-08-24 10:25 | Inpatient (IN) | payer OTHER ==
--- OUTSIDE RECORDS SUMMARY | 2018-08-24 10:27 | XMS REPORT ---
:1930 [facility] Address [address] [place] [address] Dr. Espinoza [address] [place] [id number] Care Team Providers Name Role Phone Unavailable Unavailable Unavailable Problems This patient has no known problems. Allergies, Adverse Reactions, Alerts This patient has no known allergies or adverse reactions. Medications This patient has no known medications.
--- OUTSIDE RECORDS SUMMARY | 2018-08-24 10:27 | XMS REPORT | Clinical Summary ---
:1930 Author Organization [facility] Address [address] [place] [address] Care Team Providers Name Role Phone Negro Villela MD Primary Care Provider Allergies No Known Allergies Medications Medication Sig Dispensed Refills Start Date End Date Status apixaban (ELIQUIS) Take by mouth 2 0 Active 2.5 mg tablet (two) times a day. montelukast Take 10 mg by mouth 0 Active (SINGULAIR) 10 mg nightly. tablet gabapentin Take 100 mg by 0 Active (NEURONTIN) 100 mg mouth 3 (three) capsule times a day. carvedilol (COREG) 25 Take 25 mg by mouth 0 Active MG tablet 2 (two) times a day with meals. amLODIPine (NORVASC) Take 10 mg by mouth 0 Active 10 mg tablet daily. omeprazole (PriLOSEC) Take 40 mg by mouth 0 Active 40 MG capsule daily. levothyroxine Take 37.5 mcg by 0 Active (SYNTHROID, LEVOXYL) mouth every 88 mcg tablet morning. ipratropium-albuterol Take 3 mL by 0 Active (DUO-NEB) 0.5-2.5 nebulization 4 mg/mL nebulizer (four) times a day. cyanocobalamin 1000 Take 1,000 mcg by 0 Active MCG tablet mouth daily. pyridoxine, vitamin Take 100 mg by 0 Active B6, (B-6) 100 MG mouth daily. tablet CALCIUM CARBONATE Take by mouth. 0 Active (CALCIUM 500 ORAL) cholecalciferol, Take 1,000 Units by 0 Active vitamin D3, (VITAMIN mouth daily. D3) 1,000 unit capsule magnesium gluconate Take 500 mg by 0 Active (MAGONATE) 500 mg mouth daily. tablet tablet multivitamin Take 1 tablet by 0 Active (THERAGRAN) tablet mouth daily. potassium 99 mg Take 595 mg by 0 Active tablet mouth. ascorbic acid, Take 1,000 mg by 0 Active vitamin C, (vitamin mouth daily. C) 1000 MG tablet UBIDECARENONE/VITAMIN Take by mouth. 0 Active E MIXED (COQ10 SG 100 ORAL) ACETYLCYSTEINE (NAC Take by mouth. 0 Active ORAL) TURMERIC ROOT EXTRACT Take by mouth. 0 Active ORAL BIOTIN ORAL Take by mouth. 0 Active gabapentin Take 1,500 mg by 0 Active (NEURONTIN) 300 mg mouth nightly. capsule Active Problems Problem Noted Date Acute on chronic congestive heart failure 02/23/2017 Acute hypoxemic respiratory failure 02/23/2017 Immunizations Name Dates Previously Given Next Due FLUCELVAX QUAD PF (0.5mL syringe) 02/25/2017 Social History Tobacco Use Types Packs/Day Years Used Date Never Smoker Alcohol Use Drinks/Week oz/Week Comments No Sex Assigned at Date Recorded Not on file Job Start Date Occupation Industry Not on file Not on file Not on file Travel History Travel Start Travel End No recent travel history available. Last Filed Vital Signs Not on file Plan of Treatment Health Maintenance Due Date Last Done Comments SHINGLES VACCINES (#1) 1979 65+ PNEUMOCOCCAL VACCINE (1 of 2 - PCV13) 1994 PNEUMOCOCCAL POLYSACCHARIDE VACCINE AGE 65 AND OVER 1994 INFLUENZA VACCINE 01/03/2018 02/25/2017 Results Not on fileafter 08/23/2017 Insurance Payer Benefit Plan / Group Subscriber ID Type Phone Address MEDICARE MEDICARE PART A AND B xxxxxxxxxx Medicare [place], [place] AET[employer] A[employer] PPO OPEN CHOICE xxxxxxxxx PPO Advance Directives Patient has advance care planning documents, and code status on file. For more information, please contact:[place] [address] Code Status Date Activated Date Inactivated Comments Full Code 02/23/2017 4:42 PM 02/25/2017 7:46 PM Code Status decision reached by: Patient
[2018-08-24] MEDS ORDERED: FAMOTIDINE 20 MG/2 ML VIAL IV ONE (11:38)
[2018-08-24] MEDS ORDERED: FUROSEMIDE 20 MG/ 2ML VIAL ONE ×2 (11:38→12:33)
[2018-08-24] MEDS ORDERED: METHYLPREDNISOLONE 125 MG INJ ONE (11:38)
[2018-08-24] MEDS ORDERED: IPRATROPIUM BROM 0.5MG/2.5ML ONE (11:38)
[2018-08-24] MEDS ORDERED: LEVALBUTEROL 1.25 MG/3 ML NEB ONE (11:38)
--- NOTE | 2018-08-24 11:38 | RAD REPORT ---
EXAM DESCRIPTION: Margot Single View3 11:29 am CLINICAL HISTORY: Shortness of breath COMPARISON: December 2017 FINDINGS: Moderate bilateral pulmonary opacities. Small to moderate bilateral pleural effusions. Cardiomegaly. IMPRESSION: CHF
[2018-08-24] MEDS ORDERED: PIPER/TAZO/NS 3.375gm 3.375 GM/100 ML BAG ONE (11:39)
[2018-08-24 11:52] LABS: Absolute Lymphocytes (CBC) 0.9 K/uL (0.7-4.9); Absolute Neutrophil 6.9 K/uL (1.8-8.0); Basophils % 0.6 % (0-1.3); Eosinophils % 0.7 % (0-4.4); Hematocrit 34.7 % (36.0-45.0); Lymphocytes % 10.3 % (15.3-44.8); MPV 7.9 fL (7.6-11.3); Monocytes % 10.9 % (3.3-12.3); RBC Red Blood Cell Count 3.72 M/uL (3.86-4.86)
[2018-08-24 11:58] LABS: Protime INR 1.53
--- NOTE | 2018-08-24 12:29 | ER ---
Nurse's Notes [facility] Name: Jo Christopher Age: 88 yrs Sex: Female : 1930 Arrival Date: 08/24/2018 Time: 10:28 Bed 2 Private MD: Diagnosis: Dyspnea, unspecified;Unspecified combined systolic (congestive) and diastolic (congestive) heart failure;Chronic obstructive pulmonary disease with (acute) exacerbation;Pleural effusion in other conditions classified elsewhere;Pleural effusion in conditions classified elsewhere-bilateral;Atrial fibrillation and flutter;Nonrheumatic aortic (valve) stenosis-hx of;Unspecified kidney failure Presentation: 08/24 10:29 Presenting complaint: EMS states: SOB x 2 days, 88-94% on 4LNC, R 28-34, labored. hb Transition of care: patient was not received from another setting of care. Onset of symptoms was August 23, 2018. Risk Assessment: Do you want to hurt yourself or someone else? Patient reports no desire to harm self or others. Care prior to arrival: None. 10:29 Method Of Arrival: EMS: [facility] hb 10:29 Acuity: ANTHONY 2 hb 11:30 Initial Sepsis Screen: Does the patient meet any 2 criteria? RR > 20 per min. Does the tw2 patient have a suspected source of infection? No. Patient's initial sepsis screen is negative. Historical: - Allergies: 10:35 No Known Allergies; hb 10:40 No Known Allergies; tw2 - Home Meds: 10:35 amlodipine 10 mg tab 1 tab once daily [Active]; biotin 5000mg Oral cap [Active]; hb calcium [Active]; Co Q-10 Oral [Active]; carvedilol 25 mg Oral tab 1 tab 2 times per day [Active]; Eliquis 2.5 mg Oral tab 1 tab 2 times per day [Active]; furosemide 40 mg Oral tab 1 tab 3 times per day [Active]; gabapentin 100 mg Oral cap 100mg at breakfast, 200mg at noon, 200mg at dinner and 1500mg at bedtime [Active]; ipratropium-albuterol 0.5 mg-3 mg(2.5 mg base)/3 mL Inhl nebu 3 mL 4 times per day [Active]; levocetirizine 5 mg Oral tab 1 tab once daily [Active]; levothyroxine 37.5 tab 1 tab once daily [Active]; Magnesium Oxide Oral [Active]; montelukast 10 mg Oral tab 1 tab once daily [Active]; multivitamin with iron Oral tab [Active]; NAC 600 mg Oral cap twice a day [Active]; omeprazole 40 mg Oral cpDR 1 cap once daily [Active]; Potassium Chloride Oral [Active]; spironolactone 25 mg Oral tab 1 tab once daily [Active]; turmeric root extract Oral [Active]; Vitamin B-6 Oral [Active]; Vitamin B-12 Oral [Active]; Vitamin C Oral [Active]; Vitamin D3 Oral [Active]; 10:40 amlodipine 10 mg tab 1 tab once daily [Active]; biotin 5000mg Oral cap [Active]; tw2 calcium [Active]; carvedilol 25 mg Oral tab 1 tab 2 times per day [Active]; Co Q-10 Oral [Active]; Eliquis 2.5 mg Oral tab 1 tab 2 times per day [Active]; furosemide 40 mg Oral tab 1 tab 3 times per day [Active]; gabapentin 100 mg Oral cap 100mg at breakfast, 200mg at noon, 200mg at dinner and 1500mg at bedtime [Active]; ipratropium-albuterol 0.5 mg-3 mg(2.5 mg base)/3 mL Inhl nebu 3 mL 4 times per day [Active]; levocetirizine 5 mg Oral tab 1 tab once daily [Active]; levothyroxine 37.5 tab 1 tab once daily [Active]; Magnesium Oxide Oral [Active]; multivitamin with iron Oral tab [Active]; montelukast 10 mg Oral tab 1 tab once daily [Active]; NAC 600 mg Oral cap twice a day [Active]; omeprazole 40 mg Oral cpDR 1 cap once daily [Active]; Potassium Chloride Oral [Active]; spironolactone 25 mg Oral tab 1 tab once daily [Active]; - PMHx: 10:40 Aortic Stenosis; Atrial Fib; Hypertension; Hypothyroidism; COPD; CHF; mitral valve tw2 prolapse; CLL; neuropathy; - Immunization history:: Adult Immunizations up to date, Adult Immunizations. - Social history:: Smoking status: Patient/guardian denies using tobacco, Smoking status: . - Ebola Screening: : No symptoms or risks identified at this time Patient denies travel to an Ebola-affected area in the 21 days before illness onset. - Family history:: not pertinent. Screenin:30 Abuse screen: Denies threats or abuse. Nutritional screening: No deficits noted. tw2 Tuberculosis screening: No symptoms or risk factors identified. Fall Risk Secondary diagnosis (15 points) impaired mobility. Assessment: 11:31 General: Appears in no apparent distress. slender, Behavior is calm, cooperative, tw2 appropriate for age. Pain: Denies pain. Neuro: Level of Consciousness is awake, alert, obeys commands, Oriented to person, place, time, situation. Cardiovascular: Rhythm is regular. Respiratory: Airway is patent Respiratory effort is labored, Respiratory pattern is tachypnea Breath sounds are diminished. GI: No signs and/or symptoms were reported involving the gastrointestinal system. Abdomen is flat, Bowel sounds present X 4 quads. : No signs and/or symptoms were reported regarding the genitourinary system. EENT: No signs and/or symptoms were reported regarding the EENT system. Derm: No signs and/or symptoms reported regarding the dermatologic system. Musculoskeletal: Range of motion: intact in all extremities. 12:25 Reassessment: RT at bedside for BiPAP setup. hb 13:00 Reassessment: Pt on BiPAP, VSS. Family at bedside. Admission ordered, awaiting room hb assignment at this time. 14:05 Reassessment: Pt c/o anxiety r/t BiPAP mask, Dr. Mckinnon notified Ativan administered hb as ordered. 14:45 Reassessment: BiPAP continues. VSS. Pt reports anxiety relief. Family remains at hb bedside. Vital Signs: 10:31 BP 146 / 81; Pulse 89; Resp 32; Temp 98.4; Pulse Ox 94% on 4 lpm NC; Pain 0/10; hb 11:07 Weight 49.9 kg (R); tw2 11:30 BP 134 / 80; Pulse 80; Resp 30; Pulse Ox 99% on 4 lpm NC; tw2 12:17 Pulse Ox 91% on 30% BiPAP; tw2 13:39 BP 134 / 87; Pulse 88; Resp 30; Pulse Ox 87% on BiPAP; tw2 13:48 hb 12:17 rate 16, 30%, 14/7 tw2 13:39 provider notified. tw2 13:48 BiPAP 14/7, R16, 40% FiO2 hb ED Course: 10:28 Patient arrived in ED. hb 10:28 Bed in low position. Call light in reach. Side rails up X2. log roper on. Pulse tw2 ox on. NIBP on. Warm blanket given. 10:31 Triage completed. hb 10:31 Cristo Mckinnon MD is Attending Physician. jaclyn 10:32 Arm band placed on. hb 11:06 Sofi Ty, APOLINAR is Primary Nurse. hb 11:27 XRAY Chest (1 view) In Process Unspecified. EDMS 11:27 X-ray completed. Portable x-ray completed in exam room. Patient tolerated procedure sw well. 11:49 EKG done, by echo vascular tech. reviewed by Cristo Mckinnon MD. tc 11:55 Maintain EMS IV. Dressing intact. Good blood return noted. Site clean \T\ dry. Gauge \T\ hb site: 20g LEFT AC. 12:05 Inserted saline lock: 22 gauge in right forearm, using aseptic technique. hb 12:15 Fofana cath inserted, using sterile technique, 18 Fr., by md, balloon inflated, to tw2 gravity drainage, urine specimen collected. 12:22 Ghassan Main MD is Hospitalizing Provider. jaclyn 15:00 No provider procedures requiring assistance completed. Patient admitted, IV remains in hb place. Administered Medications: 11:11 Drug: SOLU-Medrol 2 mg/kg Route: IVP; Site: left antecubital; hb 12:20 Follow up: Response: No adverse reaction tw2 11:11 Drug: Xopenex 3.75 mg Route: Inhalation; hb 11:11 Drug: AtroVENT Aerosol 0.5 mg Route: Inhalation; hb 11:20 Drug: Pepcid 20 mg Route: IVP; Site: left antecubital; hb 12:20 Follow up: Response: No adverse reaction tw2 11:22 Drug: Lasix 20 mg Route: IVP; Site: left antecubital; hb 12:20 Follow up: Response: No adverse reaction tw2 12:15 Drug: Zosyn 3.375 grams Route: IVPB; Infused Over: 60 mins; Site: left antecubital; hb 12:20 Drug: Lasix 20 mg Route: IVP; Site: left antecubital; tw2 14:15 Follow up: Response: No adverse reaction tw2 14:15 Drug: Ativan 0.5 mg Route: IVP; Site: left antecubital; tw2 15:15 Follow up: Response: No adverse reaction hb Outcome: 12:28 Decision to Hospitalize by Provider. jaclyn 15:00 Admitted to Tele accompanied by tech, family with patient, via wheelchair, with oxygen, hb with chart. 15:00 Condition: stable 15:00 Instructed on the need for admit, Demonstrated understanding of instructions. 15:08 Patient left the ED. tw2 Signatures: Dispatcher [employer] EDCristo Lopez MD MD cha Callis, Tiffany, blast furnace helper EKG Yahaira Camilo Heather, RN RN Ebony Owen RN RN tw2 Corrections: (The following items were deleted from the chart) 16:30 13:00 Reassessment: Pt on BiPAP, VSS. Family at bedside. hb hb 16:30 14:00 Reassessment: BiPAP continues. VSS. Admission ordered, awaiting room assignment hb at this time. Family remains at bedside. hb
--- NOTE | 2018-08-24 12:29 | EDPHYS ---
Physician Documentation [facility] Name: Jo Christopher Age: 88 yrs Sex: Female : 1930 Arrival Date: 08/24/2018 Time: 10:28 Bed 2 Private MD: ED Physician Cristo Mckinnon HPI: 08/24 10:57 This 88 yrs old Female presents to ER via EMS with complaints of Shortness Of jaclyn Breath. 10:57 The patient has shortness of breath with light activity. Onset: The symptoms/episode jaclyn began/occurred 2 day(s) ago. Duration: The symptoms are continuous. The patient's shortness of breath is aggravated by coughing, light activity. Associated signs and symptoms: Pertinent positives: This patient does not have any pertinent positive signs or symptoms associated with shortness of breath. Severity of symptoms: At their worst the symptoms were mild moderate this morning. The patient has not experienced similar symptoms in the past. Historical: - Allergies: 10:35 No Known Allergies; hb 10:40 No Known Allergies; tw2 - Home Meds: 10:35 amlodipine 10 mg tab 1 tab once daily [Active]; biotin 5000mg Oral cap [Active]; hb calcium [Active]; Co Q-10 Oral [Active]; carvedilol 25 mg Oral tab 1 tab 2 times per day [Active]; Eliquis 2.5 mg Oral tab 1 tab 2 times per day [Active]; furosemide 40 mg Oral tab 1 tab 3 times per day [Active]; gabapentin 100 mg Oral cap 100mg at breakfast, 200mg at noon, 200mg at dinner and 1500mg at bedtime [Active]; ipratropium-albuterol 0.5 mg-3 mg(2.5 mg base)/3 mL Inhl nebu 3 mL 4 times per day [Active]; levocetirizine 5 mg Oral tab 1 tab once daily [Active]; levothyroxine 37.5 tab 1 tab once daily [Active]; Magnesium Oxide Oral [Active]; montelukast 10 mg Oral tab 1 tab once daily [Active]; multivitamin with iron Oral tab [Active]; NAC 600 mg Oral cap twice a day [Active]; omeprazole 40 mg Oral cpDR 1 cap once daily [Active]; Potassium Chloride Oral [Active]; spironolactone 25 mg Oral tab 1 tab once daily [Active]; turmeric root extract Oral [Active]; Vitamin B-6 Oral [Active]; Vitamin B-12 Oral [Active]; Vitamin C Oral [Active]; Vitamin D3 Oral [Active]; 10:40 amlodipine 10 mg tab 1 tab once daily [Active]; biotin 5000mg Oral cap [Active]; tw2 calcium [Active]; carvedilol 25 mg Oral tab 1 tab 2 times per day [Active]; Co Q-10 Oral [Active]; Eliquis 2.5 mg Oral tab 1 tab 2 times per day [Active]; furosemide 40 mg Oral tab 1 tab 3 times per day [Active]; gabapentin 100 mg Oral cap 100mg at breakfast, 200mg at noon, 200mg at dinner and 1500mg at bedtime [Active]; ipratropium-albuterol 0.5 mg-3 mg(2.5 mg base)/3 mL Inhl nebu 3 mL 4 times per day [Active]; levocetirizine 5 mg Oral tab 1 tab once daily [Active]; levothyroxine 37.5 tab 1 tab once daily [Active]; Magnesium Oxide Oral [Active]; multivitamin with iron Oral tab [Active]; montelukast 10 mg Oral tab 1 tab once daily [Active]; NAC 600 mg Oral cap twice a day [Active]; omeprazole 40 mg Oral cpDR 1 cap once daily [Active]; Potassium Chloride Oral [Active]; spironolactone 25 mg Oral tab 1 tab once daily [Active]; - PMHx: 10:40 Aortic Stenosis; Atrial Fib; Hypertension; Hypothyroidism; COPD; CHF; mitral valve tw2 prolapse; CLL; neuropathy; - Immunization history:: Adult Immunizations up to date, Adult Immunizations. - Social history:: Smoking status: Patient/guardian denies using tobacco, Smoking status: . - Ebola Screening: : No symptoms or risks identified at this time Patient denies travel to an Ebola-affected area in the 21 days before illness onset. - Family history:: not pertinent. ROS: 10:59 Constitutional: Negative for fever, chills, and weight loss, Eyes: Negative for injury, jaclyn pain, redness, and discharge, ENT: Negative for injury, pain, and discharge, Neck: Negative for injury, pain, and swelling, Cardiovascular: Negative for chest pain, palpitations, and edema, Abdomen/GI: Negative for abdominal pain, nausea, vomiting, diarrhea, and constipation, Back: Negative for injury and pain, : Negative for injury, bleeding, discharge, and swelling, MS/Extremity: Negative for injury and deformity, Skin: Negative for injury, rash, and discoloration, Neuro: Negative for headache, weakness, numbness, tingling, and seizure, Psych: Negative for depression, anxiety, suicide ideation, homicidal ideation, and hallucinations, Allergy/Immunology: Negative for hives, rash, and allergies, Endocrine: Negative for neck swelling, polydipsia, polyuria, polyphagia, and marked weight changes, Hematologic/Lymphatic: Negative for swollen nodes, abnormal bleeding, and unusual bruising. 10:59 Respiratory: Positive for cough, dyspnea on exertion, orthopnea, shortness of breath, wheezing, expiratory. Exam: 10:59 Constitutional: This is a well developed, well nourished patient who is awake, alert, jaclyn and in no acute distress. Head/Face: Normocephalic, atraumatic. Eyes: Pupils equal round and reactive to light, extra-ocular motions intact. Lids and lashes normal. Conjunctiva and sclera are non-icteric and not injected. Cornea within normal limits. Periorbital areas with no swelling, redness, or edema. ENT: Nares patent. No nasal discharge, no septal abnormalities noted. Tympanic membranes are normal and external auditory canals are clear. Oropharynx with no redness, swelling, or masses, exudates, or evidence of obstruction, uvula midline. Mucous membranes moist. Neck: Trachea midline, no thyromegaly or masses palpated, and no cervical lymphadenopathy. Supple, full range of motion without nuchal rigidity, or vertebral point tenderness. No Meningismus. Chest/axilla: Normal chest wall appearance and motion. Nontender with no deformity. No lesions are appreciated. Cardiovascular: Regular rate and rhythm with a normal S1 and S2. No gallops, murmurs, or rubs. Normal PMI, no JVD. No pulse deficits. Abdomen/GI: Soft, non-tender, with normal bowel sounds. No distension or tympany. No guarding or rebound. No evidence of tenderness throughout. Back: No spinal tenderness. No costovertebral tenderness. Full range of motion. Female : Normal external genitalia. Skin: Warm, dry with normal turgor. Normal color with no rashes, no lesions, and no evidence of cellulitis. MS/ Extremity: Pulses equal, no cyanosis. Neurovascular intact. Full, normal range of motion. Neuro: Awake and alert, GCS 15, oriented to person, place, time, and situation. Cranial nerves II-XII grossly intact. Motor strength 5/5 in all extremities. Sensory grossly intact. Cerebellar exam normal. Normal gait. Psych: Awake, alert, with orientation to person, place and time. Behavior, mood, and affect are within normal limits. 10:59 Respiratory: mild respiratory distress is noted, moderate respiratory distress is noted, Respirations: labored breathing, that is mild, that is moderate, Breath sounds: bronchial sounds, rhonchi, wheezing: expiratory Vital Signs: 10:31 BP 146 / 81; Pulse 89; Resp 32; Temp 98.4; Pulse Ox 94% on 4 lpm NC; Pain 0/10; hb 11:07 Weight 49.9 kg (R); tw2 11:30 BP 134 / 80; Pulse 80; Resp 30; Pulse Ox 99% on 4 lpm NC; tw2 12:17 Pulse Ox 91% on 30% BiPAP; tw2 13:39 BP 134 / 87; Pulse 88; Resp 30; Pulse Ox 87% on BiPAP; tw2 13:48 hb 12:17 rate 16, 30%, 14/7 tw2 13:39 provider notified. tw2 13:48 BiPAP 14/7, R16, 40% FiO2 hb MDM: 10:32 Patient medically screened. [facility] 10:59 Data reviewed: vital signs, nurses notes, lab test result(s), EKG, radiologic studies. 08/24 10:56 Order name: Basic Metabolic Panel 08/24 10:56 Order name: CBC with Diff 08/24 10:56 Order name: LFT's 08/24 10:56 Order name: Magnesium 08/24 10:56 Order name: NT PRO-BNP 08/24 10:56 Order name: PT-INR 08/24 10:56 Order name: Troponin (emerg Dept Use Only) 08/24 10:56 Order name: Blood Culture Adult (2) 08/24 10:56 Order name: Procalcitonin; Complete Time: 14:11 08/24 10:56 Order name: Lipase; Complete Time: 14:11 [facility] 08/24 10:57 Order name: Basic Metabolic Panel; Complete Time: 14:11 [facility] 08/24 10:57 Order name: CBC with Automated Diff; Complete Time: 12:15 [facility] 08/24 10:57 Order name: Liver (Hepatic) Function; Complete Time: 14:11 [facility] 08/24 10:57 Order name: Magnesium; Complete Time: 14:11 [facility] 08/24 10:56 Order name: XRAY Chest (1 view); Complete Time: 12:15 [facility] 08/24 10:56 Order name: EKG; Complete Time: 10:57 [facility] 08/24 10:56 Order name: Cardiac monitoring; Complete Time: 11:54 [facility] 08/24 10:57 Order name: NT PRO-BNP; Complete Time: 14:11 [facility] 08/24 10:57 Order name: Protime (+INR); Complete Time: 12:15 [facility] 08/24 10:57 Order name: Troponin (Emerg Dept Use Only); Complete Time: 14:11 [facility] 08/24 11:51 Order name: BIPAP [facility] 08/24 12:22 Order name: Urine Dipstick--Ancillary (enter results); Complete Time: 14:11 08/24 10:56 Order name: EKG - Nurse/Tech; Complete Time: 11:54 [facility] 08/24 10:56 Order name: IV Saline Lock; Complete Time: 11:54 [facility] 08/24 10:56 Order name: Labs collected and sent; Complete Time: 11:54 [facility] 08/24 10:56 Order name: O2 Per Protocol; Complete Time: 11:54 [facility] 08/24 10:56 Order name: O2 Sat Monitoring; Complete Time: 12:00 [facility] 08/24 11:51 Order name: Fofana; Complete Time: 12:17 [facility] Administered Medications: 11:11 Drug: SOLU-Medrol 2 mg/kg Route: IVP; Site: left antecubital; hb 12:20 Follow up: Response: No adverse reaction tw2 11:11 Drug: Xopenex 3.75 mg Route: Inhalation; hb 11:11 Drug: AtroVENT Aerosol 0.5 mg Route: Inhalation; hb 11:20 Drug: Pepcid 20 mg Route: IVP; Site: left antecubital; hb 12:20 Follow up: Response: No adverse reaction tw2 11:22 Drug: Lasix 20 mg Route: IVP; Site: left antecubital; hb 12:20 Follow up: Response: No adverse reaction tw2 12:15 Drug: Zosyn 3.375 grams Route: IVPB; Infused Over: 60 mins; Site: left antecubital; hb 12:20 Drug: Lasix 20 mg Route: IVP; Site: left antecubital; tw2 14:15 Follow up: Response: No adverse reaction tw2 14:15 Drug: Ativan 0.5 mg Route: IVP; Site: left antecubital; tw2 15:15 Follow up: Response: No adverse reaction hb Disposition: 08/24/18 12:28 Hospitalization ordered by Ghassan Main for Inpatient Admission. Preliminary diagnosis are Dyspnea, unspecified, Unspecified combined systolic (congestive) and diastolic (congestive) heart failure, Chronic obstructive pulmonary disease with (acute) exacerbation, Pleural effusion in other conditions classified elsewhere, Pleural effusion in conditions classified elsewhere - bilateral, Atrial fibrillation and flutter, Nonrheumatic aortic (valve) stenosis - hx of, Unspecified kidney failure. - Bed requested for Telemetry/MedSurg (Inpatient). - Status is Inpatient Admission. tw2 - Condition is Fair. - Problem is new. - Symptoms have improved. UTI on Admission? No Signatures: Dispatcher [employer] EDCristo Lopez MD MD cha Williams, Irene, RN RN Sofi Ty RN RN Ebony Alba RN RN tw2 Ludivina Galloway Corrections: (The following items were deleted from the chart) 13:09 12:28 Hospitalization Ordered by Ghassan Main MD for Inpatient Admission. Preliminary eb diagnosis is Dyspnea, unspecified; Unspecified combined systolic (congestive) and diastolic (congestive) heart failure; Chronic obstructive pulmonary disease with (acute) exacerbation; Pleural effusion in other conditions classified elsewhere; Pleural effusion in conditions classified elsewhere - bilateral; Atrial fibrillation and flutter; Nonrheumatic aortic (valve) stenosis - hx of. Bed requested for Telemetry/MedSurg (Inpatient). Status is Inpatient Admission. Condition is Fair. Problem is new. Symptoms have improved. UTI on Admission? No. jaclyn 14:05 13:09 08/24/2018 12:28 Hospitalization Ordered by Ghassan Main MD for Inpatient eb Admission. Preliminary diagnosis is Dyspnea, unspecified; Unspecified combined systolic (congestive) and diastolic (congestive) heart failure; Chronic obstructive pulmonary disease with (acute) exacerbation; Pleural effusion in other conditions classified elsewhere; Pleural effusion in conditions classified elsewhere - bilateral; Atrial fibrillation and flutter; Nonrheumatic aortic (valve) stenosis - hx of. Bed requested for Telemetry/MedSurg (Inpatient). Status is Inpatient Admission. Condition is Fair. Problem is new. Symptoms have improved. UTI on Admission? No. eb 14:12 14:05 08/24/2018 12:28 Hospitalization Ordered by Ghassan Main MD for Inpatient jaclyn Admission. Preliminary diagnosis is Dyspnea, unspecified; Unspecified combined systolic (congestive) and diastolic (congestive) heart failure; Chronic obstructive pulmonary disease with (acute) exacerbation; Pleural effusion in other conditions classified elsewhere; Pleural effusion in conditions classified elsewhere - bilateral; Atrial fibrillation and flutter; Nonrheumatic aortic (valve) stenosis - hx of. Bed requested for Telemetry/MedSurg (Inpatient). Status is Inpatient Admission. Condition is Fair. Problem is new. Symptoms have improved. UTI on Admission? No. eb 15:08 14:12 08/24/2018 12:28 Hospitalization Ordered by Ghassan Main MD for Inpatient tw2 Admission. Preliminary diagnosis is Dyspnea, unspecified; Unspecified combined systolic (congestive) and diastolic (congestive) heart failure; Chronic obstructive pulmonary disease with (acute) exacerbation; Pleural effusion in other conditions classified elsewhere; Pleural effusion in conditions classified elsewhere - bilateral; Atrial fibrillation and flutter; Nonrheumatic aortic (valve) stenosis - hx of; Unspecified kidney failure. Bed requested for Telemetry/MedSurg (Inpatient). Status is Inpatient Admission. Condition is Fair. Problem is new. Symptoms have improved. UTI on Admission? No. jaclyn
[2018-08-24 12:30] LABS: ALT/SGPT 20 U/L (12-78); AST/SGOT 22 U/L (15-37); Albumin 3.9 g/dL (3.4-5.0); Alkaline Phosphatase 111 U/L (45-117); BUN Blood Urea Nitrogen 48 mg/dL (7-18); Bicarbonate 33 mmol/L (21-32); Bilirubin Direct 0.3 mg/dL (0-0.2); Bilirubin Total 0.8 mg/dL (0.2-1.0); Glucose Level 98 mg/dL (74-106); Lipase 64 U/L (73-393); Magnesium 2.7 mg/dL (1.8-2.4); NT PRO-BNP 5656 pg/mL (<450); Potassium 4.7 mmol/L (3.5-5.1); Protein, Total 8.4 g/dL (6.4-8.2); Sodium Level 134 mmol/L (136-145); Troponin (Emerg Dept Use Only) < 0.02 ng/mL (0.0-0.045)
[2018-08-24 13:52] LABS: Urine Blood NEGATIVE (NEG); Urine Glucose NEGATIVE (NEG); Urine Protein NEGATIVE (NEG)
[2018-08-24] MEDS ORDERED: LORazepam 2 MG/ML VIAL ONE (14:22)
[2018-08-24] MEDS ORDERED: ONDANSETRON 4 MG/2 ML VIAL IV PRN (14:43)
[2018-08-24 15:05] VITALS: BMI 19.7
[2018-08-24] MEDS: IPRATROPIUM BROM 0.5MG/2.5ML NEB SCH ×2 (15:32→20:05)
[2018-08-24] MEDS: ALBUTEROL 2.5 MG/3 ML NEB SOL NEB SCH ×2 (15:32→20:05)
--- NOTE | 2018-08-24 15:37 | CON ---
History Of Present Illness: Ms. Christopher is 88. She has a history of COPD, pulmonary fibrosis, co ngestive heart failure, and severe aortic stenosis. She has been offered a transcutaneous aortic osmar ve replacement, but refused and is now officially do not resuscitate. She was brought to the [facility] because her breathing was worse. She has home oxygen. She has BiPAP at home. Her outpatient medi cations have been not updated recently, but she has been on apixaban, spironolactone, Lasix, and amlo dipine. Physical Examination: General: Ms. Christopher looks severely chronically ill. She is alert. She is on a BiPAP machine. It is a little hard to understand her. She denies chest pain. Lungs: Revealed diffuse crackles and wheezes. Heart exam: Reveals a regular rate and rhythm. Systolic murmur consistent with aortic stenosis. Diagnostic Studies: Chest x-ray reveals bilateral pleural effusions, cardiomegaly, a lot of intersti tial markings, probably both pulmonary edema and interstitial fibrosis. Recommendation: My only recommendation is that we diurese her and get her more comfortable and then she can return to home care, perhaps hospice care as in order at this point. DEVI/FELICITA Voice ID: [id number] Report ID: [id number]
[2018-08-24] MEDS ORDERED: IPRATROPIUM NS PRN (16:04)
[2018-08-24] MEDS: FUROSEMIDE 40 MG/4 ML VIAL IV SCH (16:41)
[2018-08-24] MEDS: METHYLPREDNISOLONE 40 MG INJ IV SCH (20:00)
[2018-08-24] MEDS: GABAPENTIN 300 MG CAP PO SCH (20:00)
[2018-08-24] MEDS: LORAZEPAM 0.5 MG TABLET PO SCH (20:01)
[2018-08-24] MEDS: APIXABAN 2.5 MG TABLET PO SCH (20:01)
[2018-08-24] MEDS ORDERED: HOME MED 1 EA UNK (Gabapentin [Neurontin] 300 MG) PO SCH (21:00)
[2018-08-24] MEDS ORDERED: GABAPENTIN 100 MG CAP PO SCH (21:00)
--- NOTE | 2018-08-24 21:18 | EKG ---
Test Date: 2018-08-24 Test Time: 11:05:07 Bunghole Borer: FAWN MEASUREMENT RESULTS: Intervals: Rate: 90 IN: QRSD: 84 QT: 344 QTc: 420 [place]: P: IN: QRS: -58 T: 86 INTERPRETIVE STATEMENTS: Atrial fibrillation Left anterior fascicular block Abnormal ECG Compared to ECG 05/20/2008 23:15:28 Left anterior fascicular block now present Sinus rhythm no longer present Left ventricular hypertrophy no longer present Electronically Signed On 08-24-18 21:17:36 CDT by Krystian Ruth
[2018-08-25] MEDS: IPRATROPIUM BROM 0.5MG/2.5ML NEB SCH ×4 (02:46→19:58)
[2018-08-25] MEDS: ALBUTEROL 2.5 MG/3 ML NEB SOL NEB SCH ×4 (02:46→19:58)
--- NOTE | 2018-08-25 03:38 | HP ---
Date of Admission: 08/24/2018 Code Status: Do not resuscitate. Daughter is at the bedside. The patient has a living will. Primary Care Physician: Dr. Villela. Ironworker Apprentice: Dr. Romano. Chief Complaint: Shortness of breath. History Of Present Illness: The patient is an 88-year-old female with a past medical history of jessica estive heart failure, aortic stenosis, COPD, pulmonary fibrosis, hypertension, mitral valve prolapse, atrial fibrillation on anticoagulation, who had a long stay at [facility] for 2 weeks in [facility] for pleural effusions secondary to CHF, also had COPD and pneumonia. The patient has been on ora l antibiotics recently by her PCP. The patient has declined transcutaneous aortic valve replacement, does not wish to have any surgery. The patient has been declining since that hospitalization, has b een requiring oxygen throughout the day at 3.5 L, previously was only on oxygen at night. The patien t is 88 years old, has severe aortic stenosis, and needs replacement, however, has declined. The pat ient also has mitral valve prolapse, CHF, and COPD with pulmonary fibrosis. She does not have much l elton capacity and she is on a stepwise decline, especially with each episode of pneumonia and exacerba tion. The patient states that her shortness of breath has worsened. She is now getting short of gianluca ath while on oxygen just going to the bathroom and back in a wheelchair. Therefore, the patient came into the ER for further evaluation. Her symptoms are constant, moderate, progressively worsening. In the ER, the patient had to be placed on BiPAP. Her imaging studies showed CHF changes with small- to-moderate bilateral pleural effusions. The patient was then referred for admission. Past Medical History: Congestive heart failure; hypertension; aortic stenosis, severe; mitral valve prolapse; chronic atrial fibrillation, on Eliquis; COPD; hypothyroidism; allergic rhinitis; GERD; chr onic kidney disease, stage 3. Surgical History: Hysterectomy, tonsillectomy. Allergies: NO KNOWN DRUG ALLERGIES. Medications: List reviewed. Social History: The patient lives with her daughter, has 3 children. Does not smoke or drink alcoho l. Does require assistance with her activities of daily living, is on home oxygen. Family History: Father had prostate cancer. Mother had heart disease. Review of Systems: Ten-point system reviewed, negative except as per HPI. Physical Examination: Vital Signs: Temperature 98.4, heart rate 89, blood pressure 146/81, respirations 32, O2 94% on BiPA P. General: Awake, alert, oriented x3. Ill-appearing, elderly female in acute respiratory distress. F rail, cachectic. BMI 19. HEENT: Normocephalic, atraumatic. PERRLA. EOMI. BiPAP mask is in place. Neck: Supple. The trachea is midline. The patient does have jugular venous distention. CV: S1, S2. Irregularly irregular. Peripheral pulses weak bilaterally. Respiratory: Diminished breath sounds. Some crackles heard. The patient is tachypneic. Use of acc essory muscles is present. No stridor. Gastrointestinal: Abdomen is soft, nontender, nondistended. Positive bowel sounds. No guarding or rigidity. Extremities: No clubbing, cyanosis. The patient has pedal edema. No calf tenderness. Neuro: Cranial nerves 2-12 intact grossly. No focal neurological deficit. Speech is normal. Stren gth is symmetric, bilateral upper and lower extremities. Skin: The patient has chronic venous stasis changes of lower extremities. Laboratory Data: UA is negative. Sodium 134, potassium 4.7, chloride 95, CO2 33, BUN 48, creatinine 1.51, glucose 98, calcium 9.1, magnesium 2.7. BNP 5656. Procalcitonin less than 0.05. INR 1.53. WBC 8.9, H and H 11.6 and 34.7, platelets 284, neutrophils 77%. Chest x-ray shows [id number] bilateral pleural effusions, cardiomegaly, CHF. Assessment And Plan: An 88-year-old female with: 1.Acute on chronic respiratory failure. The patient is now on BiPAP secondary to CHF, COPD, pulmona ry fibrosis, effusions. We will consult Pulmonology. 2.Acute on chronic congestive heart failure, unknown ejection fraction. We will continue with IV La six and start on CHF guidelines. Appreciate Dr. Ruth's input, has been consulted. We will obtain echocardiogram. We will monitor I's and O's, sodium restriction, daily weights. 3.Acute COPD exacerbation. We will continue breathing treatments, nebulizers, and IV steroids. No need for antibiotics. Procalcitonin is negative. 4.Pulmonary fibrosis. 5.Severe aortic stenosis. The patient refused transcutaneous aortic valve replacement. 6.Mitral prolapse. 7.GERD without esophagitis. We will continue PPI. 8.Hypothyroidism. Continue Synthroid. 9.Essential hypertension. We will resume home medications as appropriate. 10.Chronic kidney disease, stage 3. We will continue to monitor creatinine. Admit the patient to Med-Surg, place as inpatient. Length of stay, greater than [address] Ruth recommends hospice care, which is not unreasona ble. The patient is do not resuscitate, does not wish any aggressive intervention such as aortic osmar ve replacement. We will discuss with family if care and comfort measures are what they want. We naldo manzanares proceed with hospice. /FELICITA Voice ID: [id number]
[2018-08-25] MEDS: LEVOTHYROXINE SOD 0.025 MG TAB PO SCH (05:19)
[2018-08-25 05:46] LABS: Urine Appearance CLEAR; Urine Bilirubin NEGATIVE (NEG); Urine Blood 2+ (NEG); Urine Color YELLOW; Urine Glucose NEGATIVE (NEG); Urine Protein 1+ (NEG); Urine Specific Gravity 1.015 (1.005-1.030); Urine Urobilinogen 0.2 mg/dL (0.2-1.0)
[2018-08-25 05:52] LABS: Urine Microscopic Reflex ORDER UMIC
[2018-08-25 06:15] LABS: Urine Culture Reflex Order REFLEXED
[2018-08-25 06:15] LABS: Absolute Lymphocytes (CBC) 0.6 K/uL (0.7-4.9); Absolute Monocytes 0.2 K/uL (0.1-1.3); Absolute Neutrophil 3.5 K/uL (1.8-8.0); Basophils % 0.2 % (0-1.3); Hematocrit 32.6 % (36.0-45.0); Monocytes % 3.9 % (3.3-12.3); RBC Red Blood Cell Count 3.55 M/uL (3.86-4.86)
[2018-08-25 06:19] LABS: Urine Bacteria <20 /HPF (<20)
[2018-08-25 06:27] LABS: Potassium 4.7 mmol/L (3.5-5.1)
[2018-08-25] MEDS ORDERED: HOME MED 1 EA UNK (Omeprazole [Prilosec] 40 MG) PO SCH (09:00)
[2018-08-25] MEDS ORDERED: HOME MED 1 EA UNK (Levocetirizine Dihydrochloride [Xyzal] 5 MG) PO SCH (09:00)
[2018-08-25] MEDS ORDERED: HOME MED 1 EA UNK (Potassium Chloride [Potassium Chloride] 20 MEQ) PO SCH (09:00)
[2018-08-25] MEDS: POTASSIUM CL SA 10 MEQ TAB PO SCH (09:18)
[2018-08-25] MEDS: MONTELUKAST 10 MG TAB PO SCH (09:19)
[2018-08-25] MEDS: CETIRIZINE HCL 5 MG TABLET PO SCH (09:19)
[2018-08-25] MEDS: GABAPENTIN 100 MG CAP PO SCH ×2 (09:19→13:47)
[2018-08-25] MEDS: APIXABAN 2.5 MG TABLET PO SCH ×2 (09:20→21:32)
[2018-08-25] MEDS: FUROSEMIDE 40 MG/4 ML VIAL IV SCH (09:20)
[2018-08-25] MEDS: SPIRONOLACTONE 25 MG TABLET PO SCH (09:20)
[2018-08-25] MEDS: PANTOPRAZOLE 40MG TABLET PO SCH (09:20)
[2018-08-25] MEDS: METHYLPREDNISOLONE 40 MG INJ IV SCH (09:24)
--- NOTE | 2018-08-25 09:43 | PN ---
Mrs. Christopher with diuresis has done much better. I believe she could be discharged home. She is a [id number], almost hospice care level patient because of the heart failure, aortic stenosis , pulmonary fibrosis, but presently she is doing well, and the need for further hospitalization is no longer present. DEVI/FELICITA Voice ID: [id number] Report ID: [id number]
--- NOTE | 2018-08-25 09:54 | P.CNS ---
Date of Consult: 08/25/18 Chief Complaint: Shortness of breath History of Present Illness: Patient is 88 years of age with a history of congestive heart failure admitted with worsening dyspnea patient has oxygen at home apparently was diagnosed with COPD although she has never smoked is feeling better significant cardiac history compliant with her medication is also anti coagulated is feeling better denies any fever chills cough sputum or hemoptysis no chest pain Allergies No Known Allergies Allergy (Verified 05/16/14 11:22) Home Medications: Amlodipine [Norvasc*] 5 mg PO DAILY WITH BREAKFAST 05/16/14 Ascorbic Acid [Vitamin C*] 500 mg PO DAILY 05/16/14 Calcium Carbonate [Calcium] 500 mg PO DAILY 05/16/14 Cholecalciferol (Vitamin D3) [Vitamin D3] 1,000 unit PO DAILY 05/16/14 Cyanocobalamin [Vitamin B-12*] 1,000 mcg PO DAILY 05/16/14 Furosemide [Lasix*] 40 mg PO TID 05/16/14 Gabapentin [Neurontin*] 200 mg PO TID 05/16/14 Gabapentin [Neurontin] 1,500 mg PO BEDTIME 05/16/14 Ipratropium [Atrovent 0.03% (21MCG)/[place]anger Nasal*] 1 sprays NS QID PRN 05/16/14 Levocetirizine Dihydrochloride [Xyzal] 5 mg PO DAILY 05/16/14 Magnesium Oxide [Magnesium] 250 mg PO BID 05/16/14 Omeprazole [Prilosec] 40 mg PO DAILY 05/16/14 Pyridoxine [Vitamin B-6*] 100 mg PO DAILY 05/16/14 Ubidecarenone/[place]-3/Vit E [Coq-10 & Fish Oil Softgel] 1 each PO DAILY Apixaban [Eliquis *] 2.5 mg PO BID 12/02/17 Spironolactone [Aldactone*] 25 mg PO DAILY 12/02/17 Levothyroxine Sodium [Unithroid] 25 mcg PO DAILY 08/24/18 Montelukast [Singulair] 10 mg PO DAILY 08/24/18 Potassium Chloride 20 meq PO DAILY 08/24/18 - Past Medical/Surgical History Diabetic: No -: Hypertension -: Aortic stenosis, severe -: Mitral valve prolapse -: Atrial fibrillation, chronic anti coagulation therapy -: COPD -: Hypothyroidism -: Allergic rhinitis -: GERD -: Chronic renal disease -: Hysterectomy -: Tonsillectomy Psychosocial/ Personal History: The patient is a . She lives with her daughter. She has 3 children. - Family History Father Medical History: Cancer Mother Medical History: Heart disease - Social History Alcohol use: No CD- Drugs: No Caffeine use: Yes Place of Residence: Home Review of Systems 10-point ROS is otherwise unremarkable General: Weakness Respiratory: Shortness of Breath Physical Examination Temp Pulse Resp BP Pulse Ox 98.2 F 89 18 125/67 92 08/25/18 04:00 08/25/18 09:20 08/25/18 04:00 08/25/18 09:20 08/25/18 04:00 General: Alert, Oriented x3, Mild distress Respiratory: Clear to auscultation bilaterally Cardiovascular: No edema, Irregular heart rate/rhythm, Systolic murmur Gastrointestinal: Normal bowel sounds, Soft and benign Laboratory Data (last 24 hrs) 08/24/18 11:40: PT 17.8 H, INR 1.53 08/24/18 11:40: WBC 8.9, Hgb 11.6 L, Hct 34.7 L, Plt Count 284 08/24/18 11:40: Sodium 134 L, Potassium 4.7, BUN 48 H, Creatinine 1.51 H, Glucose 98, Magnesium 2.7 H D, Total Bilirubin 0.8, AST 22, ALT 20, Alkaline Phosphatase 111, Lipase 64 L - Problems (1) Congestive heart disease Current Visit: Yes Status: Acute Plan: Patient is 88 years of age significant cardiac history including congestive heart failure aortic stenosis compliant with the diuretics admitted with worsening shortness of breath the GARMENT INSPECTOR significantly elevated chest x-ray shows cardiomegaly bilateral pleural effusion in addition she has a history of severe aortic stenosis refused trans aortic valve replacement right now vital signs are satisfactory with a history of COPD although she has never smoked 0 cardiogram pending continue with Lasix patient is feeling better patient also has renal failure she does not take any bronchodilators may benefit from my the Advair Symbicort as a trial to follow up with me in a couple of weeks that will obtain records regarding a pulmonary function testing Qualifiers: Heart failure chronicity: unspecified
[2018-08-25 11:13] LABS: Arterial Blood Carboxyhemoglob 1.9 % (0-1.5); Blood Gas Oxyhemoglobin 84.1 % (94-97)
[2018-08-25] MEDS: DULERA 200/5 (MOMETASONE/FORMOTEROL) INHALER IH SCH ×2 (11:17→21:00)
[2018-08-25] MEDS: ACETAMINOPHEN 500 MG TAB PO PRN ×2 (15:06→21:31)
--- NOTE | 2018-08-25 15:44 | PN ---
Date of Progress Note: 08/25/2018 History: The patient seen and examined. Chart reviewed and case discussed with RN and Dr. Ruth. The patient now off BiPAP, doing significantly better. Currently on nasal cannula. Medications: List reviewed. Physical Examination: Vital Signs: Temperature 98.2, heart rate 89, blood pressure 125/67, respirations 18, O2 92% on 2 L via nasal cannula. General: Awake, alert, oriented x2. Elderly female. Ill-appearing, frail, cachectic. BMI 17. CV: S1, S2. Irregularly irregular. Peripheral pulses weak bilaterally. Respiratory: Diminished breath sounds. No wheezing or stridor. The patient does have some crackles present. Gastrointestinal: Abdomen is soft, nontender, nondistended. Positive bowel sounds. No guarding or rigidity. Extremities: No clubbing, cyanosis, or edema. Skin: The patient has chronic venous stasis changes, bilateral lower extremities. Neuro: Generalized weakness, but no focal neurological deficit. Laboratory Data: Sodium 133, potassium 4.7, chloride 93, CO2 33, BUN 52, creatinine 1.63, glucose 14 2, calcium 9.8. WBC 4.3, H and H 10.9 and 32.6, platelets 262, neutrophils 82%. Assessment And Plan: 1.Acute on chronic respiratory failure with hypoxia. The patient now off BiPAP. Currently on nasal cannula. The patient normally uses 3.5 L at home secondary to acute congestive heart failure, chron ic obstructive pulmonary disease, and pulmonary fibrosis. The patient also has bilateral pleural eff usions. Appreciate Pulmonology input. 2.Acute on chronic congestive heart failure. Unknown ejection fraction. We will decrease Lasix dos e. The patient is diuresed very well. Continue congestive heart failure guidelines. Appreciate Dr. Ruth' input. We will continue to monitor I's and O's. Continue daily weights and fluid restricti on. 3.Acute chronic obstructive pulmonary disease exacerbation. Continue nebulizer treatments, IV stero ids. The patient is no longer wheezing. We will switch over to oral steroids. The patient will nee d Advair or other inhaler upon discharge. 4.Pulmonary fibrosis. 5.Severe aortic stenosis. 6.Mitral prolapse. 7.Gastroesophageal reflux disease without esophagitis. Continue PPI. 8.Hypothyroidism, Synthroid. 9.Essential hypertension, stable on home medications. 10.Chronic kidney disease stage 3. Creatinine mildly elevated today. We will decrease dose of Lasi x and continue to monitor. Avoid NSAIDs. Plan: Likely discharge in a.m., once clinically improved, repeat chest x-ray. /FELICITA Voice ID: [id number] Report ID: [id number]
[2018-08-25] MEDS: FUROSEMIDE 20 MG/ 2ML VIAL IV SCH (16:15)
[2018-08-25] MEDS: GABAPENTIN 300 MG CAP PO SCH (21:32)
[2018-08-25] MEDS: LORAZEPAM 0.5 MG TABLET PO SCH (21:32)
[2018-08-25] MEDS: predniSONE 20 MG TAB PO SCH (21:32)
[2018-08-25] MEDS ORDERED: MELATONIN 3 MG TABLET PO SCH (23:45)
[2018-08-26] MEDS: IPRATROPIUM BROM 0.5MG/2.5ML NEB SCH ×2 (01:10→07:49)
[2018-08-26] MEDS: ALBUTEROL 2.5 MG/3 ML NEB SOL NEB SCH ×2 (01:10→07:48)
[2018-08-26 04:23] LABS: Absolute Lymphocytes (CBC) 0.5 K/uL (0.7-4.9); Absolute Monocytes 0.4 K/uL (0.1-1.3); Absolute Neutrophil 8.1 K/uL (1.8-8.0); Basophils % 0.1 % (0-1.3); Hematocrit 33.6 % (36.0-45.0); Lymphocytes % 5.7 % (15.3-44.8); MPV 8.3 fL (7.6-11.3); Monocytes % 4.9 % (3.3-12.3)
[2018-08-26 04:33] LABS: Potassium 4.7 mmol/L (3.5-5.1)
[2018-08-26 05:11] LABS: Blood Morphology Comment NOT SEEN (NOT SEEN); Platelet Estimate ADEQ; Urine White Blood Cell Casts OK
[2018-08-26] MEDS: LEVOTHYROXINE SOD 0.025 MG TAB PO SCH (05:55)
[2018-08-26 07:24] VITALS: BP 148/76; TEMP 98.6
[2018-08-26 08:44] VITALS: O2SAT 98
[2018-08-26] MEDS: APIXABAN 2.5 MG TABLET PO SCH (09:51)
[2018-08-26] MEDS: POTASSIUM CL SA 10 MEQ TAB PO SCH (09:51)
[2018-08-26] MEDS: predniSONE 20 MG TAB PO SCH (09:52)
[2018-08-26] MEDS: GABAPENTIN 100 MG CAP PO SCH (09:53)
[2018-08-26] MEDS: SPIRONOLACTONE 25 MG TABLET PO SCH (09:53)
[2018-08-26] MEDS: PANTOPRAZOLE 40MG TABLET PO SCH (09:54)
[2018-08-26] MEDS: CETIRIZINE HCL 5 MG TABLET PO SCH (09:54)
[2018-08-26] MEDS: FUROSEMIDE 20 MG/ 2ML VIAL IV SCH (09:55)
[2018-08-26] MEDS: DULERA 200/5 (MOMETASONE/FORMOTEROL) INHALER IH SCH (09:56)
[2018-08-26] MEDS: ACETAMINOPHEN 500 MG TAB PO PRN (09:57)
[2018-08-26] MEDS: MONTELUKAST 10 MG TAB PO SCH (10:02)
--- NOTE | 2018-08-26 10:04 | RAD REPORT ---
EXAM DESCRIPTION: RAD - Chest Single View - 08/26/2018 8:20 am CLINICAL HISTORY: CHF Chest pain. COMPARISON: Chest Single View dated 08/24/2018; Chest Single View dated 12/04/2017; CHEST SINGLE VIEW d ated 05/21/2008; CHEST SINGLE VIEW dated 05/13/2008 FINDINGS: Portable technique limits examination quality. Bilateral pulmonary opacities are present with bilateral pleural effusions, appearing mildly improved . The heart is moderately enlarged in size. No displaced fractures. IMPRESSION: Mild improvement in CHF pattern since prior study.
--- NOTE | 2018-08-26 10:45 | P.PN ---
Subjective Date of Service: 08/26/18 Chief Complaint: Shortness of breath Subjective: Improving (Patient is improving shortness of breath is better) Review of Systems General: Weakness Respiratory: Shortness of Breath Physical Examination - Vital Signs Temperature: 98.6 F Blood Pressure: 148/76 Pulse: 112 Respirations: 16 Pulse Ox (%): 90 - Physical Exam General: Alert, Oriented x3, Mild distress HEENT: Atraumatic, Other Respiratory: Clear to auscultation bilaterally Cardiovascular: No edema, Normal S1 S2 Assessment & Plan - Problems (Diagnosis) (1) Congestive heart disease Current Visit: Yes Status: Acute Plan: Patient's condition is stable doing better she has home oxygen, history of presume COPD and sent her home on a long-acting bronchodilator patient has Dulera prescribed in the hospital also low-dose prednisone 10 mg twice a day for 10 days patient is on diuretics renal function stable follow up with me in 2 weeks Qualifiers: Heart failure chronicity: unspecified
--- NOTE | 2018-08-26 15:27 | DS ---
Date of Discharge: 08/26/2018 Consultants: 1.Dr. Rodriguez with pulmonology. 2.Dr. Ruth with Cardiology. Admitting Diagnoses: 1.Acute on chronic respiratory failure with hypoxia secondary to acute congestive heart failure and chronic obstructive pulmonary disease exacerbation, and underlying pulmonary fibrosis and pulmonary e ffusions. 2.Acute on chronic congestive heart failure, unknown ejection fraction. 3.Acute chronic obstructive pulmonary disease exacerbation. 4.Pulmonary fibrosis. 5.Severe aortic stenosis. 6.Mitral prolapse. 7.Bilateral pleural effusions. 8.Gastroesophageal reflux disease without esophagitis. 9.Hypothyroidism. 10.Essential hypertension. 11.Chronic kidney disease stage 3. Discharge Diagnoses: 1.Acute on chronic respiratory failure with hypoxia, improving. The patient now back to her baselin e of 3 L of oxygen via nasal cannula. 2.Acute on chronic congestive heart failure, unknown ejection fraction, improving. The patient has been diuresed well. 3.Acute chronic obstructive pulmonary disease exacerbation, resolving. 4.Pulmonary fibrosis. 5.Severe aortic stenosis. 6.Mitral prolapse. 7.Gastroesophageal reflux disease without esophagitis. 8.Hypothyroidism. 9.Essential hypertension, stable. 10.Chronic kidney disease stage 3. 11.Atrial fibrillation, chronic, on anticoagulation. Hospital Course: The patient is an 88-year-old female, who comes in with shortness of breath seconda ry to multiple etiologies including congestive heart failure, COPD, pulmonary fibrosis. The patient does have some baseline effusions, was recently in [facility] for 2 weeks. The patient has se brandon aortic stenosis, has declined transaortic valve replacement. The patient does use oxygen about 3.5 L all the time. The patient is declining has dementia, severe pulmonary and cardiac disease, is not willing to undergo aggressive management including valve replacement. The patient was admitted a nd was diuresed, placed on heart failure guidelines. She was also placed on nebulizer treatments and steroids. Cardiology and Pulmonology were consulted. The patient initially required BiPAP, however , was able to be weaned off back to her baseline of 3 L of oxygen via nasal cannula. The patient did not have UTI or pneumonia. No antibiotics were indicated. Her kidney function remained stable. e diuresed well with Lasix. She was counseled again regarding fluid restriction and sodium restricti on, monitoring her weights daily, and to contact her physician if her weight goes up more than 3 poun ds in a day. She will need to take an extra dose of her Lasix if that occurs and to [facility]. The patient's daughter is very involved with her care. The patient did well. S he was able to ambulate to the bathroom without difficulty. She was back to her baseline. Overall, the patient however has a poor prognosis. She is a do not resuscitate, which I believe is appropriat e for her as she would be very poor candidate for mechanical ventilation. Daughter also agrees with do not resuscitate status. The patient was then discharged once cleared by consultants standpoint. Medications: As per medication reconciliation list. Followup: Follow up with primary care physician in 2-3 days. Follow up with inspector brake lining, Dr. Biggs , in 2 weeks. Follow up with taker off braker machine, Dr. Rodriguez, in 2 weeks. Return to ER for worsening co ndition. Diet: Low-sodium, 1500 mL fluid restriction per day. Activity: Fall precautions. Physical Examination: General: Awake, alert, oriented, no acute distress, elderly female. CV: S1, S2. Irregularly irregular. A 3/6 holosystolic murmur present. Gastrointestinal: Abdomen is soft, nontender, nondistended. Positive bowel sounds. Extremities: No clubbing, cyanosis. No pedal edema. Skin: Chronic venous stasis changes of the lower extremities. Neurologic: Nonfocal. Time Spent: Total time spent discharging the patient was 34 minutes. /FELICITA Voice ID: [id number] Report ID: [id number]
== END 2018-08-26 11:40 | disposition home or self-care (01) | DRG 291 ==
LOC: ER 10:25 → ERHOLD 13:38 → 2ND 14:35
PROVIDERS: ADMIT Family Medicine; ATTEND Family Medicine
PROC: 5A09457 Assistance with Respiratory Ventilation, 24-96 Consecutive Hours, Continuous Positive Airway Pressure (ICD-10-PCS; principal; 2018-08-24)
DX: I50.9 Heart failure, unspecified (principal); J96.21 Acute and chronic respiratory failure with hypoxia; J44.1 Chronic obstructive pulmonary disease with (acute) exacerbation; I13.0 Hypertensive heart and chronic kidney disease with heart failure and stage 1 through stage 4 chronic kidney disease, or unspecified chronic kidney disease; N18.3 Chronic kidney disease, stage 3 (moderate); J84.10 Pulmonary fibrosis, unspecified; I35.0 Nonrheumatic aortic (valve) stenosis; E03.9 Hypothyroidism, unspecified; I34.1 Nonrheumatic mitral (valve) prolapse; K21.9 Gastro-esophageal reflux disease without esophagitis; I48.2 Chronic atrial fibrillation; Z79.01 Long term (current) use of anticoagulants
CPT/HCPCS: 36415; 51702; 71045; 80048; 80076; 81003; 81015; 82805; 83690; 83735; 83880; 84145; 84484; 85025; 85610; 87040; 87086; 87088; 93005; 94640; 94660; 96374; 96375; 99285; J1940; J2543; J2920; J2930; J7512; J7606